=== PATIENT | male | born 1960 | race Caucasian/White ===

== ENCOUNTER → 2016-06-17 | Outpatient (CLI) | payer OTHER ==
[~2016-06-17] MED LIST: SIMV40TA2 PO
[2016-06-17 17:55] LABS: BLOOD UREA NITROGEN 17 mg/dl (7-18); BUN/CREATININE RATIO 17.2 (10-20); CALCIUM 8.9 mg/dl (8.5-10.1); CARBON DIOXIDE 26 mmol/L (21-32); CHLORIDE 105 mmol/L (98-107); CREATININE 0.97 mg/dl (0.60-1.40); GLUCOSE 105 mg/dl (70-99); POTASSIUM 3.6 mmol/L (3.5-5.1); SODIUM 140 mmol/L (136-145)
== END | disposition home or self-care (01) ==
LOC: C.LABBFT 12:56
PROVIDERS: ATTEND Internal Medicine
DX: E87.6 Hypokalemia (principal)

== ENCOUNTER → 2018-01-06 | Outpatient (CLI) | payer OTHER ==
[~2018-01-06] MED LIST changes: +BACL10TA PO; +DILT240C48 PO; +HYZ/10015 PO; +RANI150T85 PO; +ROSU20TA PO; -SIMV40TA2 PO
[2018-01-06 17:57] LABS: ALBUMIN 2.9 gm/dl (3.4-5.0); ALKALINE PHOSPHATASE 193 U/L (45-117); ALT/SGPT 65 U/L (12-78); AST/SGOT 37 U/L (15-37); BLOOD UREA NITROGEN 13 mg/dl (7-18); CALCIUM 8.2 mg/dl (8.5-10.1); CARBON DIOXIDE 20 mmol/L (21-32); CREATININE 0.85 mg/dl (0.60-1.40); GLUCOSE 92 mg/dl (70-99); POTASSIUM 4.2 mmol/L (3.5-5.1); SODIUM 139 mmol/L (136-145); TOTAL PROTEIN 8.4 gm/dl (6.4-8.2)
[2018-01-10 11:32] LABS: ANA SCREEN TC 249X NEGATIVE (NEGATIVE)
== END | disposition home or self-care (01) ==
LOC: C.LABBFT 11:52
PROVIDERS: ATTEND Internal Medicine
DX: R94.5 Abnormal results of liver function studies (principal)

== ENCOUNTER 2021-02-01 11:48 | Inpatient (IN) ==
[2021-02-01] MEDS ORDERED: ACETAMINOPHEN 500 MG TAB PO STA (11:58)
[2021-02-01] MEDS ORDERED: ONDANSETRON INJ 2 MG/ML 2 ML VIAL IV STA ×2 (11:58→20:05)
[2021-02-01] MEDS ORDERED: SODIUM CHLORIDE 0.9% 1000ML 1,000 ML IV SCH (12:00)
--- NOTE | 2021-02-01 12:03 | Emergency Department Note ---
Impression & Plan COVID-19, Hypokalemia, Hypomagnesuria, Weakness ED Provider Note Provider: Ash Marquis MD DATE OF SERVICE: 02/01/2021 CHIEF COMPLAINT: Cough, nausea vomiting, weakness HISTORY OF PRESENT ILLNESS: Patient is a 60-year-old gentleman past medical history including pneumonia, GERD, hypertension, and sleep apnea presenting here today via ambulance from home. Evidently for the past 3 days has had episodes of dry cough with some nausea and vomiting and weakness. Patient states he has not been able to eat or drink anything for the last day or so. Reports he was vaccinated for Covid. Reportedly did a home Covid test that was negative. Patient reports that he has a history of pneumonia again and is predominantly wheelchair-bound. Called his doctor and referred here for further evaluation. Patient is unsure if he has had a fever at home. No syncope or trauma reported. States he does feel thirsty. No sick contacts reported. Patient states his caregiver in particular noticed today that he was more weak and having some difficulty transferring getting around at home. Patient denies headache or chest pain or abdominal pain. Patient reports minimal diffuse myalgias. REVIEW OF SYSTEMS: A total of 10 review of systems was obtained and negative except as stated above in the HPI. PAST MEDICAL HISTORY: As noted above MEDICATIONS: Reviewed home medication list SOCIAL HISTORY: Non-smoker, lives at home PHYSICAL EXAM: GENERAL: alert and oriented in no acute distress on stretcher Head: normocephalic and atraumatic EYES: No injection, discharge or icterus. NECK: Trachea midline. Supple and freely moving without evidence of meningismus ENT: Mucous membranes pink and moist. TMs are secured by cerumen LUNGS: Airway patent. No retractions. Breath sounds clear anteriorly HEART: Regular tachycardic rate and rhythm. No chest wall tenderness ABDOMEN: Soft and non-tender, without guarding or rebound. SKIN: Acyanotic, warm, dry, without rashes EXTREMITIES: Without swelling or tenderness. Some chronic contractures in all 4 extremities are noted and unchanged per the patient. 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 No aphasia. No facial droop or slurred speech. EK bpm normal sinus rhythm. No PVC or PAC. No acute ST segment elevation or depression with a QTC of 459. Compared to previous December 10, 2017 no significant changes noted. CONTINUOUS CARDIAC MONITORING: was ordered and showed a heart rate of 80s-110 bpm in sinus tachycardia to normal sinus rhythm Patient's laboratory studies and imaging reviewed. Differential includes Infection, dehydration, metabolic abnormality, h ypo/hyperglycemia, electrolyte disturbance, anemia, hypoxia, cardiac sources, intracerebral event, toxicologic, neurologic, as well as other pathologies. IMPRESSION/MEDICAL DECISION MAKING: Patient presents with approximate 3 days of some cough nausea and vomiting limit intake now with some generalized weakness. Patient denies chest pain or abdominal pain he does not appear meningitic. Patient does have a temperature here and has not taken any antipyretics today. Given some Zofran for nausea as well as some Tylenol. Given some IV fluid. Lower suspicion for acute intra- abdominal pathology such as appendicitis, cholecystitis, perforation, or diverticulitis based on his lack of symptoms here. Patient without significant leg swelling. Chest x-ray completed to evaluate for pneumonia and Covid test was completed all the patient states he has been Covid vaccinated. Cultures and lactate sent given his febrile and tachycardic stay here initially. Patient's blood pressure is noted be somewhat elevated. Blood work without significant leukocytosis or anemia. Some hypokalemia of 2.9 is noted with some hypomagnesemia of 1.5 as well. Renal function appears stable. Slight AST elevation of 65. Procalcitonin not elevated. TSH within normal limits. No evidence of pancreatitis based on labs. Again with a benign abdomen doubly we need imaging of the abdomen pelvis. Chest x-ray per radiology without findings concerning for pneumonia or pulmonary edema/pulmonary effusions at this time. Given some potassium and magnesium supplementation. Patient updated with findings of a positive Covid test. Again the patient has been immunized. Patient is not hypoxic. Doubt a bacterial component to his complaints today given the work-up. Patient is appreciably upset with the news and very anxious. He update his son via phone. Patient does not feel comfortable going home. Patient states that he is worried he is going to and again quite tearful. He request observation here in the hospital. The hospitalist be contacted. He does report that his nausea is feeling some improved. DIAGNOSIS: COVID-19, hypokalemia, hypomagnesemia, weakness DISPOSITION: Hospitalist will evaluate Past Med/Surg History Medical History (Updated 02/01/21 @ 19:05 by Ash Marquis M.D.) Allergic rhinitis Arthrogryposis Dysphagia Erectile dysfunction Gastroesophageal reflux disease Hyperlipidemia Hypertension Hypokalemia Obstructive sleep apnea Sleep disturbances Tubular adenoma of colon Surgical History History of colonoscopy Family History Mother Lung disease Aneurysm of abdominal aorta Father Myocardial infarction Hx of CABG Denies family history of Ovarian cancer Prostate cancer Breast cancer Colorectal cancer Social History Smoking Status: Never smoker Second Hand Exposure: No; Do You Dip or Chew Tobacco: No; Tobacco Cessation Education Requested by Patient: No Hx Alcohol Use: Yes Alcohol type: beer Hx Substance Use: No Preferred Language: Welsh Communication Ability: Effective Visual Impairment: No Limitations Hearing Ability: Normal Meter Calibrator Required: No Beliefs That Will Affect Care: None marital status: Current Living Situation: Alone current occupational status: disabled Other Information That Helps Us Care for You: No Feels Safe at Home: Yes Childhood Exposure to Second-Hand Smoke: Yes Dental Care, Regularly: No Seatbelt Use: always Sunscreen Use: Yes Assistive Devices: Wheelchair Allergies Allergies Allergy/AdvReac Type Severity Reaction Status Date / Time No Known Drug Allergies Allergy Unknown NONE Verified 02/01/21 11:51 pollen extracts Allergy Unknown UNK Verified 02/01/21 11:51 Home Meds Previous Rx's Medication Instructions Recorded miscellaneous medical supply #1 ea 03/13/19 Wheelchair (Powered) (Power #1 ea 03/29/19 Wheelchair) baclofen 10 mg tablet 10 mg PO Q6H PRN #50 tab 04/28/20 losartan 100 1 tab PO DAILY #90 tab 06/10/20 mg-hydrochlorothiazide 25 mg tablet pantoprazole 40 mg tablet,delayed 40 mg PO DAILY #90 tab 07/21/20 release (Protonix) rosuvastatin 20 mg tablet (Crestor) 20 mg PO DAILY #90 tab 09/18/20 fluticasone propionate 50 2 spray INTNAS QAM #54.6 ml 11/07/20 mcg/actuation nasal spray,suspension (Flonase Allergy Relief) diltiazem HCl 360 mg 360 mg PO DAILY #90 tab 11/10/20 tablet,extended release 24 hr Powered Wheelchair See Rx Instructions .ROUTE .1 #1 ea 11/27/20 Results & Data (ED) Vital Signs Vital Signs - 24 hr 02/01/21 11:57 Temperature 38.2 C H Temperature Source Oral Pulse Rate 114 H Pulse Rhythm Regular Respiratory Rate 13 Respiratory Effort / Characteristics Non-Labored Respiratory Depth Normal Respiratory Pattern Regular Blood Pressure 175/140 H Blood Pressure Mean 151 Blood Pressure Position Sitting Pulse Oximetry 96 Oxygen Delivery Method Room Air Sepsis Recent Fever Within 48 Hours No Sepsis New/Unexplained Change in Mental Status N/A Sepsis Action Taken by Nursing No Action Required Laboratory Data Result diagrams: 02/01/21 12:08 02/01/21 12:08 Lab Results 02/01/21 02/01/21 02/01/21 Range/Units 12:08 12:08 12:08 WBC (4.8-10.8) K/uL RBC (4.7-6.1) M/uL Hgb (14.0-18.0) g/dL Hct (42-52) % MCV (80-100) fL MCH (25-34) pg MCHC (32-36) g/dL RDW Std Deviation (36.4-46.3) fL RDW Coeff of Taylor (11.5-14.5) % Plt Count (130-400) K/uL MPV (7.4-10.4) fL Immature Gran % (Auto) % Neut % (Auto) % Lymph % (Auto) % Trinity % (Auto) % Eos % (Auto) % Baso % (Auto) % Neut # (Auto) (1.4-6.5) K/uL Lymph # (Auto) (1.2-3.4) K/uL Trinity # (Auto) (0.11-0.59) K/uL Eos # (Auto) (0-0.5) K/uL Baso # (Auto) (0-0.2) K/uL Immature Gran # (Auto) (0.00-0.02) K/uL ESR (0-20) mm/hr Sodium 137 (136-145) mmol/L Potassium 2.9 L (3.5-5.1) mmol/L Chloride 102 (98-107) mmol/L Carbon Dioxide 25 (21-32) mmol/L Anion Gap 10.0 (3-11) BUN 20 H (7-18) mg/dl Creatinine 1.10 (0.6-1.4) mg/dl Est Cr Clr Drug Dosing 75.9 ml/min Est GFR ( Amer) 82.9 ml/min Est GFR (Non-Af Amer) 71.6 ml/min BUN/Creatinine Ratio 17.9 (10-20) Glucose 125 H (70-99) mg/dl Lactate 1.2 (0.4-2.0) mmol/L Calcium 8.2 L (8.5-10.1) mg/dl Magnesium 1.5 L (1.8-2.4) mg/dl Ferritin (8-388) ng/ml Total Bilirubin 0.6 (0.2-1) mg/dl AST 65 H (15-37) U/L ALT 75 (12-78) U/L Alkaline Phosphatase 124 H (45-117) U/L Troponin I < 0.015 (0-0.045) ng/ml C-Reactive Protein (0-0.29) mg/dl Total Protein 7.8 (6.4-8.2) gm/dl Albumin 3.7 (3.4-5.0) gm/dl Globulin 4.1 H (2.5-4.0) gm/dl Albumin/Globulin Ratio 0.9 (0.9-2) Lipase 164 (73-393) U/L Procalcitonin < 0.05 (0-0.5) ng/ml TSH 0.566 (0.300-4.500) uIu/ml COVID-19 Eval Order SARS-CoV-2 (PCR) (Negative) 02/01/21 02/01/21 02/01/21 Range/Units 12:08 12:08 12:08 WBC 7.90 (4.8-10.8) K/uL RBC 5.01 (4.7-6.1) M/uL Hgb 14.9 (14.0-18.0) g/dL Hct 42.7 (42-52) % MCV 85.2 (80-100) fL MCH 29.7 (25-34) pg MCHC 34.9 (32-36) g/dL RDW Std Deviation 43.2 (36.4-46.3) fL RDW Coeff of Taylor 13.9 (11.5-14.5) % Plt Count 174 (130-400) K/uL MPV 11.4 H (7.4-10.4) fL Immature Gran % (Auto) 0.1 % Neut % (Auto) 73.8 % Lymph % (Auto) 15.2 % Trinity % (Auto) 10.8 % Eos % (Auto) 0.0 % Baso % (Auto) 0.1 % Neut # (Auto) 5.83 (1.4-6.5) K/uL Lymph # (Auto) 1.20 (1.2-3.4) K/uL Trinity # (Auto) 0.85 H (0.11-0.59) K/uL Eos # (Auto) 0.00 (0-0.5) K/uL Baso # (Auto) 0.01 (0-0.2) K/uL Immature Gran # (Auto) 0.01 (0.00-0.02) K/uL ESR 52 H (0-20) mm/hr Sodium (136-145) mmol/L Potassium (3.5-5.1) mmol/L Chloride (98-107) mmol/L Carbon Dioxide (21-32) mmol/L Anion Gap (3-11) BUN (7-18) mg/dl Creatinine (0.6-1.4) mg/dl Est Cr Clr Drug Dosing ml/min Est GFR ( Amer) ml/min Est GFR (Non-Af Amer) ml/min BUN/Creatinine Ratio (10-20) Glucose (70-99) mg/dl Lactate (0.4-2.0) mmol/L Calcium (8.5-10.1) mg/dl Magnesium (1.8-2.4) mg/dl Ferritin 1592.0 H (8-388) ng/ml Total Bilirubin (0.2-1) mg/dl AST (15-37) U/L ALT (12-78) U/L Alkaline Phosphatase (45-117) U/L Troponin I (0-0.045) ng/ml C-Reactive Protein 4.53 H (0-0.29) mg/dl Total Protein (6.4-8.2) gm/dl Albumin (3.4-5.0) gm/dl Globulin (2.5-4.0) gm/dl Albumin/Globulin Ratio (0.9-2) Lipase (73-393) U/L Procalcitonin (0-0.5) ng/ml TSH (0.300-4.500) uIu/ml COVID-19 Eval Order SARS-CoV-2 (PCR) (Negative) 02/01/21 02/01/21 Range/Units 12:23 12:23 WBC (4.8-10.8) K/uL RBC (4.7-6.1) M/uL Hgb (14.0-18.0) g/dL Hct (42-52) % MCV (80-100) fL MCH (25-34) pg MCHC (32-36) g/dL RDW Std Deviation (36.4-46.3) fL RDW Coeff of Taylor (11.5-14.5) % Plt Count (130-400) K/uL MPV (7.4-10.4) fL Immature Gran % (Auto) % Neut % (Auto) % Lymph % (Auto) % Trinity % (Auto) % Eos % (Auto) % Baso % (Auto) % Neut # (Auto) (1.4-6.5) K/uL Lymph # (Auto) (1.2-3.4) K/uL Trinity # (Auto) (0.11-0.59) K/uL Eos # (Auto) (0-0.5) K/uL Baso # (Auto) (0-0.2) K/uL Immature Gran # (Auto) (0.00-0.02) K/uL ESR (0-20) mm/hr Sodium (136-145) mmol/L Potassium (3.5-5.1) mmol/L Chloride (98-107) mmol/L Carbon Dioxide (21-32) mmol/L Anion Gap (3-11) BUN (7-18) mg/dl Creatinine (0.6-1.4) mg/dl Est Cr Clr Drug Dosing ml/min Est GFR ( Amer) ml/min Est GFR (Non-Af Amer) ml/min BUN/Creatinine Ratio (10-20) Glucose (70-99) mg/dl Lactate (0.4-2.0) mmol/L Calcium (8.5-10.1) mg/dl Magnesium (1.8-2.4) mg/dl Ferritin (8-388) ng/ml Total Bilirubin (0.2-1) mg/dl AST (15-37) U/L ALT (12-78) U/L Alkaline Phosphatase (45-117) U/L Troponin I (0-0.045) ng/ml C-Reactive Protein (0-0.29) mg/dl Total Protein (6.4-8.2) gm/dl Albumin (3.4-5.0) gm/dl Globulin (2.5-4.0) gm/dl Albumin/Globulin Ratio (0.9-2) Lipase (73-393) U/L Procalcitonin (0-0.5) ng/ml TSH (0.300-4.500) uIu/ml COVID-19 Eval Order Covid19 at [facility] SARS-CoV-2 (PCR) POSITIVE A* (Negative) Administered Medications Magnesium Sulfate/Dextrose (Magnesium Sulfate / D5w) 1 gm in 100 mls @ 50 ml s/hr IV Q2H ANTONY Stop: 02/01/21 20:14 Last Admin: 02/01/21 18:51 Dose: 50 mls/hr Documented by: [id number] Infusion: 02/01/21 18:51 Dose: 50 mls/hr Documented by: [id number] Admin: 02/01/21 17:00 Dose: 50 mls/hr Documented by: [id number] Ondansetron HCl (Ondansetron Inj 2 Mg/Ml 2 Ml Vial) 4 mg IV Q6H PRN PRN Reason: nausea/vomitting Stop: 03/03/21 16:44 Last Admin: 02/01/21 17:01 Dose: 4 mg Documented by: [id number] Discontinued Medications Acetaminophen (Acetaminophen 500 Mg Tab) 1,000 mg PO NOW STA Stop: 02/01/21 11:59 Last Admin: 02/01/21 12:43 Dose: 1,000 mg Documented by: [id number] Sodium Chloride (Nss 1000ml) 1,000 mls @ 999 mls/hr IV .Q1H1M ANTONY Stop: 02/01/21 13:00 Last Infusion: 02/01/21 13:57 Dose: 0 mls/hr Documented by: [id number] Admin: 02/01/21 12:43 Dose: 999 mls/hr Documented by: [id number] Magnesium Sulfate/Dextrose (Magnesium Sulfate / D5w) 1 gm in 100 mls @ 200 mls/hr IV Q30M ANTONY Stop: 02/01/21 14:29 Last Infusion: 02/01/21 15:51 Dose: 0 mls/hr Documented by: [id number] Admin: 02/01/21 14:59 Dose: 100 mls/hr Documented by: [id number] Infusion: 02/01/21 14:59 Dose: 0 mls/hr Documented by: [id number] Admin: 02/01/21 14:32 Dose: 200 mls/hr Documented by: [id number] Potassium Chloride (K Chin / Wtr) 10 meq in 100 mls @ 100 mls/hr IV ONE ONE Stop: 02/01/21 15:07 Last Infusion: 02/01/21 15:37 Dose: 0 mls/hr Documented by: [id number] Admin: 02/01/21 14:32 Dose: 100 mls/hr Documented by: [id number] Ondansetron HCl (Ondansetron Inj 2 Mg/Ml 2 Ml Vial) 4 mg IV NOW STA Stop: 02/01/21 11:59 Last Admin: 02/01/21 12:43 Dose: 4 mg Documented by: [id number] Potassium Chloride (Potassium Chloride Crtab 20 Meq Tabcr) 40 meq PO NOW STA Stop: 02/01/21 14:09 Last Admin: 02/01/21 14:32 Dose: 40 meq Documented by: [id number] Potassium Chloride (Potassium Chloride Crtab 20 Meq Tabcr) 20 meq PO ONE STA Stop: 02/01/21 16:15 Last Admin: 02/01/21 17:00 Dose: 20 meq Documented by: [id number] Imaging Data Radiologist's Impression: Chest X-Ray 02/01/21 11:59 XR chest 1V portable HISTORY: weakness COMPARISON: Chest 08/03/2018. FINDINGS: No pneumothorax. No pleural effusions. The patient's overlapping right arm partially obscures the right lung base. However, no definite focal lung consolidations to suggest pneumonia. No evidence for pulmonary edema. The heart is normal in size. Postoperative changes within the right shoulder. IMPRESSION: No acute process. ACT 112: Negative or not required by law. Electronically signed by: Favian Gudino M.D. 02/01/2021 12:36 PM Discharge Plan Visit Data Chief Complaint: Illness ED Provider: Ash Marquis Discharge Problem: COVID-19, Hypokalemia, Hypomagnesuria, Weakness Patient Disposition: Admitted As Inpatient Discharge Instructions Interventions: ED Discharge Assessment Last Done: 02/01/21 15:50
[2021-02-01 12:32] LABS: Basophils # (auto) 0.01 K/uL (0-0.2); Basophils % (auto) 0.1 %; Hematocrit (blood only) 42.7 % (42-52); Hemoglobin 14.9 g/dL (14.0-18.0); Immature Granulocytes # (auto) 0.01 K/uL (0.00-0.02); Immature Granulocytes % (auto) 0.1 %; Lymphocytes % (auto) 15.2 %; Mean Corpuscular Hemoglobin 29.7 pg (25-34); Mean Corpuscular Hgb Conc 34.9 g/dL (32-36); Mean Corpuscular Volume 85.2 fL (80-100); Mean Platelet Volume 11.4 fL (7.4-10.4); Monocytes # (auto) 0.85 K/uL (0.11-0.59); Monocytes % (auto) 10.8 %; Neutrophils # (auto) 5.83 K/uL (1.4-6.5); Neutrophils % (auto) 73.8 %; Platelet Count 174 K/uL (130-400); RDW Coefficient of Variation 13.9 % (11.5-14.5); RDW Standard Deviation 43.2 fL (36.4-46.3); Red Blood Count 5.01 M/uL (4.7-6.1)
--- NOTE | 2021-02-01 12:38 | XRay Report ---
XR chest 1V portable HISTORY: weakness COMPARISON: Chest 08/03/2018. FINDINGS: No pneumothorax. No pleural effusions. The patient's overlapping right arm partially obscur es the right lung base. However, no definite focal lung consolidations to suggest pneumonia. No evide nce for pulmonary edema. The heart is normal in size. Postoperative changes within the right shoulder . IMPRESSION: No acute process. ACT 112: Negative or not required by law. Electronically signed by: Favian Gudino M.D. 02/01/2021 12:36 PM
[2021-02-01 12:42] LABS: Alanine Aminotransferase 75 U/L (12-78); Albumin Level 3.7 gm/dl (3.4-5.0); Aspartate Aminotransferase 65 U/L (15-37); BUN Creatinine Ratio 17.9 (10-20); Blood Urea Nitrogen 20 mg/dl (7-18); Calcium 8.2 mg/dl (8.5-10.1); Carbon Dioxide 25 mmol/L (21-32); Chloride 102 mmol/L (98-107); Creatinine Clr Calc Pharmacy 75.9 ml/min; Est GFR (African American) 82.9 ml/min; Est GFR (Non-African American) 71.6 ml/min; Glucose 125 mg/dl (70-99); Lipase 164 U/L (73-393); Magnesium 1.5 mg/dl (1.8-2.4); Potassium 2.9 mmol/L (3.5-5.1); Sodium 137 mmol/L (136-145)
[2021-02-01 12:54] LABS: Albumin Globulin Ratio 0.9 (0.9-2); Alkaline Phosphatase 124 U/L (45-117); Bilirubin,Total 0.6 mg/dl (0.2-1); Globulin 4.1 gm/dl (2.5-4.0); Thyroid Stimulating Hormone 0.566 uIu/ml (0.300-4.500); Total Protein 7.8 gm/dl (6.4-8.2); Troponin I < 0.015 ng/ml (0-0.045)
[2021-02-01] MEDS ORDERED: POTASSIUM CHLORIDE / WTR 10 MEQ/100 ML PLCT IV ONE (14:08)
[2021-02-01] MEDS ORDERED: POTASSIUM CHLORIDE CRTAB 20 MEQ TABCR PO STA ×2 (14:08→16:14)
[2021-02-01] MEDS: MAGNESIUM SULFATE / D5W 1 GM/100 ML BAG IV SCH ×4 (14:32→18:51)
[2021-02-01] MEDS ORDERED: MAGNESIUM SULFATE / D5W 1 GM/100 ML BAG IV STA (15:13)
--- NOTE | 2021-02-01 15:19 | History & Physical Report ---
Date of Service February 01, 2021 Assessment & Plan (1) COVID-19: Plan: COVID + with vaccine - not hypoxic - not a candidate at this time for remdisivir or decadron or toczilizumab - follow daily - supportive care - Zofran 4mg IV q6 hours prn (2) Obstructive sleep apnea: Plan: not on therapy at home (3) Hypokalemia: Plan: Repleted in the EMD with oral and IV - 20 MEQ tonight - follow BMP in morning (4) Hypertension: Plan: Continue ARB (5) Hyperlipidemia: Plan: Continue statin (6) Gastroesophageal reflux disease: Plan: Cotninue pantoprazole 40 mg daily (7) Hypomagnesemia: Plan: Replete magnesium for total 4 gm with continued N/v/diarrhea - follow bmp inthe morning History of Present Illness Primary Care Provider: Robin Mandujano MD 60 YOM with past medical history of: Arthrogyposis, tubular adenoma of the colon, HTN, HLD, GERD. Patient comes into the ED today via EMS secondary to 3 day history of Fevers, loss of appetite, n/v, diarrhea. Subsequently found to have COVID 19 pneumonia, although he is vaccinated. Patient is not hypoxic at this time, but is having difficulty eating, drinking as well as "keeping anything he does take in down". Patient does have skilled help that takes care of him on daily basis until the evening. He states that none of them are feeling ill. He states that he has not gone out or gone anywhere and he lives at home by himself. Patient will be observed overnight for electrolyte replacement. 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 Patient is a DNR/DNI COVID status as above Allergies Allergy/AdvReac Type Severity Reaction Status Date / Time No Known Drug Allergies Allergy Unknown NONE Verified 02/01/21 11:51 pollen extracts Allergy Unknown UNK Verified 02/01/21 11:51 Home Medications Medication Instructions Recorded Confirmed Type miscellaneous medical supply #1 ea 03/13/19 09/22/20 Rx Wheelchair (Powered) (Power #1 ea 03/29/19 09/22/20 Rx Wheelchair) baclofen 10 mg tablet 10 mg PO Q6H PRN #50 tab 04/28/20 02/01/21 Rx losartan 100 1 tab PO DAILY #90 tab 06/10/20 02/01/21 Rx mg-hydrochlorothiazide 25 mg tablet pantoprazole 40 mg tablet,delayed 40 mg PO DAILY #90 tab 07/21/20 02/01/21 Rx release (Protonix) rosuvastatin 20 mg tablet (Crestor) 20 mg PO DAILY #90 tab 09/18/20 02/01/21 Rx fluticasone propionate 50 2 spray INTNAS QAM #54.6 ml 11/07/20 02/01/21 Rx mcg/actuation nasal spray,suspension (Flonase Allergy Relief) diltiazem HCl 360 mg 360 mg PO DAILY #90 tab 11/10/20 02/01/21 Rx tablet,extended release 24 hr Powered Wheelchair See Rx Instructions .ROUTE .1 #1 ea 11/27/20 02/01/21 Rx Past Med/Surg History Medical History Allergic rhinitis Arthrogryposis Dysphagia Erectile dysfunction Gastroesophageal reflux disease Hyperlipidemia Hypertension Hypokalemia Obstructive sleep apnea Sleep disturbances Tubular adenoma of colon Surgical History History of colonoscopy Family History Mother Lung disease Aneurysm of abdominal aorta Father Myocardial infarction Hx of CABG Denies family history of Ovarian cancer Prostate cancer Breast cancer Colorectal cancer Social History Smoking Status: Never smoker Second Hand Exposure: No; Do You Dip or Chew Tobacco: No; Tobacco Cessation Education Requested by Patient: No Hx Alcohol Use: Yes Alcohol type: beer Hx Substance Use: No Preferred Language: Khmer Communication Ability: Effective Visual Impairment: No Limitations Hearing Ability: Normal 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: No Beliefs That Will Affect Care: None marital status: Current Living Situation: Alone current occupational status: disabled Other Information That Helps Us Care for You: No Feels Safe at Home: Yes Childhood Exposure to Second-Hand Smoke: Yes Dental Care, Regularly: No Seatbelt Use: always Sunscreen Use: Yes Assistive Devices: Wheelchair Review of Systems Review of Systems: REVIEW OF SYSTEMS: Constitutional: anxious and tearful Eyes: No diplopia, no worsening or blurred vision ENT: normal hearing, no trouble swallowing Respiratory: (+) dyspnea, No cough, sputum, dyspnea, on exertion Cardiovascular: No chest pain, tightness or palpitations Abdomen: (+) nausea, vomiting, diarrhea, No pain, or constipation Musculoskeletal: (+) deformities wheel chair dependant Neurologic: as above Psychiatric: No anxiety or depression Skin: No rash or itch Physical Exam Physical Exam: PHYSICAL EXAM: General: awake, anxious Head: Normocephalic, atraumatic ENT: PERRL, EOMI, no pharyngeal exudate, mucous membranes moist Neuro: AAO x 3, speech clear and appropriate, strength intact bilaterally 5/5, sensation intact and equal all extremities and dermatomes, no pronator drift Chest: equal rise and fall of the chest, no accessory muscle use, no heaves or thrills, Clear to auscultation, on room air, Cardiac: Regular rate and rhythm, telemetry reviewed, skin warm dry, cap refill <3 seconds, peripheral pulses +2 no JVD, no murmur, no JVD, no edema GI: NABS x 4 quadrants, soft, nontender to palpation, no rebound, guarding or tenderness : Spontaneously voiding, no pain, no CVA tenderness, Extremities: congenital deformities Psych: Normal mood and affect Skin: no rash or erythema Results & Data Results & Data ([facility]) Vital Signs (Past 12 Hours) Vital Signs Temp Pulse Resp BP Pulse Ox 02/01/21 11:57 38.2 C H 114 H 13 175/140 H 96 Laboratory Results Abnormal lab results 02/01/21 02/01/21 02/01/21 Range/Units 12:08 12:08 12:23 MPV 11.4 H (7.4-10.4) fL [place] # (Auto) 0.85 H (0.11-0.59) K/uL Potassium 2.9 L (3.5-5.1) mmol/L BUN 20 H (7-18) mg/dl Glucose 125 H (70-99) mg/dl Calcium 8.2 L (8.5-10.1) mg/dl Magnesium 1.5 L (1.8-2.4) mg/dl AST 65 H (15-37) U/L Alkaline Phosphatase 124 H (45-117) U/L Globulin 4.1 H (2.5-4.0) gm/dl SARS-CoV-2 (PCR) POSITIVE A* (Negative) Diagnostic Findings Chest X-Ray 02/01/21 11:59 XR chest 1V portable HISTORY: weakness COMPARISON: Chest 08/03/2018. FINDINGS: No pneumothorax. No pleural effusions. The patient's overlapping right arm partially obscures the right lung base. However, no definite focal lung consolidations to suggest pneumonia. No evidence for pulmonary edema. The heart is normal in size. Postoperative changes within the right shoulder. IMPRESSION: No acute process. ACT 112: Negative or not required by law. Electronically signed by: Favian Gudino M.D. 02/01/2021 12:36 PM Medications Administered Discontinued Medications Acetaminophen (Acetaminophen 500 Mg Tab) 1,000 mg PO NOW STA Stop: 02/01/21 11:59 Last Admin: 02/01/21 12:43 Dose: 1,000 mg Documented by: [id number] Sodium Chloride (Nss 1000ml) 1,000 mls @ 999 mls/hr IV .Q1H1M ANTONY Stop: 02/01/21 13:00 Last Infusion: 02/01/21 13:57 Dose: 0 mls/hr Documented by: [id number] Admin: 02/01/21 12:43 Dose: 999 mls/hr Documented by: [id number] Magnesium Sulfate/Dextrose (Magnesium Sulfate / D5w) 1 gm in 100 mls @ 200 mls/hr IV Q30M ANTONY Stop: 02/01/21 14:29 Last Admin: 02/01/21 14:59 Dose: 100 mls/hr Documented by: [id number] Infusion: 02/01/21 14:59 Dose: 0 mls/hr Documented by: [id number] Admin: 02/01/21 14:32 Dose: 200 mls/hr Documented by: [id number] Potassium Chloride (K Chin / Wtr) 10 meq in 100 mls @ 100 mls/hr IV ONE ONE Stop: 02/01/21 15:07 Last Admin: 02/01/21 14:32 Dose: 100 mls/hr Documented by: [id number] Ondansetron HCl (Ondansetron Inj 2 Mg/Ml 2 Ml Vial) 4 mg IV NOW STA Stop: 02/01/21 11:59 Last Admin: 02/01/21 12:43 Dose: 4 mg Documented by: [id number] Potassium Chloride (Potassium Chloride Crtab 20 Meq Tabcr) 40 meq PO NOW STA Stop: 02/01/21 14:09 Last Admin: 02/01/21 14:32 Dose: 40 meq Documented by: [id number] Home Medications miscellaneous medical supply #1 ea 03/13/19 [Rx Confirmed 09/22/20] Wheelchair (Powered) (Power Wheelchair) #1 ea 03/29/19 [Rx Confirmed 09/22/20] baclofen 10 mg tablet 10 mg PO Q6H PRN #50 tab 04/28/20 [Rx Confirmed 02/01/21] losartan 100 mg-hydrochlorothiazide 25 mg tablet 1 tab PO DAILY #90 tab 06/10/20 [Rx Confirmed 02/01/21] pantoprazole 40 mg tablet,delayed release (Protonix) 40 mg PO DAILY #90 tab 07/21/20 [Rx Confirmed 02/01/21] rosuvastatin 20 mg tablet (Crestor) 20 mg PO DAILY #90 tab 09/18/20 [Rx Confirmed 02/01/21] fluticasone propionate 50 mcg/actuation nasal spray,suspension (Flonase Allergy Relief) 2 spray INTNAS QAM #54.6 ml 11/07/20 [Rx Confirmed 02/01/21] diltiazem HCl 360 mg tablet,extended release 24 hr 360 mg PO DAILY #90 tab 11/10/20 [Rx Confirmed 02/01/21] Powered Wheelchair See Rx Instructions .ROUTE .1 #1 ea 11/27/20 [Rx Confirmed 02/01/21] Active Medications Magnesium Sulfate/Dextrose (Magnesium Sulfate / D5w) 1 gm in 100 mls @ 50 mls/hr IV Q2H STA Stop: 02/01/21 17:12 ECG Additional Comments: Normal sinus rhythm Normal ECG When compared with ECG of 24-DEC-2017 14:50, No significant change was found Code Status & VTE Plan Code Status CODE: DNR/DNI VTE: SCDs, Lovenox 40 sub q daily VTE Prophylaxis Plan VTE Prophylaxis will be ordered: Yes Supervising Physician Co-Signing Physician Notes I have seen and agree with the above PG Care Time/CCT Total # of Minutes Spent Total Time Spent with Patient: Total time spent is greater than 50% in coordination of care (as documented) at patient's floor/unit and/or counseling patient: Coding Level of Care Code INT OBSERVATION CARE 50M LVL 2 Diagnoses COVID-19 U07.1 Obstructive sleep apnea G47.33 Hypokalemia E87.6 Hypertension I10 Hypertension type: essential hypertension Hyperlipidemia E78.5 Gastroesophageal reflux disease K21.9 Hypomagnesemia E83.42 (1) Hypertension Hypertension type: essential hypertension Qualified Code(s): I10 - Essential (primary) hypertension
[2021-02-01] MEDS ORDERED: BACLOFEN 10 MG TAB PO PRN (16:10)
[2021-02-01] MEDS ORDERED: ONDANSETRON INJ 2 MG/ML 2 ML VIAL IV PRN ×3 (16:44→16:48)
[2021-02-01 17:05] LABS: C Reactive Protein 4.53 mg/dl (0-0.29)
[2021-02-01 18:31] LABS: Fibrinogen 500 mg/dl (184-400)
[2021-02-01] MEDS ORDERED: PROMETHAZINE HCL 12.5 MG in SODIUM CHLORIDE 0.9% 50 ML IV PRN (20:06)
[2021-02-01 20:07] LABS: Appearance Urine Cloudy (Clear); Bacteria Urine Automated Negative (Negative); Bilirubin Urine Negative (Negative); Blood Urine Negative (Negative); Color Urine Dark Yellow; Epithelial Cell Urine Auto 20-30 /lpf (0-5); Glucose Urine UA Negative (Negative); Ketones Urine 1+ (Negative); Leukocyte Esterase Urine Negative (Negative); Nitrite Urine Negative (Negative); Protein Urine 1+ (Negative); RBC Urine Automated 0-4 /hpf (0-4); Specific Gravity Urine 1.028 (1.000-1.030); Urobilinogen Urine Negative (Negative); pH Urine 5.5 (4.5-7.5)
[2021-02-01] MEDS: ENOXAPARIN INJ 40 MG/0.4 ML SYR SQ SCH (20:22)
--- NOTE | 2021-02-02 06:18 | Electrocardiogram Report ---
Test Reason : Blood Pressure : / mmHG Vent. Rate : 099 BPM Atrial Rate : 099 BPM P-R Int : 124 ms QRS Dur : 094 ms QT Int : 358 ms P-R-T Axes : 046 001 033 degrees QTc Int : 459 ms Normal sinus rhythm Normal ECG When compared with ECG of 24-DEC-2017 14:50, No significant change was found Confirmed by Mamadou Daley ([id number]) on 02/02/2021 6:17:43 AM Referred By: Confirmed By:Mamadou Daley
[2021-02-02 07:57] LABS: Hematocrit (blood only) 40.9 % (42-52); Hemoglobin 14.2 g/dL (14.0-18.0); Mean Corpuscular Hemoglobin 29.7 pg (25-34); Mean Corpuscular Hgb Conc 34.7 g/dL (32-36); Mean Corpuscular Volume 85.6 fL (80-100); Mean Platelet Volume 11.4 fL (7.4-10.4); Platelet Count 164 K/uL (130-400); RDW Coefficient of Variation 13.8 % (11.5-14.5); RDW Standard Deviation 43.8 fL (36.4-46.3); Red Blood Count 4.78 M/uL (4.7-6.1); White Blood Count 10.05 K/uL (4.8-10.8)
[2021-02-02] MEDS: FLUTICASONE PROPIONATE NA SPR 16 GM BTL NAE SCH (08:05)
[2021-02-02] MEDS: dilTIAZem HCL 180 MG CAPCR PO SCH (08:07)
[2021-02-02] MEDS: PANTOprazole 40 MG TAB PO SCH (08:07)
[2021-02-02] MEDS: ROSUVASTATIN CALCIUM 20 MG TAB PO SCH (08:07)
[2021-02-02] MEDS: LOSARTAN/HCTZ 50/12.5MG TAB PO SCH (08:07)
[2021-02-02 08:12] LABS: Basophils # (auto) 0.01 K/uL (0-0.2); Basophils % (auto) 0.1 %; Immature Granulocytes # (auto) 0.02 K/uL (0.00-0.02); Immature Granulocytes % (auto) 0.2 %; Lymphocytes # (auto) 2.35 K/uL (1.2-3.4); Lymphocytes % (auto) 23.4 %; Monocytes # (auto) 0.71 K/uL (0.11-0.59); Monocytes % (auto) 7.1 %; Neutrophils # (auto) 6.96 K/uL (1.4-6.5); Neutrophils % (auto) 69.2 %
[2021-02-02 08:24] LABS: BUN Creatinine Ratio 18.3 (10-20); Calcium 7.9 mg/dl (8.5-10.1); Creatinine Clr Calc Pharmacy 90.5 ml/min; Est GFR (African American) 102.9 ml/min; Est GFR (Non-African American) 88.8 ml/min; Magnesium 2.4 mg/dl (1.8-2.4); Potassium 3.2 mmol/L (3.5-5.1)
--- NOTE | 2021-02-02 12:06 | Hospitalist Progress Note ---
Date of Service February 02, 2021 Assessment & Plan (1) COVID-19: Plan: COVID + with vaccine - not hypoxic, no respiratory distress, has a cough, will give Codeine q6 PRN - not a candidate at this time for remdisivir or decadron or toczilizumab dehydrated, will give one more liter of NSS + 40mEq of KCl (2) Obstructive sleep apnea: Plan: not on therapy at home (3) Hypokalemia: Plan: up to 3.2 from 2.9 on admission give 40mEq in IV fluids (4) Hypertension: Plan: Continue ARB (5) Hyperlipidemia: Plan: Continue statin (6) Gastroesophageal reflux disease: Plan: Cotninue pantoprazole 40 mg daily (7) Hypomagnesemia: Plan: Replete magnesium for total 4 gm with continued N/v/diarrhea - follow bmp inthe morning Admission and Anticipated Discharge Date Admission Date: February 01, 2021 Subjective reviewed chart and labs, admitted yesterday patient says she still feels really terrible, he has malaise, cough, low grade fever, poor appetite no nausea/vomiting or diarrhea breathing is stable on room air discussed that I would be keeping him here, change to full admission K a little low still, give one more liter of NSS with 40mEq of KCl Review of Systems Review of Systems: All systems reviewed & are unremarkable except as noted in Subjective Constitutional: + fever, + chills, + sweats, + body aches, + fatigue, + malaise and + weakness Respiratory: + cough; no dyspnea Cardiovascular: no chest pain and no edema Gastrointestinal: + early satiety; no abdominal pain, no nausea, no vomiting and no diarrhea/loose stools Physical Exam Constitutional: well developed, well nourished and + ill appearing; no acute distress and + uncomfortable Neck: trachea midline, no thyromegaly Respiratory: normal respiratory effort, lungs clear to auscultation Cardiovascular: RRR, no murmur, no edema Gastrointestinal (Abdomen): normal bowel sounds, soft, nontender, no hepatosplenomegaly Musculoskeletal: Head/Neck/Chest: normocephalic, head atraumatic and neck supple Extremities: + abnormal strength; + extremities abnormal to inspection (upper extremities short, rotated, muscle atrophy), no cyanosis, no clubbing and no petechiae Skin: no rashes, warm and dry Neurologic: normal touch/pain/proprioception, CN's II-XI intact bilaterally, moves all extremities and awake; no focal motor deficits Psychiatric: A+Ox3, euthymic affect Results & Data Results & Data ([facility]) Vital Signs (Past 12 Hours) Vital Signs Temp Pulse Resp BP Pulse Ox 02/02/21 07:41 37.6 C H 101 H 22 151/85 H 92 Laboratory Results Laboratory Results - last 24 hr 02/01/21 02/01/21 02/01/21 12:08 12:08 12:08 WBC RBC Hgb Hct MCV MCH MCHC RDW Std Deviation RDW Coeff of Taylor Plt Count MPV Immature Gran % (Auto) Neut % (Auto) Lymph % (Auto) [place] % (Auto) Eos % (Auto) Baso % (Auto) Neut # (Auto) Lymph # (Auto) [place] # (Auto) Eos # (Auto) Baso # (Auto) Immature Gran # (Auto) ESR Fibrinogen Sodium 137 Potassium 2.9 L Chloride 102 Carbon Dioxide 25 Anion Gap 10.0 BUN 20 H Creatinine 1.10 Est Cr Clr Drug Dosing 75.9 Est GFR ( Amer) 82.9 Est GFR (Non-Af Amer) 71.6 BUN/Creatinine Ratio 17.9 Glucose 125 H Lactate 1.2 Calcium 8.2 L Magnesium 1.5 L Ferritin Total Bilirubin 0.6 AST 65 H ALT 75 Alkaline Phosphatase 124 H Lactate Dehydrogenase Troponin I < 0.015 C-Reactive Protein Total Protein 7.8 Albumin 3.7 Globulin 4.1 H Albumin/Globulin Ratio 0.9 Lipase 164 Procalcitonin < 0.05 TSH 0.566 Urine Color Urine Appearance Urine pH Ur Specific [place] Urine Protein Urine Glucose (UA) Urine Ketones Urine Blood Urine Nitrite Urine Bilirubin Urine Urobilinogen Ur Leukocyte Esterase Urine WBC (Auto) Urine RBC (Auto) U Hyaline Cast (Auto) U Epithel Cells (Auto) Urine Bacteria (Auto) COVID-19 Eval Order SARS-CoV-2 (PCR) Hepatitis C Ab Screen 02/01/21 02/01/21 02/01/21 12:08 12:08 12:08 WBC 7.90 RBC 5.01 Hgb 14.9 Hct 42.7 MCV 85.2 MCH 29.7 MCHC 34.9 RDW Std Deviation 43.2 RDW Coeff of Taylor 13.9 Plt Count 174 MPV 11.4 H Immature Gran % (Auto) 0.1 Neut % (Auto) 73.8 Lymph % (Auto) 15.2 [place] % (Auto) 10.8 Eos % (Auto) 0.0 Baso % (Auto) 0.1 Neut # (Auto) 5.83 Lymph # (Auto) 1.20 [place] # (Auto) 0.85 H Eos # (Auto) 0.00 Baso # (Auto) 0.01 Immature Gran # (Auto) 0.01 ESR 52 H Fibrinogen Sodium Potassium Chloride Carbon Dioxide Anion Gap BUN Creatinine Est Cr Clr Drug Dosing Est GFR ( Amer) Est GFR (Non-Af Amer) BUN/Creatinine Ratio Glucose Lactate Calcium Magnesium Ferritin 1592.0 H Total Bilirubin AST ALT Alkaline Phosphatase Lactate Dehydrogenase Troponin I C-Reactive Protein 4.53 H Total Protein Albumin Globulin Albumin/Globulin Ratio Lipase Procalcitonin TSH Urine Color Urine Appearance Urine pH Ur Specific [place] Urine Protein Urine Glucose (UA) Urine Ketones Urine Blood Urine Nitrite Urine Bilirubin Urine Urobilinogen Ur Leukocyte Esterase Urine WBC (Auto) Urine RBC (Auto) U Hyaline Cast (Auto) U Epithel Cells (Auto) Urine Bacteria (Auto) COVID-19 Eval Order SARS-CoV-2 (PCR) Hepatitis C Ab Screen 02/01/21 02/01/21 02/01/21 12:23 12:23 18:03 WBC RBC Hgb Hct MCV MCH MCHC RDW Std Deviation RDW Coeff of Taylor Plt Count MPV Immature Gran % (Auto) Neut % (Auto) Lymph % (Auto) [place] % (Auto) Eos % (Auto) Baso % (Auto) Neut # (Auto) Lymph # (Auto) [place] # (Auto) Eos # (Auto) Baso # (Auto) Immature Gran # (Auto) ESR Fibrinogen 500 H Sodium Potassium Chloride Carbon Dioxide Anion Gap BUN Creatinine Est Cr Clr Drug Dosing Est GFR ( Amer) Est GFR (Non-Af Amer) BUN/Creatinine Ratio Glucose Lactate Calcium Magnesium Ferritin Total Bilirubin AST ALT Alkaline Phosphatase Lactate Dehydrogenase Troponin I C-Reactive Protein Total Protein Albumin Globulin Albumin/Globulin Ratio Lipase Procalcitonin TSH Urine Color Urine Appearance Urine pH Ur Specific [place] Urine Protein Urine Glucose (UA) Urine Ketones Urine Blood Urine Nitrite Urine Bilirubin Urine Urobilinogen Ur Leukocyte Esterase Urine WBC (Auto) Urine RBC (Auto) U Hyaline Cast (Auto) U Epithel Cells (Auto) Urine Bacteria (Auto) COVID-19 Eval Order Covid19 at [facility] SARS-CoV-2 (PCR) POSITIVE A* Hepatitis C Ab Screen 02/01/21 02/01/21 02/02/21 18:03 19:55 07:26 WBC 10.05 RBC 4.78 Hgb 14.2 Hct 40.9 L MCV 85.6 MCH 29.7 MCHC 34.7 RDW Std Deviation 43.8 RDW Coeff of Taylor 13.8 Plt Count 164 MPV 11.4 H Immature Gran % (Auto) 0.2 Neut % (Auto) 69.2 Lymph % (Auto) 23.4 [place] % (Auto) 7.1 Eos % (Auto) 0.0 Baso % (Auto) 0.1 Neut # (Auto) 6.96 H Lymph # (Auto) 2.35 [place] # (Auto) 0.71 H Eos # (Auto) 0.00 Baso # (Auto) 0.01 Immature Gran # (Auto) 0.02 ESR Fibrinogen Sodium Potassium Chloride Carbon Dioxide Anion Gap BUN Creatinine Est Cr Clr Drug Dosing Est GFR ( Amer) Est GFR (Non-Af Amer) BUN/Creatinine Ratio Glucose Lactate Calcium Magnesium Ferritin Total Bilirubin AST ALT Alkaline Phosphatase Lactate Dehydrogenase 380 H Troponin I C-Reactive Protein Total Protein Albumin Globulin Albumin/Globulin Ratio Lipase Procalcitonin TSH Urine Color Dark Yellow Urine Appearance Cloudy A Urine pH 5.5 Ur Specific [place] 1.028 Urine Protein 1+ H Urine Glucose (UA) Negative Urine Ketones 1+ H Urine Blood Negative Urine Nitrite Negative Urine Bilirubin Negative Urine Urobilinogen Negative Ur Leukocyte Esterase Negative Urine WBC (Auto) 1-5 Urine RBC (Auto) 0-4 U Hyaline Cast (Auto) 5-10 H U Epithel Cells (Auto) 20-30 H Urine Bacteria (Auto) Negative COVID-19 Eval Order SARS-CoV-2 (PCR) Hepatitis C Ab Screen 02/02/21 02/02/21 07:26 07:26 WBC RBC Hgb Hct MCV MCH MCHC RDW Std Deviation RDW Coeff of Taylor Plt Count MPV Immature Gran % (Auto) Neut % (Auto) Lymph % (Auto) [place] % (Auto) Eos % (Auto) Baso % (Auto) Neut # (Auto) Lymph # (Auto) [place] # (Auto) Eos # (Auto) Baso # (Auto) Immature Gran # (Auto) ESR Fibrinogen Sodium 135 L Potassium 3.2 L Chloride 103 Carbon Dioxide 24 Anion Gap 8.0 BUN 17 Creatinine 0.92 Est Cr Clr Drug Dosing 90.5 Est GFR ( Amer) 102.9 Est GFR (Non-Af Amer) 88.8 BUN/Creatinine Ratio 18.3 Glucose 108 H Lactate Calcium 7.9 L Magnesium 2.4 Ferritin Total Bilirubin AST ALT Alkaline Phosphatase Lactate Dehydrogenase Troponin I C-Reactive Protein Total Protein Albumin Globulin Albumin/Globulin Ratio Lipase Procalcitonin TSH Urine Color Urine Appearance Urine pH Ur Specific [place] Urine Protein Urine Glucose (UA) Urine Ketones Urine Blood Urine Nitrite Urine Bilirubin Urine Urobilinogen Ur Leukocyte Esterase Urine WBC (Auto) Urine RBC (Auto) U Hyaline Cast (Auto) U Epithel Cells (Auto) Urine Bacteria (Auto) COVID-19 Eval Order SARS-CoV-2 (PCR) Hepatitis C Ab Screen Neg Medications Administered Current Inpatient Medications Acetaminophen (Acetaminophen 500 Mg Tab) 1,000 mg PO Q8H PRN PRN Reason: Fever Stop: 03/03/21 23:10 Baclofen (Baclofen 10 Mg Tab) 10 mg PO Q6H PRN PRN Reason: Muscle Spasm Stop: 03/03/21 16:09 Diltiazem HCl (Diltiazem Hcl 180 Mg Capcr) 360 mg PO DAILY [facility] Stop: 03/04/21 08:59 Last Admin: 02/02/21 08:07 Dose: 360 mg Documented by: Enoxaparin Sodium (Enoxaparin Inj 40 Mg/0.4 Ml Syr) 40 mg SQ Q24H [facility] Stop: 03/03/21 20:59 Last Admin: 02/01/21 20:22 Dose: 40 mg Documented by: Fluticasone Propionate (Fluticasone Propionate Na Spr 16 Gm Btl) 2 sprays MILES QAM [facility] Stop: 03/04/21 08:59 Last Admin: 02/02/21 08:05 Dose: 2 sprays Documented by: HCTZ/Losartan Potassium (Losartan/Hctz 50/12.5mg Tab) 1 tab PO DAILY [facility] Stop: 03/04/21 08:59 Last Admin: 02/02/21 08:07 Dose: 1 tab Documented by: Promethazine HCl 12.5 mg/ (Sodium Chloride) 50.5 mls @ 202 mls/hr IV ONE PRN PRN Reason: Nausea - use zofran first Stop: 03/03/21 20:05 Ondansetron HCl (Ondansetron Inj 2 Mg/Ml 2 Ml Vial) 4 mg IV Q6H PRN PRN Reason: nausea/vomitting Stop: 03/03/21 16:44 Last Admin: 02/01/21 17:01 Dose: 4 mg Documented by: Pantoprazole Sodium (Pantoprazole 40 Mg Tab) 40 mg PO DAILY ANTONY Stop: 03/04/21 08:59 Last Admin: 02/02/21 08:07 Dose: 40 mg Documented by: Rosuvastatin Calcium (Rosuvastatin Calcium 20 Mg Tab) 20 mg PO DAILY [facility] Stop: 03/04/21 08:59 Last Admin: 02/02/21 08:07 Dose: 20 mg Documented by: PG Care Time/CCT Total # of Minutes Spent Total Time Spent with Patient: Total time spent is greater than 50% in coordination of care (as documented) at patient's floor/unit and/or counseling patient: Coding Level of Care Code 22003 Subseq Hosp Care Lvl 2 Diagnoses COVID-19 U07.1 Obstructive sleep apnea G47.33 Hypokalemia E87.6 Hypertension I10 Hypertension type: essential hypertension Hyperlipidemia E78.5 Gastroesophageal reflux disease K21.9 Hypomagnesemia E83.42 (1) Hypertension Hypertension type: essential hypertension Qualified Code(s): I10 - Essential (primary) hypertension
[2021-02-02] MEDS ORDERED: POTASSIUM CHLORIDE 40 MEQ in SODIUM CHLORIDE 0.9% 1000ML 1,000 ML IV SCH (12:15)
[2021-02-02] MEDS: ACETAMINOPHEN 500 MG TAB PO PRN ×2 (16:09→22:50)
[2021-02-02] MEDS: ENOXAPARIN INJ 40 MG/0.4 ML SYR SQ SCH (20:39)
[2021-02-03 07:08] LABS: Hematocrit (blood only) 39.4 % (42-52); Hemoglobin 13.6 g/dL (14.0-18.0); Mean Corpuscular Hemoglobin 29.6 pg (25-34); Mean Corpuscular Hgb Conc 34.5 g/dL (32-36); Mean Corpuscular Volume 85.8 fL (80-100); Mean Platelet Volume 11.4 fL (7.4-10.4); Platelet Count 147 K/uL (130-400); RDW Coefficient of Variation 14.2 % (11.5-14.5); RDW Standard Deviation 44.7 fL (36.4-46.3); Red Blood Count 4.59 M/uL (4.7-6.1); White Blood Count 16.35 K/uL (4.8-10.8)
[2021-02-03 07:32] LABS: Basophils # (auto) 0.01 K/uL (0-0.2); Basophils % (auto) 0.1 %; Eosinophils # (auto) 0.01 K/uL (0-0.5); Eosinophils % (auto) 0.1 %; Immature Granulocytes # (auto) 0.03 K/uL (0.00-0.02); Immature Granulocytes % (auto) 0.2 %; Lymphocytes # (auto) 2.51 K/uL (1.2-3.4); Lymphocytes % (auto) 15.4 %; Monocytes # (auto) 0.74 K/uL (0.11-0.59); Monocytes % (auto) 4.5 %; Neutrophils # (auto) 13.05 K/uL (1.4-6.5); Neutrophils % (auto) 79.7 %
[2021-02-03 07:46] LABS: BUN Creatinine Ratio 24.2 (10-20); Calcium 7.4 mg/dl (8.5-10.1); Est GFR (African American) 79.4 ml/min; Est GFR (Non-African American) 68.5 ml/min; Magnesium 2.2 mg/dl (1.8-2.4); Potassium 3.7 mmol/L (3.5-5.1)
[2021-02-03] MEDS: dexAMETHasone 1 MG TAB PO SCH (08:43)
[2021-02-03] MEDS: FLUTICASONE PROPIONATE NA SPR 16 GM BTL NAE SCH (08:44)
[2021-02-03] MEDS: LOSARTAN/HCTZ 50/12.5MG TAB PO SCH (08:44)
[2021-02-03] MEDS: dilTIAZem HCL 180 MG CAPCR PO SCH (08:44)
[2021-02-03] MEDS: PANTOprazole 40 MG TAB PO SCH (08:44)
[2021-02-03] MEDS: ROSUVASTATIN CALCIUM 20 MG TAB PO SCH (08:45)
--- NOTE | 2021-02-03 10:48 | Hospitalist Progress Note ---
Date of Service February 03, 2021 Assessment & Plan (1) COVID-19: Plan: COVID + with vaccine - not hypoxic, no respiratory distress, has a cough, will give Codeine q6 PRN - saturations 90% today, since he is < 94% will give dexamethasone 6mg PO daily was dehydrated, gave one liter of NSS + 40mEq of KCl yesterday, he is drinking better now (2) Obstructive sleep apnea: Plan: not on therapy at home (3) Hypokalemia: Plan: up to 3.7 from 2.9 on admission no further KCl given (4) Hypertension: Plan: Continue ARB BP stable (5) Hyperlipidemia: Plan: Continue statin (6) Gastroesophageal reflux disease: Plan: Cotninue pantoprazole 40 mg daily (7) Hypomagnesemia: Plan: Replete magnesium for total 4 gm with continued N/v/diarrhea - K is 2.2 Admission and Anticipated Discharge Date Admission Date: February 02, 2021 Subjective patient says he is feeling better today, eating better, drinking better, no fever today cough is better with Codeine saturations < 94% this morning at 90%, will give dexamethasone, he agrees labs reviewed, K 3.7, Cr 1.14, BUN 28, Mag 2.2, WBC 16k, Hb 13.6 discussed that if he remains stable today, no oxygen needs then we can get him home tomorrow, he agrees with plan Review of Systems Review of Systems: All systems reviewed & are unremarkable except as noted in Subjective Constitutional: no fever Respiratory: + cough and + dyspnea on exertion; no dyspnea Cardiovascular: no chest pain and no edema Gastrointestinal: no abdominal pain, no nausea, no vomiting, no constipation and no diarrhea/loose stools Physical Exam Constitutional: well developed, well nourished and + ill appearing; no acute distress and + uncomfortable Neck: trachea midline, no thyromegaly Respiratory: normal respiratory effort, lungs clear to auscultation Cardiovascular: RRR, no murmur, no edema Gastrointestinal (Abdomen): normal bowel sounds, soft, nontender, no hepatosplenomegaly Musculoskeletal: Head/Neck/Chest: normocephalic, head atraumatic and neck supple Extremities: + abnormal strength; + extremities abnormal to inspection (upper extremities short, rotated, muscle atrophy), no cyanosis, no clubbing and no petechiae Skin: no rashes, warm and dry Neurologic: normal touch/pain/proprioception, CN's II-XI intact bilaterally, moves all extremities and awake; no focal motor deficits Psychiatric: A+Ox3, euthymic affect Results & Data Results & Data ([facility]) Vital Signs (Past 12 Hours) Vital Signs Temp Pulse Resp BP Pulse Ox 02/03/21 07:13 37.5 C 96 H 22 109/80 90 02/02/21 22:55 135/85 Laboratory Results Laboratory Results - last 24 hr 02/03/21 02/03/21 06:38 06:38 WBC 16.35 H RBC 4.59 L Hgb 13.6 L Hct 39.4 L MCV 85.8 MCH 29.6 MCHC 34.5 RDW Std Deviation 44.7 RDW Coeff of Taylor 14.2 Plt Count 147 MPV 11.4 H Immature Gran % (Auto) 0.2 Neut % (Auto) 79.7 Lymph % (Auto) 15.4 Edgar % (Auto) 4.5 Eos % (Auto) 0.1 Baso % (Auto) 0.1 Neut # (Auto) 13.05 H Lymph # (Auto) 2.51 Edgar # (Auto) 0.74 H Eos # (Auto) 0.01 Baso # (Auto) 0.01 Immature Gran # (Auto) 0.03 H Sodium 134 L Potassium 3.7 D Chloride 103 Carbon Dioxide 23 Anion Gap 8.0 BUN 28 H D Creatinine 1.14 Est Cr Clr Drug Dosing 73.0 Est GFR ( Amer) 79.4 Est GFR (Non-Af Amer) 68.5 BUN/Creatinine Ratio 24.2 H Glucose 96 Calcium 7.4 L Magnesium 2.2 Medications Administered Current Inpatient Medications Acetaminophen (Acetaminophen 500 Mg Tab) 1,000 mg PO Q8H PRN PRN Reason: Fever Stop: 03/03/21 23:10 Last Admin: 02/02/21 22:50 Dose: 1,000 mg Documented by: Baclofen (Baclofen 10 Mg Tab) 10 mg PO Q6H PRN PRN Reason: Muscle Spasm Stop: 03/03/21 16:09 Dexamethasone (Dexamethasone 1 Mg Tab) 6 mg PO DAILY ANTONY Stop: 03/05/21 08:59 Last Admin: 02/03/21 08:43 Dose: 6 mg Documented by: Diltiazem HCl (Diltiazem Hcl 180 Mg Capcr) 360 mg PO DAILY [facility] Stop: 03/04/21 08:59 Last Admin: 02/03/21 08:44 Dose: 360 mg Documented by: Enoxaparin Sodium (Enoxaparin Inj 40 Mg/0.4 Ml Syr) 40 mg SQ Q24H [facility] Stop: 03/03/21 20:59 Last Admin: 02/02/21 20:39 Dose: 40 mg Documented by: Fluticasone Propionate (Fluticasone Propionate Na Spr 16 Gm Btl) 2 sprays MILES QAM [facility] Stop: 03/04/21 08:59 Last Admin: 02/03/21 08:44 Dose: 2 sprays Documented by: Guaifenesin/Codeine Phosphate (Guaifenesin/Codeine 200mg/20mg 10ml Udc) 10 ml PO Q6H PRN PRN Reason: Cough Stop: 03/04/21 14:41 Last Admin: 02/03/21 08:43 Dose: 10 ml Documented by: HCTZ/Losartan Potassium (Losartan/Hctz 50/12.5mg Tab) 1 tab PO DAILY [facility] Stop: 03/04/21 08:59 Last Admin: 02/03/21 08:44 Dose: 1 tab Documented by: Promethazine HCl 12.5 mg/ (Sodium Chloride) 50.5 mls @ 202 mls/hr IV ONE PRN PRN Reason: Nausea - use zofran first Stop: 03/03/21 20:05 Ondansetron HCl (Ondansetron Inj 2 Mg/Ml 2 Ml Vial) 4 mg IV Q6H PRN PRN Reason: nausea/vomitting Stop: 03/03/21 16:44 Last Admin: 02/01/21 17:01 Dose: 4 mg Documented by: Pantoprazole Sodium (Pantoprazole 40 Mg Tab) 40 mg PO DAILY [facility] Stop: 03/04/21 08:59 Last Admin: 02/03/21 08:44 Dose: 40 mg Documented by: Rosuvastatin Calcium (Rosuvastatin Calcium 20 Mg Tab) 20 mg PO DAILY [facility] Stop: 03/04/21 08:59 Last Admin: 02/03/21 08:45 Dose: 20 mg Documented by: PG Care Time/CCT Total # of Minutes Spent Total Time Spent with Patient: Total time spent is greater than 50% in coordinat ion of care (as documented) at patient's floor/unit and/or counseling patient: Coding Level of Care Code 21302 Subseq Hosp Care Lvl 2 Diagnoses COVID-19 U07.1 Obstructive sleep apnea G47.33 Hypokalemia E87.6 Hypertension I10 Hypertension type: essential hypertension Hyperlipidemia E78.5 Gastroesophageal reflux disease K21.9 Hypomagnesemia E83.42 (1) Hypertension Hypertension type: essential hypertension Qualified Code(s): I10 - Essential (primary) hypertension
[2021-02-03] MEDS: ENOXAPARIN INJ 40 MG/0.4 ML SYR SQ SCH (20:05)
[2021-02-04 08:32] LABS: Hematocrit (blood only) 40.9 % (42-52); Hemoglobin 14.3 g/dL (14.0-18.0); Immature Granulocytes # (auto) 0.03 K/uL (0.00-0.02); Immature Granulocytes % (auto) 0.2 %; Lymphocytes % (auto) 16.6 %; Mean Corpuscular Hemoglobin 29.3 pg (25-34); Mean Corpuscular Volume 83.8 fL (80-100); Mean Platelet Volume 12.2 fL (7.4-10.4); Monocytes # (auto) 0.53 K/uL (0.11-0.59); Monocytes % (auto) 4.4 %; Neutrophils % (auto) 78.8 %; Platelet Count 187 K/uL (130-400); RDW Coefficient of Variation 13.7 % (11.5-14.5); Red Blood Count 4.88 M/uL (4.7-6.1); White Blood Count 12.06 K/uL (4.8-10.8)
[2021-02-04] MEDS: FLUTICASONE PROPIONATE NA SPR 16 GM BTL NAE SCH (08:36)
[2021-02-04] MEDS: PANTOprazole 40 MG TAB PO SCH (08:36)
[2021-02-04] MEDS: ROSUVASTATIN CALCIUM 20 MG TAB PO SCH (08:36)
[2021-02-04] MEDS: dexAMETHasone 1 MG TAB PO SCH (08:36)
[2021-02-04] MEDS: dilTIAZem HCL 180 MG CAPCR PO SCH (08:36)
[2021-02-04] MEDS: LOSARTAN/HCTZ 50/12.5MG TAB PO SCH (08:36)
[2021-02-04 08:55] LABS: BUN Creatinine Ratio 33.1 (10-20); Calcium 8.1 mg/dl (8.5-10.1); Est GFR (Non-African American) 95.7 ml/min; Magnesium 2.3 mg/dl (1.8-2.4); Potassium 3.6 mmol/L (3.5-5.1)
--- NOTE | 2021-02-04 12:15 | Discharge Summary ---
Date of Service February 04, 2021 Admission HPI Per Admitting Provider 60 YOM with past medical history of: Arthrogyposis, tubular adenoma of the colon, HTN, HLD, GERD. Patient comes into the ED today via EMS secondary to 3 day history of Fevers, loss of appetite, n/v, diarrhea. Subsequently found to have COVID 19 pneumonia, although he is vaccinated. Patient is not hypoxic at this time, but is having difficulty eating, drinking as well as "keeping anything he does take in down". Patient does have skilled help that takes care of him on daily basis until the evening. He states that none of them are feeling ill. He states that he has not gone out or gone anywhere and he lives at home by himself. Patient will be observed overnight for electrolyte replacement. physician relations manager consult for evaluation of continuing his home care needs in light of COVID 19 infection. Patient is a DNR/DNI COVID status as above Principal Diagnosis COVID 19 infection Dehydration, hypokalemia Discharge Exam Constitutional well developed and well nourished; no acute distress and + uncomfortable Neck trachea midline, no thyromegaly Respiratory normal respiratory effort, lungs clear to auscultation Cardiovascular RRR, no murmur, no edema Gastrointestinal (Abdomen) normal bowel sounds, soft, nontender, no hepatosplenomegaly Musculoskeletal Head/Neck/Chest: normocephalic, head atraumatic and neck supple Extremities: + abnormal strength; + extremities abnormal to inspection (upper extremities short, rotated, muscle atrophy), no cyanosis, no clubbing and no petechiae Skin no rashes, warm and dry Neurologic normal touch/pain/proprioception, CN's II-XI intact bilaterally, moves all extremities and awake; no focal motor deficits Psychiatric A+Ox3, euthymic affect Discharge Data Allergies Allergy/AdvReac Type Severity Reaction Status Date / Time No Known Drug Allergies Allergy Unknown NONE Verified 02/01/21 11:51 pollen extracts Allergy Unknown UNK Verified 02/01/21 11:51 Consultations 02/01/21 15:12 ED Decision to Admit Stat Hospital Course (1) COVID-19: COVID + with vaccine - not hypoxic, no respiratory distress, has a cough, will give Codeine q6 PRN -- working well, will provide script to use at home - saturations 90% on 02/03, since he is < 94% will give dexamethasone 6mg PO daily saturations 91% today, no distress, feeling much better, he feels like the vaccine prevented him from having severe reaction, I agree with him discharge on dexamethasone 6mg PO daily x 8 more days was dehydrated on admission, gave one liter of NSS + 40mEq of KCl 02/02, he is drinking better now the past two days, well hydrated, feeling well (2) Obstructive sleep apnea: not on therapy at home (3) Hypokalemia: resolved with IV replacement (4) Hypertension: Continue ARB BP stable (5) Hyperlipidemia: Continue statin (6) Gastroesophageal reflux disease: Cotninue pantoprazole 40 mg daily (7) Hypomagnesemia: resolved with IV replacement Total Time Total Time Spent Total Time Spent (In Minutes): 31 Total Time Includes: Examination of the Patient, Discharge Planning and Medication Reconciliation Discharge Plan Discharge Items Patient Disposition: Home - Home Health Services Reason For Visit: ILLNESS Discharge Diagnosis: COVID 19 infection Dehydration Hypokalemia Condition on Discharge: Good Activity: Resume your previous activity Non-emergency contact: Primary Care Provider Call non-emergency contact if: you have any medication questions and your symptoms worsen Follow-up/Referrals: Lizandro Mandujano MD [Primary Care Provider] - (Dr. Mandujano is unavailable.) Alesia Sepulveda CRNP [Nurse Practitioner] - 02/11/21 10:30 am (Dr. Mandujano is unavailable. Please follow up with KENIA Loza on Tuesday02/11/21 at 10:30 am. Please arrive to the office at 10:15 am for your appointment. If you are unable to keep this appointment, please call the office to reschedule at [phone].) Diet: Regular Addtl Attending Provider Instructions: Medications: - DEXAMETHASONE: 6mg daily for 8 more days - CODEINE: 10mL every 6 hours as needed for cough COVID 19 infection, weakness, dehydration, low potassium treated initially with IV fluids, stopped once appetite improved renal function is stable, potassium now normal started on dexamethasone since oxygen saturation was below 94%, but you are not truly hypoxic complete 8 more days of dexamethasone use the Codeine as needed for cough you can take Tylenol 650mg every 6 hours as needed for aches/pains or fever/chills continue to stay well hydrated, well nourished, get rest Pending Studies at Discharge: No Stand-Alone Forms: My [facility], Smoking Cessation Medications and DC Order Prescriptions: New dexamethasone 4 mg tablet 6 mg PO DAILY 8 Days Qty: 12 RF: 0 codeine-guaifenesin 10-100 mg/5 mL Liquid 10 ml PO Q6H PRN (Reason: cough) Qty: 237 RF: 0 Continued (DME) miscellaneous medical supply misc See Dose Instructions .ROUTE .MEDSUPPLY Qty: 1 RF: 0 (DME) Power Wheelchair Device See Dose Instructions .ROUTE .MEDSUPPLY Qty: 1 RF: 0 baclofen 10 mg tablet 10 mg PO Q6H PRN (Reason: Muscle Spasm) Qty: 50 RF: 0 losartan-hydrochlorothiazide 100-25 mg tablet 1 tab PO DAILY Qty: 90 RF: 3 pantoprazole [Protonix] 40 mg tablet,delayed release (DR/EC) 40 mg PO DAILY Qty: 90 RF: 3 rosuvastatin [Crestor] 20 mg tablet 20 mg PO DAILY Qty: 90 RF: 3 fluticasone propionate [Flonase Allergy Relief] 50 mcg/actuation spray,suspension 2 spray INTNAS QAM Qty: 54.6 RF: 3 diltiazem HCl 360 mg tablet extended release 24 hr 360 mg PO DAILY Qty: 90 RF: 3 Powered Wheelchair Misc See Rx Instructions .ROUTE .1 Qty: 1 RF: 0 Discharge Orders: Discharge Order (Routine); Ordered 02/04/21 Ordered By: Jered Hdez Admission Data Admit Date/Time: 02/02/21 12:15 Attending Provider: Jered Hdez Admit Provider: Mehnaz Rajan Primary Care Provider: Lizandro Mandujano Other Providers: Sohail Arreguin Other Interventions: Discharge Summary Assessment (RN) Last Done: 02/04/21 12:19 Coding Level of Care Code D/C DAY MANAGEMENT >30 MINS Diagnoses COVID-19 U07.1 Obstructive sleep apnea G47.33 Hypokalemia E87.6 Hypertension I10 Hypertension type: essential hypertension Hyperlipidemia E78.5 Gastroesophageal reflux disease K21.9 Hypomagnesemia E83.42
--- NOTE | 2021-02-15 14:15 | Coding Query ---
CODING QUERY To promote full compliance with coding requirements relating to patient care, provider participation is requested in all cases of business process associate uncertainty. Please assist us with the question(s) below: Coding Question(s): Hypokalemia, Dehydration and Hypomagnesemia are documented in the record as well as Covid-19. Please specify below, in your clinical opinion. (x ) Hypokalemia, Dehydration and Hypomagnesemia are manifestations of Covid-19 ( ) Hypokalemia, Dehydration and Hypomagnesemia are Not manifestations of Covid-19 ( ) Other: Please Specify Physician's Response(s): Thank you Martha Mclean Principal Diagnosis: "that condition established after study, to be chiefly responsible for occasioning the admission of the patient to the hospital for care." Co-Existing Principal Diagnosis: "when two or more diagnoses equally meet the criteria for principal diagnosis as determined by the circumstances of admission, diagnostic work up, and/or therapy provided, and the Alphabetic Index, Tabular List, or another coding guideline does not provide sequencing direction, any one of the diagnoses may be sequenced first." "When the physician has documented what appears to be a current diagnosis in the body of the record, but has not included the diagnosis in the final diagnostic statement, the physician should be asked whether the diagnosis should be added." (Source [facility]oding [facility] 2 QTR90. p3-4) SOLO
--- NOTE | 2021-02-15 14:21 | Coding Query ---
CODING QUERY To promote full compliance with coding requirements relating to patient care, provider participation is requested in all cases of chemical engineering teacher uncertainty. Please assist us with the question(s) below: Coding Question(s): There is documentation of Diarrhea and documentation of Covid-19. Please specify below, in your clinical opinion. (x ) Diarrhea is due to Covid-19 ( ) Diarrhea is Not due to Covid-19 ( ) Other: Please Specify Physician's Response(s): Thank you Martha Mclean Principal Diagnosis: "that condition established after study, to be chiefly responsible for occasioning the admission of the patient to the hospital for care." Co-Existing Principal Diagnosis: "when two or more diagnoses equally meet the criteria for principal diagnosis as determined by the circumstances of admission, diagnostic work up, and/or therapy provided, and the Alphabetic Index, Tabular List, or another coding guideline does not provide sequencing direction, any one of the diagnoses may be sequenced first." "When the physician has documented what appears to be a current diagnosis in the body of the record, but has not included the diagnosis in the final diagnostic statement, the physician should be asked whether the diagnosis should be added." (Source Coding Clinic 2 QTR90. p3-4) SOLO
== END 2021-02-04 16:30 | disposition home health service (06) | DRG 178 ==
LOC: 2S 11:48 → ED 11:48 → SUATTDRO 15:15 → 2S 15:50

== ENCOUNTER 2023-11-08 15:07 | Inpatient (IN) ==
[2023-11-08 16:11] LABS: Basophils # (auto) 0.04 K/uL (0.00-0.20); Basophils % (auto) 0.3 %; Eosinophils # (auto) 0.06 K/uL (0.00-0.50); Eosinophils % (auto) 0.4 %; Hematocrit (blood only) 50.3 % (42.0-52.0); Hemoglobin 17.2 g/dl (14.0-18.0); Immature Granulocytes # (auto) 0.22 K/uL (0.01-0.20); Immature Granulocytes % (auto) 1.5 %; Lymphocytes # (auto) 3.39 K/uL (1.20-3.40); Lymphocytes % (auto) 22.8 %; Mean Corpuscular Hemoglobin 29.7 pg (25.0-34.0); Mean Corpuscular Hgb Conc 34.2 g/dL (32.0-36.0); Mean Corpuscular Volume 86.7 fL (80.0-100.0); Mean Platelet Volume 11.8 fL (9.4-12.4); Monocytes # (auto) 1.14 K/uL (0.11-0.59); Monocytes % (auto) 7.7 %; Neutrophils # (auto) 9.99 K/uL (1.40-6.50); Neutrophils % (auto) 67.3 %; Platelet Count 281 K/uL (130-400); RDW Coefficient of Variation 13.1 % (11.5-14.5); RDW Standard Deviation 41.1 fL (36.4-46.3); White Blood Count 14.84 K/ul (4.8-10.8)
--- NOTE | 2023-11-08 16:12 | XRay Report ---
SINGLE VIEW CHEST CLINICAL HISTORY: Atypical chest pain. FINDINGS: 2 AP, portable, upright chest radiographs are compared to study dated 02/01/2021. The patien t's right arm partially obscures the lower chest. The heart is enlarged. The pulmonary vasculature is noncontrast. Chronic interstitial thickening similar to previous. The lungs and pleural spaces are c lear. No pneumothorax is seen. The skeletal structures are osteopenic. Chronic deformity and postsurg ical changes noted in the right shoulder. Arthritic change is also seen in the left shoulder. Degener ative change is noted in the spine. IMPRESSION: Cardiomegaly with no active disease in the chest. ACT 112: Negative or not required by law. Electronically signed by: Naeem North M.D. 11/08/2023 4:10 PM
--- NOTE | 2023-11-08 16:19 | Emergency Department Note ---
Impression & Plan Elevated troponin ADMIT ED Provider Note HPI: History obtained from patient. The patient is a 62-year-old gentleman with history of congenital arthrogryposis, presents the emergency department with a chief complaint of a fall this morning. Patient states that he slipped from his wheelchair this morning and sustained an abrasion to the anterior aspect of his left lower extremity. Patient states that he called EMS at the time and otherwise felt well therefore did not get transported to the ED. Patient was assessed by the physician through his living facility later in the day and was noted to be tachycardic in the 120s and therefore was referred to the ED for further assessment. Patient denies any chest pain or shortness of breath, states he did have some nausea earlier today. Patient denies any history of significant cardiac issues but does have history of hyperlipidemia and hypertension as well as NIK. On arrival here to the ED the patient is mildly tachycardic but otherwise hemodynamically stable, he otherwise appears to be in no acute distress. ROS: - Per HPI Differential Diagnosis: Lower extremity cellulitis/wound infection, sepsis, tachyarrhythmia to include SVT, atrial fibrillation with RVR, WPW, ventricular tachycardia, ACS, amongst other potential pathologies. *Outpatient medications and allergy history reviewed. 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 with blanchable erythema at the dorsal aspect of the foot, there is 2+ edema of the left lower extremity surrounding multiple abrasions to the anterior left mckinnon Skin: There is a wound to the anterior aspect of the left mckinnon with several abrasions with surrounding erythema and some edema, there is no crepitus to palpation Neuro: Alert, baseline chronic contractures of all 4 extremities Psychiatric: Cooperative INDEPENDENT INTERPRETATIONS: monitoring analyst: (As interpreted by myself): - An order was placed for continuous cardiac monitoring - Patient was noted to be in sinus rhythm with a rate of 111 EKG: (As interpreted by myself): Rate: 113 Rhythm: Sinus tachycardia Intervals: Within normal limits ST changes: No ST elevation Time: 1515 Chest x-ray: (As interpreted by myself): No acute disease Interventions provided in ED: -IV fluid bolus, IV cefepime Medical Decision Making: IV was established and lab work obtained, patient was placed on environmental monitoring specialist. Lab work shows a leukocytosis of 14.84, hemoglobin is normal, platelet count is normal, CMP does not show any critical findings, no evidence of acute kidney injury. High-sensitivity troponin level is elevated at 112.5, EKG per my interpretation shows sinus rhythm without any acute ischemic changes. Patient denies any chest pain or shortness of breath but states he did have some nausea earlier today. In addition, physical exam findings are concerning for wound cellulitis of the left lower extremity. This was dressed in bacitracin. Blood cultures were ordered. Patient was ordered a dose of IV cefepime over concern for left lower extremity cellulitis. On my reassessment the patient remains tachycardic but he is resting comfortably in bed. I discussed inpatient versus outpatient options with the patient and at this time he would prefer inpatient which I think is reasonable given his elevated troponin and concern for tachycardia earlier today. I discussed the patient's presentation with the on-call hospitalist, Dr. Rothman, the patient was accepted for inpatient care. Consultants/Discussions held with other healthcare providers: -Hospitalist, Dr. Rothman Disposition discussion held by myself with: -Patient and core laying machine operator at bedside Diagnosis: 1. Elevated troponin, acute 2. Tachycardia, acute, sinus 3. Left lower extremity cellulitis, acute 4. Leukocytosis, acute Disposition: Admission Reno Mcnamara DO Emergency Medicine Past Med/Surg History Problem List (Updated 11/08/23 @ 19:59 by Reno Mcnamara DO) Elevated troponin (Acute) Tachycardia (Acute) Arthrogryposis (Acute) Elevated PSA Peripheral edema Dependent edema Cerumen impaction Allergic rhinitis (Acute) Dysphagia (Acute) Erectile dysfunction (Acute) Gastroesophageal reflux disease (Acute) Hyperlipidemia (Acute) Hypertension (Acute) Obstructive sleep apnea (Acute) no device Tubular adenoma of colon (Acute) Medical History Allergic rhinitis Chronic back pain 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 Dysphagia Erectile dysfunction Gastroesophageal reflux disease History of COVID-19 hx of 02/01/21--severe, had to be hospitalized on oxygen--resolved Hyperlipidemia Hypertension Obstructive sleep apnea no device Sleep disturbances Tubular adenoma of colon Weakness Wheelchair bound pt states he can transfer himself from wheelchair to bed Surgical History History of anesthesia reaction during elbow surgery as a child roughly around age 5 or 6, pt had too much anesthesia and was in coma for a couple days--has had surgery since without any issues History of colonoscopy History of elbow surgery right d/t congenital arthrogryposis History of foot surgery multiple on bilateral feet d/t congenital arthrogryposis History of open reduction and internal fixation (ORIF) procedure left patella fx--no hardware History of shoulder surgery right d/t congenital arthrogryposis History of surgery on right wrist d/t congenital arthrogryposis History of tooth extraction Family History Mother Aneurysm of abdominal aorta Lung disease Father Myocardial infarction Hx of CABG Brother Hypertension Sister Hypertension Other No family history of adverse response to anesthesia Denies family history of Ovarian cancer Prostate cancer Breast cancer Colorectal cancer Social History Smoking Status: Never smoker Second Hand Exposure: No; Do You Dip or Chew Tobacco: No; Hx Alcohol Use: Yes Alcohol type: wine Alcohol Intake Frequency: Monthly or Less Preferred Language: Slovenian Communication Ability: Effective Visual Impairment: No Limitations Hearing Ability: Normal Senior Technical Support Analyst Required: No Beliefs That Will Affect Care: None marital status: Current Living Situation: Alone Current Living Situation Comment: has caregivers come in and help him *Tuesday- Tuesday for 8 hours current occupational status: disabled How many Children do You have: 2 Feels Safe at Home: Yes Safety Concerns Comment: Patient has in home caregivers to assist him Childhood Exposure to Second-Hand Smoke: Yes Diet: regular caffeine: No Dental Care, Regularly: No Physical Activity Frequency: Does not Exercise Seatbelt Use: always Sunscreen Use: Yes Assistive Devices: Wheelchair Allergies Allergies Allergy/AdvReac Type Severity Reaction Status Date / Time pollen extracts Allergy Mild sneezing, Verified 11/08/23 16:25 watery eye Home Meds Home Medications Medication Instructions Recorded Confirmed calcium carbonate (Tums) 300 mg PO TID 11/08/23 11/08/23 olopatadine 0.1 % eye drops 1 drp OPB QAM 11/08/23 11/08/23 Previous Rx's Medication Instructions Recorded miscellaneous medical supply #1 ea 03/13/19 Wheelchair (Powered) (Power #1 ea 03/29/19 Wheelchair) Hospital Bed Homecare (Hospital #1 ea 04/21/21 Bed) hospital bed mattress #1 ea 08/20/22 fluticasone propionate 50 2 spray intranasal QAM #54.6 mL 05/18/23 mcg/actuation nasal spray,suspension (Flonase Allergy Relief) losartan 100 mg tablet 100 mg PO QAM #90 tabs 06/13/23 furosemide 20 mg tablet 20 mg PO QAM #30 tabs 07/18/23 diltiazem HCl 360 mg 360 mg PO QAM #90 tabs 07/25/23 tablet,extended release 24 hr potassium chloride 20 mEq 20 meq PO QAM #90 tabs 09/12/23 tablet,extended release loratadine 10 mg tablet 10 mg PO DAILY #90 tabs 10/12/23 Powered Wheelchair See Rx Instructions .Route ONCE #1 10/21/23 ea Results & Data (ED) Vital Signs Vital Signs - 24 hr 11/08/23 15:07 11/08/23 15:25 11/08/23 15:25 Temperature 36.7 C Temperature Source Temporal Artery Scan Pulse Rate 102 H Pulse Rate [Apical] 108 H Pulse Rhythm Respiratory Rate 18 18 Respiratory Effort / Characteristics Non-Labored Spontaneous Non-Labored Spontaneous Respiratory Depth Normal Normal Blood Pressure 178/123 H Blood Pressure [Left Arm] 165/109 H Blood Pressure Mean 141 Blood Pressure Mean [Left Arm] 127 Blood Pressure Position Sitting Pulse Oximetry 96 94 96 Oxygen Delivery Method Room Air Room Air Room Air Sepsis Recent Fever Within 48 Hours No Sepsis New/Unexplained Change in Mental Status No Sepsis Action Taken by Nursing No Action Required 11/08/23 15:25 11/08/23 15:35 11/08/23 15:51 Temperature Temperature Source Pulse Rate 104 H 103 H Pulse Rate [Apical] 100 H Pulse Rhythm Regular Respiratory Rate 18 17 Respiratory Effort / Characteristics Respiratory Depth Blood Pressure Blood Pressure [Left Arm] 165/109 H Blood Pressure Mean Blood Pressure Mean [Left Arm] 127 Blood Pressure Position Pulse Oximetry 94 96 Oxygen Delivery Method Room Air Room Air Sepsis Recent Fever Within 48 Hours Sepsis New/Unexplained Change in Mental Status Sepsis Action Taken by Nursing 11/08/23 17:02 11/08/23 19:40 Temperature Temperature Source Pulse Rate 91 H Pulse Rate [Apical] 101 H Pulse Rhythm Respiratory Rate 24 Respiratory Effort / Characteristics Respiratory Depth Blood Pressure Blood Pressure [Left Arm] 135/89 Blood Pressure Mean Blood Pressure Mean [Left Arm] 104 Blood Pressure Position Pulse Oximetry Oxygen Delivery Method Sepsis Recent Fever Within 48 Hours Sepsis New/Unexplained Change in Mental Status Sepsis Action Taken by Nursing Laboratory Data 11/08/23 14:16 11/08/23 14:16 Lab Results 11/08/23 11/08/23 11/08/23 Range/Units 14:16 16:56 16:57 WBC 14.84 H (4.8-10.8) K/ul RBC 5.80 (4.70-6.10) M/uL Hgb 17.2 (14.0-18.0) g/dl Hct 50.3 (42.0-52.0) % MCV 86.7 (80.0-100.0) fL MCH 29.7 (25.0-34.0) pg MCHC 34.2 (32.0-36.0) g/dL RDW Std Deviation 41.1 (36.4-46.3) fL RDW Coeff of Taylor 13.1 (11.5-14.5) % Plt Count 281 (130-400) K/uL MPV 11.8 (9.4-12.4) fL Immature Gran % (Auto) 1.5 % Neut % (Auto) 67.3 % Lymph % (Auto) 22.8 % [place] % (Auto) 7.7 % Eos % (Auto) 0.4 % Baso % (Auto) 0.3 % Neut # (Auto) 9.99 H (1.40-6.50) K/uL Lymph # (Auto) 3.39 (1.20-3.40) K/uL [place] # (Auto) 1.14 H (0.11-0.59) K/uL Eos # (Auto) 0.06 (0.00-0.50) K/uL Baso # (Auto) 0.04 (0.00-0.20) K/uL Immature Gran # (Auto) 0.22 H (0.01-0.20) K/uL PT Cancelled 10.9 INR Cancelled 1.0 APTT Cancelled 24 PTT Ratio Cancelled 0.9 Sodium 139 (136-145) mmol/L Potassium 3.8 (3.5-5.1) mmol/L Chloride 103 (98-107) mmol/L Carbon Dioxide 23 (21-32) mmol/L Anion Gap 13 H (3-11) BUN 14 (6-23) mg/dl Creatinine 0.91 (0.6-1.4) mg/dl Est Cr Clr Drug Dosing 90.4 ml/min Est GFR ( Amer) 102.9 ml/min Est GFR (Non-Af Amer) 88.8 ml/min BUN/Creatinine Ratio 15.4 (10-20) Glucose 132 H (70-99(Fasting)) mg/dl Calcium 9.3 (8.6-10.3) mg/dl Magnesium 2.0 (1.7-2.4) mg/dl Total Bilirubin 0.5 (0.2-1.0) mg/dl AST 26 (13-39) U/L ALT 35 (7-52) U/L Alkaline Phosphatase 93 (34-104) U/L Total Creatine Kinase 284 H (30-223) U/L Troponin I High Sens 112.5 H* 139.2 H* D (0-20) pg/ml C-Reactive Protein < 0.50 (0-0.5) mg/dl Total Protein 8.4 H (6.0-8.3) gm/dl Albumin 4.9 (3.4-5.0) gm/dl Globulin 3.5 (2.5-4.0) gm/dl Albumin/Globulin Ratio 1.4 (0.9-2) Procalcitonin 0.06 (0-0.5) ng/ml Administered Medications Discontinued Medications Aspirin (Aspirin Chew 324 Mg) 324 mg PO NOW STA Stop: 11/08/23 17:31 Last Admin: 11/08/23 17:33 Dose: 324 mg Documented By: IRENE Bacitracin/Polymyxin B Sulfate (Bacitracin/Polymyxin B Sulfate 90 Appln/28.4 Gm Tube) 1 appln EXT NOW ONE Stop: 11/08/23 16:19 Last Admin: 11/08/23 17:20 Dose: 1 appln Documented By: IRENE Sodium Chloride (Nss) 500 mls @ 999 mls/hr IV .Q31M ONE Stop: 11/08/23 16:48 Last Infusion: 11/08/23 18:05 Dose: Infused Documented By: Admin: 11/08/23 17:01 Dose: 999 mls/hr Documented By: IRENE Cefepime HCl 1,000 mg/ Syringe 10 mls @ 5 mls/min IV NOW STA; Protocol Stop: 11/08/23 17:32 Last Admin: 11/08/23 19:16 Dose: 5 mls/min Documented By: IRENE Nitroglycerin (Nitroglycerin Sl 0.4 Mg/Tab Tab) 0.4 mg SL NOW STA Stop: 11/08/23 18:41 Last Admin: 11/08/23 18:49 Dose: 0.4 mg Documented By: IRENE Imaging Data Radiologist's Impression: Chest X-Ray 11/08/23 15:11 SINGLE VIEW CHEST CLINICAL HISTORY: Atypical chest pain. FINDINGS: 2 AP, portable, upright chest radiographs are compared to study dated 02/01/2021. The patient's right arm partially obscures the lower chest. The heart is enlarged. The pulmonary vasculature is noncontrast. Chronic interstitial thickening similar to previous. The lungs and pleural spaces are clear. No pneumothorax is seen. The skeletal structures are osteopenic. Chronic deformity and postsurgical changes noted in the right shoulder. Arthritic change is also seen in the left shoulder. Degenerative change is noted in the spine. IMPRESSION: Cardiomegaly with no active disease in the chest. ACT 112: Negative or not required by law. Electronically signed by: Naeem North M.D. 11/08/2023 4:10 PM Tibia/Fibula X-Ray 11/08/23 16:18 XR tibia fibula LT 2V CLINICAL HISTORY: injury to L mckinnon COMPARISON STUDY: None. FINDINGS: Diffuse soft tissue swelling/edema within the left lower leg. No acute fracture or dislocation within the left tibia or fibula. No radiopaque foreign bodies. The bones demonstrate a gracile appearance which is likely chronic. There is chronic deformity at the tibiotalar joint. IMPRESSION: 1. No acute fracture or dislocation within the left lower leg. 2. Diffuse soft tissue swelling/edema. ACT 112: Negative or not required by law. Electronically signed by: Favian Gudino M.D. 11/08/2023 5:13 PM Discharge Plan Visit Data Chief Complaint: Tachycardia Stated Complaint: ELEVATED HEART RATE ED Provider: Reno Mcnamara Discharge Problem: Elevated troponin Forms Stand Alone Forms: [facility] [employer] Prescriptions Prescriptions: No Action (DME) miscellaneous medical supply misc See Dose Instructions .ROUTE .MEDSUPPLY Qty: 1 0RF Dose Instruction: As directed Rx Instructions: new seat and arm rests for quantum power chair (DME) Power Wheelchair Device See Dose Instructions .ROUTE .MEDSUPPLY Qty: 1 0RF Dose Instruction: As directed Rx Instructions: THERAPIST EVALUATION FOR POWER MOBILITY (DME) Hospital Bed Misc See Rx Instructions .Route Qty: 1 0RF Rx Instructions: As directed (DME) hospital bed mattress See Rx Instructions .Route .MEDSUPPLY Qty: 1 0RF Rx Instructions: As directed fluticasone propionate [Flonase Allergy Relief] 50 mcg/actuation spray,suspension 2 spray INTNAS QAM Qty: 54.6 3RF losartan 100 mg tablet 100 mg PO QAM Qty: 90 3RF furosemide 20 mg tablet 20 mg PO QAM Qty: 30 5RF diltiazem HCl 360 mg tablet extended release 24 hr 360 mg PO QAM Qty: 90 3RF potassium chloride 20 mEq tablet extended release 20 meq PO QAM Qty: 90 3RF loratadine 10 mg tablet 10 mg PO DAILY Qty: 90 3RF Powered Wheelchair Misc See Rx Instructions .ROUTE ONCE Qty: 1 0RF Rx Instructions: Power chair evaluation & repair repair. Battery not holding charge. Tums 300 mg (750 mg) Tablet,Chewable 300 mg PO TID olopatadine 0.1 % drops 1 drp OPB QAM Rx Instructions: 1 drp into the eye(s) daily; 1 drop to both eyes once daily Referrals Referrals: Robin Mandujano MD [Primary Care Provider] -
[2023-11-08 16:26] LABS: Alanine Aminotransferase 35 U/L (7-52); Albumin Globulin Ratio 1.4 (0.9-2); Albumin Level 4.9 gm/dl (3.4-5.0); Alkaline Phosphatase 93 U/L (34-104); Anion Gap 13 (3-11); Aspartate Aminotransferase 26 U/L (13-39); BUN Creatinine Ratio 15.4 (10-20); Bilirubin,Total 0.5 mg/dl (0.2-1.0); Blood Urea Nitrogen 14 mg/dl (6-23); Calcium 9.3 mg/dl (8.6-10.3); Carbon Dioxide 23 mmol/L (21-32); Chloride 103 mmol/L (98-107); Creatinine Clr Calc Pharmacy 90.4 ml/min; Est GFR (African American) 102.9 ml/min; Est GFR (Non-African American) 88.8 ml/min; Globulin 3.5 gm/dl (2.5-4.0); Glucose 132 mg/dl (70-99(Fasting)); Potassium 3.8 mmol/L (3.5-5.1); Sodium 139 mmol/L (136-145); Total Protein 8.4 gm/dl (6.0-8.3)
[2023-11-08 16:39] LABS: Troponin I High Sensitivity 112.5 pg/ml (0-20)
[2023-11-08] MEDS: SODIUM CHLORIDE 0.9% 500 ML IV ONE (17:01)
--- NOTE | 2023-11-08 17:14 | XRay Report ---
XR tibia fibula LT 2V CLINICAL HISTORY: injury to L mckinnon COMPARISON STUDY: None. FINDINGS: Diffuse soft tissue swelling/edema within the left lower leg. No acute fracture or dislocat ion within the left tibia or fibula. No radiopaque foreign bodies. The bones demonstrate a gracile ap pearance which is likely chronic. There is chronic deformity at the tibiotalar joint. IMPRESSION: 1. No acute fracture or dislocation within the left lower leg. 2. Diffuse soft tissue swelling/edema. ACT 112: Negative or not required by law. Electronically signed by: Favian Gudino M.D. 11/08/2023 5:13 PM
[2023-11-08] MEDS: BACITRACIN/POLYMYXIN B SULFATE 90 APPLN/28.4 GM TUBE EXT ONE (17:20)
[2023-11-08] MEDS: ASPIRIN CHEW 324 MG PO STA (17:33)
[2023-11-08 17:49] LABS: Partial Thromboplastin Ratio 0.9; Partial Thromboplastin Time 24 Seconds (21-31); Prothrombin Time 10.9 Seconds (9.0-12.0)
--- NOTE | 2023-11-08 18:20 | History & Physical Report ---
Date of Service November 08, 2023 Assessment & Plan (1) Cellulitis: Plan: See picture in H&P Suspect this is mostly skin changes from being under power wheelchair but recommend short course of antibiotics given unexplained tachycardia and WBC pending blood cultures and clinical course Switch to Ceftriaxone 2g IV daily (2) Sepsis: Plan: Technically he meets criteria for this with tachycardia and elevated WBC although source of cellulitis remains debatable Switch antibiotics to ceftriaxone Follow up blood cultures (3) Elevated troponin: Plan: No chest pain or shortness of breath to suggest ACS although he did have some nausea that resolved with nitroglycerin in the ER ASA 324mg PO given in the ER Given lack of symptoms and EKG changes and questionable benefit will avoid IV heparin at this time Trend troponin overnight TTE Consult cardiology (4) Tachycardia: Plan: Does not appear dehydrated on exam. No hypotension. Pt reports taking his usual medications including diltiazem this morning ?secondary to infection, monitor following diltiazem dose tomorrow to see if resolves (5) Obstructive sleep apnea: Plan: No CPAP at home (6) Hypertension: Plan: Continue losartan, furosemide, diltiazem Plan VTE Prophylaxis - Lovenox 40mg SQ daily Diet - regular Disposition - observation to med/tele Admission and Anticipated Discharge Date Admission Date: November 08, 2023 History of Present Illness Chief Complaint: Tachycardia Primary Care Provider: Robin Mandujano MD Ash Boo is a 62 year old male with congenital arthrogryposis who presents to the ER with tachycardia. He reports falling earler today and having his left leg stuck under a power wheelchair. He was evaluated by EMS at that time and was mildly tachycardic and recommended if this is getting worse then he should come to the ER. He was evaluated by his physician at his living facility and found to be increasingly tachycardic with HR in 120s therefore was advised to come to the ER for evaluation. He reports his leg has become increasingly erythematous over the last few hours in addition. He reports no chest pain or shortness of breath but has had nausea which started around 10am and still ongoing but a little better and subsequently relieved with nitroglycerin in the ER. Allergies Allergy/AdvReac Type Severity Reaction Status Date / Time pollen extracts Allergy Mild sneezing, Verified 11/08/23 16:25 watery eye Home Medications Medication Instructions Recorded Confirmed Type miscellaneous medical supply #1 ea 03/13/19 06/29/23 Rx Wheelchair (Powered) (Power #1 ea 03/29/19 06/29/23 Rx Wheelchair) Hospital Bed Homecare (Hospital #1 ea 04/21/21 06/29/23 Rx Bed) hospital bed mattress #1 ea 08/20/22 06/29/23 Rx fluticasone propionate 50 2 spray intranasal QAM #54.6 mL 05/18/23 11/08/23 Rx mcg/actuation nasal spray,suspension (Flonase Allergy Relief) losartan 100 mg tablet 100 mg PO QAM #90 tabs 06/13/23 11/08/23 Rx furosemide 20 mg tablet 20 mg PO QAM #30 tabs 07/18/23 11/08/23 Rx diltiazem HCl 360 mg 360 mg PO QAM #90 tabs 07/25/23 11/08/23 Rx tablet,extended release 24 hr potassium chloride 20 mEq 20 meq PO QAM #90 tabs 09/12/23 11/08/23 Rx tablet,extended release loratadine 10 mg tablet 10 mg PO DAILY #90 tabs 10/12/23 11/08/23 Rx Powered Wheelchair See Rx Instructions .Route ONCE #1 10/21/23 Rx ea calcium carbonate (Tums) 300 mg PO TID 11/08/23 11/08/23 History olopatadine 0.1 % eye drops 1 drp OPB QAM 11/08/23 11/08/23 History Past Med/Surg History Problem List (Updated 11/09/23 @ 06:19 by Samir Rothman MD) Sepsis Cellulitis Elevated troponin (Acute) Tachycardia (Acute) Arthrogryposis (Acute) Elevated PSA Peripheral edema Dependent edema Cerumen impaction Allergic rhinitis (Acute) Dysphagia (Acute) Erectile dysfunction (Acute) Gastroesophageal reflux disease (Acute) Hyperlipidemia (Acute) Hypertension (Acute) Obstructive sleep apnea (Acute) no device Tubular adenoma of colon (Acute) Medical History Allergic rhinitis Chronic back pain 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 Dysphagia Erectile dysfunction Gastroesophageal reflux disease History of COVID-19 hx of 02/01/21--severe, had to be hospitalized on oxygen--resolved Hyperlipidemia Hypertension Obstructive sleep apnea no device Sleep disturbances Tubular adenoma of colon Weakness Wheelchair bound pt states he can transfer himself from wheelchair to bed Surgical History History of anesthesia reaction during elbow surgery as a child roughly around age 5 or 6, pt had too much anesthesia and was in coma for a couple days--has had surgery since without any issues History of colonoscopy History of elbow surgery right d/t congenital arthrogryposis History of foot surgery multiple on bilateral feet d/t congenital arthrogryposis History of open reduction and internal fixation (ORIF) procedure left patella fx--no hardware History of shoulder surgery right d/t congenital arthrogryposis History of surgery on right wrist d/t congenital arthrogryposis History of tooth extraction Family History Mother Aneurysm of abdominal aorta Lung disease Father Myocardial infarction Hx of CABG Brother Hypertension Sister Hypertension Other No family history of adverse response to anesthesia Denies family history of Ovarian cancer Prostate cancer Breast cancer Colorectal cancer Social History Smoking Status: Never smoker Second Hand Exposure: No; Do You Dip or Chew Tobacco: No; Hx Alcohol Use: No Hx Substance Use: No Preferred Language: Setswana Communication Ability: Effective Visual Impairment: No Limitations Hearing Ability: Normal Artificial Flower Maker Required: No Beliefs That Will Affect Care: None marital status: Current Living Situation: Alone Current Living Situation Comment: caregiver Francisco, Tuesday-Tuesday for 8 hrs current occupational status: disabled How many Children do You have: 2 Feels Safe at Home: Yes Safety Concerns: Feels Safe At This Time Safety Concerns Comment: Patient has in home caregivers to assist him Childhood Exposure to Second-Hand Smoke: Yes Diet: regular caffeine: No Dental Care, Regularly: No Physical Activity Frequency: Does not Exercise Seatbelt Use: always Sunscreen Use: Yes Assistive Devices: Wheelchair Review of Systems 2 Review of Systems: All systems reviewed & are unremarkable except as noted in HPI & below Physical Exam 2 Constitutional: WD/WN, vitals as above Eyes: PERRL, conjunctivae normal, anicteric sclerae ENMT: external ear and nose normal, oropharynx normal Respiratory: normal respiratory effort, lungs clear to auscultation Cardiovascular: Rate/Rhythm: regular rhythm and + tachycardic Heart Sounds: no murmur Extremities: normal capillary refill; no calf tenderness and no pedal edema Gastrointestinal (Abdomen): normal bowel sounds, soft, nontender, no hepatosplenomegaly Musculoskeletal: cyanosis of left ankle but with normal cap refill chronic contractures of all 4 extremities due to congenital arthrogryposis Skin: erythema and swelling of distal foot and mid-mckinnon to knee as above picture - possibly consistent with cellulitis Neurologic: moves all extremities and awake; not confused Psychiatric: A+Ox3, euthymic affect Results & Data Results & Data Vital Signs (Past 12 Hours) Vital Signs Temp Pulse Pulse Resp BP BP Pulse Ox 11/08/23 17:02 101 H 24 135/89 11/08/23 15:51 103 H 11/08/23 15:35 100 H 17 165/109 H 96 11/08/23 15:25 104 H 18 94 11/08/23 15:25 108 H 18 165/109 H 96 11/08/23 15:25 94 11/08/23 15:07 36.7 C 102 H 18 178/123 H 96 O2 Del Method 11/08/23 17:02 11/08/23 15:51 11/08/23 15:35 Room Air 11/08/23 15:25 Room Air 11/08/23 15:25 Room Air 11/08/23 15:25 Room Air 11/08/23 15:07 Room Air Laboratory Results Abnormal lab results 11/08/23 Range/Units 14:16 WBC 14.84 H (4.8-10.8) K/ul Neut # (Auto) 9.99 H (1.40-6.50) K/uL [place] # (Auto) 1.14 H (0.11-0.59) K/uL Immature Gran # (Auto) 0.22 H (0.01-0.20) K/uL Anion Gap 13 H (3-11) Glucose 132 H (70-99(Fasting)) mg/dl Troponin I High Sens 112.5 H* (0-20) pg/ml Total Protein 8.4 H (6.0-8.3) gm/dl Diagnostic Findings SINGLE VIEW CHEST CLINICAL HISTORY: Atypical chest pain. FINDINGS: 2 AP, portable, upright chest radiographs are compared to study dated 02/01/2021. The patient's right arm partially obscures the lower chest. The heart is enlarged. The pulmonary vasculature is noncontrast. Chronic interstitial thickening similar to previous. The lungs and pleural spaces are clear. No pneumothorax is seen. The skeletal structures are osteopenic. Chronic deformity and postsurgical changes noted in the right shoulder. Arthritic change is also seen in the left shoulder. Degenerative change is noted in the spine. IMPRESSION: Cardiomegaly with no active disease in the chest. XR tibia fibula LT 2V CLINICAL HISTORY: injury to L mckinnon COMPARISON STUDY: None. FINDINGS: Diffuse soft tissue swelling/edema within the left lower leg. No acute fracture or dislocation within the left tibia or fibula. No radiopaque foreign bodies. The bones demonstrate a gracile appearance which is likely chronic. There is chronic deformity at the tibiotalar joint. IMPRESSION: 1. No acute fracture or dislocation within the left lower leg. 2. Diffuse soft tissue swelling/edema. Medications Administered ER Medications Given: Polysporin Normal saline 500ml bolus Aspirin 324mg PO Cefepime 1000mg IV ECG Rate (beats per minute): 111 Rhythm: sinus tachycardia Findings: no acute ischemic change Comparison ECG Date: from (February 01, 2021) Change: no significant change Code Status & VTE Plan Code Status DNR/DNI per patient wishes VTE Prophylaxis Plan VTE Prophylaxis will be ordered: Yes PG Care Time/CCT Total # of Minutes Spent Total Time Spent with Patient: Total time spent is greater than 50% in coordination of care (as documented) at patient's floor/unit and/or counseling patient: Coding Level of Care Code 05139 INT INP/OBS CARE 3/75MIN Diagnoses Cellulitis L03.90 Sepsis A41.9 Elevated troponin R79.89 Tachycardia R00.0 Obstructive sleep apnea G47.33 Essential hypertension I10 Hypertension type: essential hypertension (6) Hypertension Hypertension type: essential hypertension Qualified Code(s): I10 - Essential (primary) hypertension
[2023-11-08 18:27] LABS: Troponin I High Sensitivity 139.2 pg/ml (0-20)
[2023-11-08 18:29] LABS: C Reactive Protein < 0.50 mg/dl (0-0.5)
[2023-11-08] MEDS: NITROGLYCERIN SL 0.4 MG/TAB TAB SL STA (18:49)
[2023-11-08] MEDS: CEFEPIME 1,000 MG in SYRINGE 0 ML IV STA (19:16)
[2023-11-08] MEDS ORDERED: ACETAMINOPHEN 325 MG TAB PO PRN (22:32)
[2023-11-09] MEDS: cefTRIAXone SODIUM 2,000 MG/50 ML BAG IV SCH (03:33)
[2023-11-09 06:42] LABS: Basophils # (auto) 0.02 K/uL (0.00-0.20); Basophils % (auto) 0.2 %; Eosinophils # (auto) 0.14 K/uL (0.00-0.50); Eosinophils % (auto) 1.5 %; Hematocrit (blood only) 45.4 % (42.0-52.0); Hemoglobin 15.8 g/dl (14.0-18.0); Immature Granulocytes # (auto) 0.04 K/uL (0.01-0.20); Immature Granulocytes % (auto) 0.4 %; Lymphocytes # (auto) 2.75 K/uL (1.20-3.40); Lymphocytes % (auto) 28.9 %; Mean Corpuscular Hemoglobin 30.2 pg (25.0-34.0); Mean Corpuscular Hgb Conc 34.8 g/dL (32.0-36.0); Mean Corpuscular Volume 86.6 fL (80.0-100.0); Monocytes # (auto) 0.71 K/uL (0.11-0.59); Monocytes % (auto) 7.5 %; Neutrophils # (auto) 5.87 K/uL (1.40-6.50); Neutrophils % (auto) 61.5 %; Platelet Count 177 K/uL (130-400); RDW Coefficient of Variation 13.2 % (11.5-14.5); RDW Standard Deviation 41.8 fL (36.4-46.3); Red Blood Count 5.24 M/uL (4.70-6.10); White Blood Count 9.53 K/ul (4.8-10.8)
[2023-11-09 07:13] LABS: BUN Creatinine Ratio 15.6 (10-20); Calcium 8.2 mg/dl (8.6-10.3); Creatinine Clr Calc Pharmacy 106.9 ml/min; Est GFR (African American) 111.2 ml/min; Est GFR (Non-African American) 95.9 ml/min; Potassium 3.8 mmol/L (3.5-5.1)
[2023-11-09 07:25] LABS: Troponin I High Sensitivity 174.1 pg/ml (0-20)
[2023-11-09] MEDS: dilTIAZem HCL 180 MG CAPCR PO SCH (09:18)
[2023-11-09] MEDS: ASPIRIN 81 MG ECTAB PO SCH (09:18)
[2023-11-09] MEDS: LOSARTAN POTASSIUM 50 MG TAB PO SCH (09:19)
[2023-11-09] MEDS: FUROSEMIDE 20 MG TAB PO SCH (09:19)
[2023-11-09] MEDS: LORATADINE 10 MG TAB PO SCH (09:19)
[2023-11-09] MEDS: POTASSIUM CHLORIDE CRTAB 20 MEQ TABCR PO SCH (09:20)
[2023-11-09] MEDS: FLUTICASONE PROPIONATE NA SPR 16 GM BTL NAE SCH (09:20)
[2023-11-09] MEDS: CALCIUM CARBONATE 500 MG CHEWABLE TAB PO SCH (09:20)
[2023-11-09] MEDS: ENOXAPARIN INJ 40 MG/0.4 ML SYR SQ SCH (09:21)
--- NOTE | 2023-11-09 12:11 | Cardiology Consultation ---
Date of Consultation November 09, 2023 Assessment & Plan (1) Elevated troponin: (2) Hypertension: (3) Tachycardia: (4) Cellulitis: Plan ASSESSMENT/PLAN: 1. Elevated troponin: No symptoms to suggest acute coronary syndrome. Had a mechanical fall. Likely demand ischemia in the setting of fall, hypertension, cellulitis. No further cardiac workup necessary at this time. Echo with normal LV systolic function and wall motion. Discussed with patient. 2. Hypertension: Blood pressure mostly hypertensive. Blood pressure typically better controlled/normotensive at outpatient appointments that are viewable currently. Blood pressure may be elevated due to other current issues. If remains elevated, would recommend further adjustment to his antihypertensive regimen. Low-sodium diet. 3. Tachycardia: Was tachycardic. Likely related to his other acute issues and concern for cellulitis. Sinus. 4. Cellulitis: As per primary hospitalist service. 5. Disposition: Cardiology will sign off at this time. Please call with further questions or concerns. Can follow-up with his PCP. Patient care discussed with Dr. Rajan of the primary hospitalist service. Today's visit was 55 minutes in duration which includes [id number] time, counseling patient, coordinating care, reviewing records, and completing documentation. Thank you for allowing me to participate in the care of your patient. Please call for any other questions or concerns. Sincerely, Cb Daley M.D. History of Present Illness Reason for Consultation: "Possible NSTEMI" Requesting Physician: Dr. Rothman Attending Physician: Mehnaz Rajan MD History of Present Illness Mr. Salmeron is a very pleasant 62-year-old gentleman with a history significant for congenital arthrogryposis, hypertension, dyslipidemia, and sleep apnea (did not tolerate CPAP). He was hospitalized on 11/08/2023 after mechanical fall and concern for cellulitis/sepsis. In the morning on 11/08/2023, he was transferring from his power chair and his foot got caught beneath the chair resulting in a fall. He summon help and estimates being on the floor for only 30 minutes total. He recalls his blood pressure being elevated initially with systolic pressure in the 170s and diastolic greater than 100. He developed nausea once in the ER. He denies any chest pain, shortness of breath, syncope, near syncope, palpitations, edema, or bleeding such as melena, hematochezia, or hematuria. He was placed on antibiotic therapy by the hospitalist service for concern of cellulitis. He also received IV fluid. He is able to transfer but otherwise is very sedentary. He does not walk. Review of systems: As above. Review of systems otherwise negative/unremarkable. Family history: No known premature CAD in first-degree relatives. Maternal grandparents both had RI. His mother had "heart problems" but he does not know the details. Social history: He denies smoking or drug abuse. Occasional alcohol. . 2 adult sons (live in [place] and [place]). 3 friends/caregivers presented to the bedside near the end of our visit. Allergies Allergy/AdvReac Type Severity Reaction Status Date / Time pollen extracts Allergy Mild sneezing, Verified 11/08/23 16:25 watery eye Home Medications Medication Instructions Recorded Confirmed Type miscellaneous medical supply #1 ea 03/13/19 06/29/23 Rx Wheelchair (Powered) (Power #1 ea 03/29/19 06/29/23 Rx Wheelchair) Hospital Bed Homecare (Hospital #1 ea 04/21/21 06/29/23 Rx Bed) hospital bed mattress #1 ea 08/20/22 06/29/23 Rx fluticasone propionate 50 2 spray intranasal QAM #54.6 mL 05/18/23 11/08/23 Rx mcg/actuation nasal spray,suspension (Flonase Allergy Relief) losartan 100 mg tablet 100 mg PO QAM #90 tabs 06/13/23 11/08/23 Rx furosemide 20 mg tablet 20 mg PO QAM #30 tabs 07/18/23 11/08/23 Rx diltiazem HCl 360 mg 360 mg PO QAM #90 tabs 07/25/23 11/08/23 Rx tablet,extended release 24 hr potassium chloride 20 mEq 20 meq PO QAM #90 tabs 09/12/23 11/08/23 Rx tablet,extended release loratadine 10 mg tablet 10 mg PO DAILY #90 tabs 10/12/23 11/08/23 Rx Powered Wheelchair See Rx Instructions .Route ONCE #1 10/21/23 Rx ea calcium carbonate (Tums) 300 mg PO TID 11/08/23 11/08/23 History olopatadine 0.1 % eye drops 1 drp OPB QAM 11/08/23 11/08/23 History Patient History Medical History Wheelchair bound pt states he can transfer himself from wheelchair to bed 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 Chronic back pain History of COVID-19 hx of 02/01/21--severe, had to be hospitalized on oxygen--resolved Weakness Sleep disturbances Surgical History History of anesthesia reaction during elbow surgery as a child roughly around age 5 or 6, pt had too much anesthesia and was in coma for a couple days--has had surgery since without any issues History of colonoscopy History of elbow surgery right d/t congenital arthrogryposis History of foot surgery multiple on bilateral feet d/t congenital arthrogryposis History of open reduction and internal fixation (ORIF) procedure left patella fx--no hardware History of shoulder surgery right d/t congenital arthrogryposis History of surgery on right wrist d/t congenital arthrogryposis History of tooth extraction Family History Mother Aneurysm of abdominal aorta Lung disease Father Myocardial infarction Hx of CABG Brother Hypertension Sister Hypertension Other No family history of adverse response to anesthesia Denies family history of Ovarian cancer Prostate cancer Breast cancer Colorectal cancer Social History Smoking Status: Never smoker Second Hand Exposure: No; Do You Dip or Chew Tobacco: No; Hx Alcohol Use: No Hx Substance Use: No Preferred Language: Welsh Communication Ability: Effective Visual Impairment: No Limitations Hearing Ability: Normal Bird Raiser Required: No Beliefs That Will Affect Care: None marital status: Current Living Situation: Alone Current Living Situation Comment: caregiver Francisco, Tuesday-Tuesday for 8 hrs current occupational status: disabled How many Children do You have: 2 Feels Safe at Home: Yes Safety Concerns: Feels Safe At This Time Safety Concerns Comment: Patient has in home caregivers to assist him Childhood Exposure to Second-Hand Smoke: Yes Diet: regular caffeine: No Dental Care, Regularly: No Physical Activity Frequency: Does not Exercise Seatbelt Use: always Sunscreen Use: Yes Assistive Devices: Hospital Bed, Lift Chair and Scooter/Electric Scooter Physical Exam Physical Exam: Gen.: No acute distress. Alert and oriented. HEENT: Anicteric sclera. Neck: Thick neck. No bruits. Normal carotid upstrokes bilaterally. Cardiac: No ventricular heave. Regular. Normal S1-S2. No murmurs, rubs, or gallops. Pulmonary: Clear to auscultation bilaterally without wheezes, rales, or rhonchi. Abdomen: Soft, nontender, nondistended, with normoactive bowel sounds. No bruits noted. Extremities: 2+ radial pulses bilaterally. 1+ posterior tibialis pulses bilaterally. Trace bilateral lower extremity edema. No cyanosis. Joint deformities noted. Psychiatric: Affect appears appropriate. Results & Data Vital Signs (Past 12 Hours) Vital Signs Temp Pulse Pulse Resp BP Pulse Ox O2 Del Method 11/09/23 10:28 37.2 C 110 H 19 153/92 H 93 Room Air 11/09/23 07:45 Room Air 11/09/23 07:44 37.2 C 102 H 19 151/96 H 95 Room Air 11/09/23 07:10 95 H 11/09/23 03:32 36.7 C 98 H 20 134/93 96 Room Air Laboratory Results Laboratory Results - last 24 hr 11/08/23 11/08/23 11/08/23 14:16 16:56 16:57 WBC 14.84 H RBC 5.80 Hgb 17.2 Hct 50.3 MCV 86.7 MCH 29.7 MCHC 34.2 RDW Std Deviation 41.1 RDW Coeff of [place] 13.1 Plt Count 281 MPV 11.8 Immature Gran % (Auto) 1.5 Neut % (Auto) 67.3 Lymph % (Auto) 22.8 [place] % (Auto) 7.7 Eos % (Auto) 0.4 Baso % (Auto) 0.3 Neut # (Auto) 9.99 H Lymph # (Auto) 3.39 [place] # (Auto) 1.14 H Eos # (Auto) 0.06 Baso # (Auto) 0.04 Immature Gran # (Auto) 0.22 H PT Cancelled 10.9 INR Cancelled 1.0 APTT Cancelled 24 PTT Ratio Cancelled 0.9 Sodium 139 Potassium 3.8 Chloride 103 Carbon Dioxide 23 Anion Gap 13 H BUN 14 Creatinine 0.91 Est Cr Clr Drug Dosing 90.4 Est GFR ( Amer) 102.9 Est GFR (Non-Af Amer) 88.8 BUN/Creatinine Ratio 15.4 Glucose 132 H Calcium 9.3 Magnesium 2.0 Total Bilirubin 0.5 AST 26 ALT 35 Alkaline Phosphatase 93 Total Creatine Kinase 284 H Troponin I High Sens 112.5 H* 139.2 H* D C-Reactive Protein < 0.50 Total Protein 8.4 H Albumin 4.9 Globulin 3.5 Albumin/Globulin Ratio 1.4 Procalcitonin 0.06 11/09/23 11/09/23 00:42 05:59 WBC 9.53 RBC 5.24 Hgb 15.8 Hct 45.4 MCV 86.6 MCH 30.2 MCHC 34.8 RDW Std Deviation 41.8 RDW Coeff of [place] 13.2 Plt Count 177 MPV 12.0 Immature Gran % (Auto) 0.4 Neut % (Auto) 61.5 Lymph % (Auto) 28.9 [place] % (Auto) 7.5 Eos % (Auto) 1.5 Baso % (Auto) 0.2 Neut # (Auto) 5.87 Lymph # (Auto) 2.75 [place] # (Auto) 0.71 H Eos # (Auto) 0.14 Baso # (Auto) 0.02 Immature Gran # (Auto) 0.04 PT INR APTT PTT Ratio Sodium 140 Potassium 3.8 Chloride 107 Carbon Dioxide 22 Anion Gap 11 BUN 12 Creatinine 0.77 Est Cr Clr Drug Dosing 106.9 Est GFR ( Amer) 111.2 Est GFR (Non-Af Amer) 95.9 BUN/Creatinine Ratio 15.6 Glucose 114 H Calcium 8.2 L Magnesium Total Bilirubin AST ALT Alkaline Phosphatase Total Creatine Kinase Troponin I High Sens 237.1 H* D 174.1 H* D C-Reactive Protein Total Protein Albumin Globulin Albumin/Globulin Ratio Procalcitonin Diagnostic Findings ECHO 11/09/23: 1. Normal left ventricular size and systolic function. EF 65-70%. No regional wall motion abnormalities. No left ventricular hypertrophy. 2. No significant valvular abnormalities visualized. 3. Normal estimated right ventricular systolic pressure. Labs reviewed and notable for elevated high-sensitivity troponin (peak 237). No rmal renal function, normal transaminase levels, normal blood counts. ECG personally reviewed: ECG 11/08/2023 at 1515: Sinus tachycardia 111 bpm. ECG 11/09/2023 at 6:35 AM: Sinus rhythm 91 bpm. Prolonged QT. History and physical report reviewed. Chest x-ray 11/08/2023: No active disease in the chest per radiology. Chronic interstitial thickening similar to previous study. Medications Administered Current Inpatient Medications Acetaminophen (Acetaminophen 325 Mg Tab) 650 mg PO Q4H PRN PRN Reason: Pain or Fever Stop: 12/08/23 22:31 Aspirin (Aspirin 81 Mg Ectab) [facility] Stop: 12/09/23 08:59 Last Admin: 11/09/23 09:18 Dose: 81 mg Calcium Carbonate (Calcium Carbonate 500 Mg Chewable Tab) 500 mg PO TID [facility] Stop: 12/09/23 08:59 Last Admin: 11/09/23 09:20 Dose: 500 mg Diltiazem HCl (Diltiazem Hcl 180 Mg Capcr) 360 mg PO Q[facility] Stop: 12/09/23 08:59 Last Admin: 11/09/23 09:18 Dose: 360 mg Enoxaparin Sodium (Enoxaparin Inj 40 Mg/0.4 Ml Syr) 40 mg SQ [facility] Stop: 12/09/23 08:59 Last Admin: 11/09/23 09:21 Dose: 40 mg Fluticasone Propionate (Fluticasone Propionate Na Spr 16 Gm Btl) 2 sprays MILES [facility] Stop: 12/09/23 08:59 Last Admin: 11/09/23 09:20 Dose: 2 sprays Furosemide (Furosemide 20 Mg Tab) 20 mg PO QAAM[facility] Stop: 12/09/23 08:59 Last Admin: 11/09/23 09:19 Dose: 20 mg Ceftriaxone Sodium (Rocephin) 2,000 mg in 50 mls @ 100 mls/hr IV Q24H [facility] Stop: 11/16/23 02:59 Last Infusion: 11/09/23 04:11 Dose: Infused Loratadine (Loratadine 10 Mg Tab) 10 mg PO DAILY [facility] Stop: 12/09/23 08:59 Last Admin: 11/09/23 09:19 Dose: 10 mg Losartan Potassium (Losartan Potassium 50 Mg Tab) 100 mg PO QAAMG [facility] Stop: 12/09/23 08:59 Last Admin: 11/09/23 09:19 Dose: 100 mg Miscellaneous (Olopatadine 0.1%: Order Awaiting Action) 1 each N/A QS [facility] Stop: 12/09/23 07:59 Last Admin: 11/09/23 07:56 Dose: Not Given Potassium Chloride (Potassium Chloride Crtab 20 Meq Tabcr) 20 meq PO QAM [facility] Stop: 12/09/23 08:59 Last Admin: 11/09/23 09:20 Dose: 20 meq PG Care Time/CCT Total # of Minutes Spent Total Time Spent: 55 Total Time Spent with Patient: Total time spent is greater than 50% in coordination of care (as documented) at patient's floor/unit and/or counseling patient: Coding Level of Care Code 98042 INT INP/OBS CARE 2/55MIN Diagnoses Elevated troponin R79.89 Essential hypertension I10 Hypertension type: essential hypertension Tachycardia R00.0 Cellulitis L03.90 Time Spent (min) 55 (2) Hypertension Hypertension type: essential hypertension Qualified Code(s): I10 - Essential (primary) hypertension
--- NOTE | 2023-11-09 12:15 | XCELERA ---
[id number]
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
[2023-11-09] MEDS: DOXYCYCLINE HYCLATE 100 MG CAP PO SCH (17:37)
[2023-11-10 07:03] LABS: Basophils # (auto) 0.03 K/uL (0.00-0.20); Basophils % (auto) 0.3 %; Eosinophils # (auto) 0.46 K/uL (0.00-0.50); Eosinophils % (auto) 5.1 %; Hematocrit (blood only) 44.7 % (42.0-52.0); Hemoglobin 15.2 g/dl (14.0-18.0); Immature Granulocytes # (auto) 0.02 K/uL (0.01-0.20); Immature Granulocytes % (auto) 0.2 %; Lymphocytes # (auto) 2.69 K/uL (1.20-3.40); Lymphocytes % (auto) 29.6 %; Mean Corpuscular Hemoglobin 29.7 pg (25.0-34.0); Mean Corpuscular Volume 87.3 fL (80.0-100.0); Mean Platelet Volume 11.1 fL (9.4-12.4); Monocytes # (auto) 0.85 K/uL (0.11-0.59); Monocytes % (auto) 9.4 %; Neutrophils # (auto) 5.04 K/uL (1.40-6.50); Neutrophils % (auto) 55.4 %; Platelet Count 217 K/uL (130-400); RDW Coefficient of Variation 13.2 % (11.5-14.5); RDW Standard Deviation 42.7 fL (36.4-46.3); Red Blood Count 5.12 M/uL (4.70-6.10); White Blood Count 9.09 K/ul (4.8-10.8)
[2023-11-10 07:27] LABS: Calcium 8.2 mg/dl (8.6-10.3); Potassium 3.9 mmol/L (3.5-5.1)
[2023-11-10 07:33] LABS: BUN Creatinine Ratio 19.7 (10-20); C Reactive Protein 0.79 mg/dl (0-0.5); Creatinine Clr Calc Pharmacy 107.1 ml/min; Est GFR (African American) 111.7 ml/min; Est GFR (Non-African American) 96.4 ml/min
[2023-11-10] MEDS: cephALEXin 500 MG CAP PO SCH (12:33)
--- NOTE | 2023-11-10 12:57 | Hospitalist Progress Note ---
Date of Service November 10, 2023 Assessment & Plan (1) Cellulitis: Plan: Improving slowly per patient Switch to p.o. antibiotics: Keflex and doxycycline Monitor clinically Sepsis resolved Likely discharge tomorrow if continues to improve clinically (2) Sepsis: Plan: Technically he met criteria for this with tachycardia and elevated WBC although source of cellulitis remains debatable Resolved Blood cultures negative over 24 hours. Watch for another 24 hours. (3) Elevated troponin: Plan: No chest pain or shortness of breath to suggest ACS although he did have some nausea that resolved with nitroglycerin in the ER ASA 324mg PO given in the ER Troponin peaked at 237, ECG no ischemic changes, ECHO here without WMAs Seen by Cardiology-thinks from myocardial demand ischemia in setting of hypertension and strain from fall-no further workup needed (4) Tachycardia: Plan: Does not appear dehydrated on exam. No hypotension. Pt reports taking his usual medications including diltiazem Could be from stress response or infection now resolved on tele-continue tele monitoring (5) Obstructive sleep apnea: Plan: No CPAP at home (6) Hypertension: Plan: Continue losartan, furosemide, diltiazem, KCl (7) Physical deconditioning: Plan: Patient fell, his leg got stuck under his power wheelchair with led to this hospitalization. Consult PT/OT to see if he has any discharge needs to prevent further falls. Plan VTE Prophylaxis - Lovenox 40mg SQ daily Likely discharge tomorrow Admission and Anticipated Discharge Date Admission Date: November 10, 2023 Subjective Patient feels better overall. Left leg is improving in redness and warmth. Patient is accompanied by his caregiver at bedside. Review of Systems Review of Systems: All systems reviewed & are unremarkable except as noted in Subjective Physical Exam Physical Exam: General: Awake, conversant Heart: S1, S2/regular rate and rhythm, no murmur rubs or gallops Lungs: Clear to auscultation bilaterally. Normal effort Abdomen: Soft/nontender/nondistended. No hepatosplenomegaly Extremities: No clubbing/cyanosis. Contractures noted in all extremities. Left leg cellulitis improving. Behavior: Appropriate, cooperative Results & Data Results & Data Vital Signs (Past 12 Hours) Vital Signs Temp Pulse Resp BP Pulse Ox O2 Del Method 11/10/23 11:18 36.8 C 82 20 121/83 95 Room Air 11/10/23 08:19 36.7 C 78 20 135/79 94 Room Air 11/10/23 02:50 36.7 C 77 18 128/90 93 Room Air Laboratory Results Abnormal lab results 11/10/23 Range/Units 06:37 [place] # (Auto) 0.85 H (0.11-0.59) K/uL Glucose 109 H (70-99(Fasting)) mg/dl Calcium 8.2 L (8.6-10.3) mg/dl C-Reactive Protein 0.79 H (0-0.5) mg/dl PG Care Time/CCT Total # of Minutes Spent Total Time Spent with Patient: Total time spent is greater than 50% in coordination of care (as documented) at patient's floor/unit and/or counseling patient: Coding Level of Care Code 85661 SUB INP/OBS CARE 2/35MIN Diagnoses Cellulitis L03.90 Sepsis A41.9 Elevated troponin R79.89 Tachycardia R00.0 Obstructive sleep apnea G47.33 Essential hypertension I10 Hypertension type: essential hypertension Physical deconditioning R53.81 (6) Hypertension Hypertension type: essential hypertension Qualified Code(s): I10 - Essential (primary) hypertension
[2023-11-11 07:57] VITALS: RESP 16; TEMP 98.1; O2SAT 96
--- NOTE | 2023-11-11 09:37 | Discharge Summary ---
Date of Service November 11, 2023 Admission HPI Per Admitting Provider Ash Boo is a 62 year old male with congenital arthrogryposis who presents to the ER with tachycardia. He reports falling earler today and having his left leg stuck under a power wheelchair. He was evaluated by EMS at that time and was mildly tachycardic and recommended if this is getting worse then he should come to the ER. He was evaluated by his physician at his living facility and found to be increasingly tachycardic with HR in 120s therefore was advised to come to the ER for evaluation. He reports his leg has become increasingly erythematous over the last few hours in addition. He reports no chest pain or shortness of breath but has had nausea which started around 10am and still ongoing but a little better and subsequently relieved with nitroglycerin in the ER. Admission Exam Per Admitting Provider Constitutional: WD/WN, vitals as above Eyes: PERRL, conjunctivae normal, anicteric sclerae ENMT: external ear and nose normal, oropharynx normal Respiratory: normal respiratory effort, lungs clear to auscultation Cardiovascular: Rate/Rhythm: regular rhythm and + tachycardic Heart Sounds: no murmur Extremities: normal capillary refill; no calf tenderness and no pedal edema Gastrointestinal (Abdomen): normal bowel sounds, soft, nontender, no hepatosplenomegaly Musculoskeletal: cyanosis of left ankle but with normal cap refill chronic contractures of all 4 extremities due to congenital arthrogryposis Principal Diagnosis Left leg cellulitis Sepsis Fall Discharge Exam General: Awake, conversant Heart: S1, S2/regular rate and rhythm, no murmur rubs or gallops Lungs: Clear to auscultation bilaterally. Normal effort Abdomen: Soft/nontender/nondistended. No hepatosplenomegaly Extremities: No clubbing/cyanosis. Contractures noted in all extremities. Left leg cellulitis improving. Behavior: Appropriate, cooperative Discharge Data Allergies Allergy/AdvReac Type Severity Reaction Status Date / Time pollen extracts Allergy Mild sneezing, Verified 11/08/23 16:25 watery eye Consultations 11/08/23 17:45 ED Decision to Admit Stat 11/08/23 22:36 Consult Cardiology Routine Hospital Course (1) Cellulitis: Improving Switch from IV antibiotics to p.o. antibiotics: Keflex and doxycycline Sepsis resolved Patient continued to improve on p.o. antibiotics and thus was discharged today Wound care instructions given to the patient and caregiver (2) Sepsis: Technically he met criteria for this with tachycardia and elevated WBC although source of cellulitis remains debatable Resolved Blood cultures negative over 48 hours (3) Elevated troponin: No chest pain or shortness of breath to suggest ACS although he did have some nausea that resolved with nitroglycerin in the ER ASA 324mg PO given in the ER Troponin peaked at 237, ECG no ischemic changes, ECHO here without WMAs Seen by Cardiology-thinks from myocardial demand ischemia in setting of hypertension and strain from fall-no further workup needed (4) Tachycardia: Does not appear dehydrated on exam. No hypotension. Pt reports taking his usual medications including diltiazem Could be from stress response or infection now resolved on tele-continue tele monitoring (5) Obstructive sleep apnea: No CPAP at home (6) Hypertension: Continue losartan, furosemide, diltiazem, KCl (7) Physical deconditioning: Patient fell, his leg got stuck under his power wheelchair with led to this hospitalization. He can follow-up with his PCP to see if he needs outpatient PT/OT to be arranged for. The patient is not homebound and does not need home PT/OT Plan Discharge to home today Total Time Total Time Spent Total Time Spent (In Minutes): 35 Discharge Plan Discharge Items Patient Disposition: Home - Self-Care Reason For Visit: SEPSIS, ELEVATED TROPONIN Discharge Diagnosis: Left leg cellulitis Sepsis Fall Activity: Resume your previous activity Non-emergency contact: Primary Care Provider Call non-emergency contact if: you have any medication questions and your symptoms worsen Follow-up/Referrals: Robin Mandujano MD [Primary Care Provider] - 11/18/23 11:00 am Diet: Heart Healthy Addtl Attending Provider Instructions: Advised to follow-up with PCP in 1 week - Clean wound with saline and pat dry. Apply aquacel ag to wound bed and secure with optifoam. Change every other day or as needed Pending Studies at Discharge: No Stand-Alone Forms: [facility] Medications and DC Order Prescriptions: New cephalexin 500 mg Capsule 500 mg PO BID 5 Days Qty: 10 0RF doxycycline hyclate 100 mg Capsule 100 mg PO BID 5 Days Qty: 10 0RF Continued (DME) miscellaneous medical supply misc See Dose Instructions .ROUTE .MEDSUPPLY Qty: 1 0RF Dose Instruction: As directed Rx Instructions: new seat and arm rests for quantum power chair (DME) Power Wheelchair Device See Dose Instructions .ROUTE .MEDSUPPLY Qty: 1 0RF Dose Instruction: As directed Rx Instructions: THERAPIST EVALUATION FOR POWER MOBILITY (DME) Hospital Bed Misc See Rx Instructions .Route Qty: 1 0RF Rx Instructions: As directed (DME) hospital bed mattress See Rx Instructions .Route .MEDSUPPLY Qty: 1 0RF Rx Instructions: As directed fluticasone propionate [Flonase Allergy Relief] 50 mcg/actuation spray,suspension 2 spray INTNAS QAM Qty: 54.6 3RF losartan 100 mg tablet 100 mg PO QAM Qty: 90 3RF furosemide 20 mg tablet 20 mg PO QAM Qty: 30 5RF diltiazem HCl 360 mg tablet extended release 24 hr 360 mg PO QAM Qty: 90 3RF potassium chloride 20 mEq tablet extended release 20 meq PO QAM Qty: 90 3RF loratadine 10 mg tablet 10 mg PO DAILY Qty: 90 3RF Powered Wheelchair Misc See Rx Instructions .ROUTE ONCE Qty: 1 0RF Rx Instructions: Power chair evaluation & repair repair. Battery not holding charge. Tums 300 mg (750 mg) Tablet,Chewable 300 mg PO TID olopatadine 0.1 % drops 1 drp OPB QAM Rx Instructions: 1 drp into the eye(s) daily; 1 drop to both eyes once daily Discharge Orders: Discharge Order (Routine); Ordered 11/11/23 Ordered By: Marilu Bernard Admission Data Admit Date/Time: 11/10/23 10:10 Attending Provider: Marilu Bernard Admit Provider: Samir Rothman Primary Care Provider: Robin Mandujano Other Providers: Samir Rothman; Vineet Pollard Other Interventions: Discharge Summary Assessment (RN) Last Done: 11/11/23 10:21 Coding Level of Care Code 14709 INP/OBS DISCH >30 MIN Diagnoses Cellulitis L03.90 Sepsis A41.9 Elevated troponin R79.89 Tachycardia R00.0 Obstructive sleep apnea G47.33 Essential hypertension I10 Hypertension type: essential hypertension Physical deconditioning R53.81
[2023-11-11 10:24] VITALS: BP 125/79; PULSE 80
--- NOTE | 2023-11-12 05:51 | Electrocardiogram Report ---
Test Reason : Blood Pressure : / mmHG Vent. Rate : 111 BPM Atrial Rate : 111 BPM P-R Int : 130 ms QRS Dur : 082 ms QT Int : 322 ms P-R-T Axes : 030 -11 022 degrees QTc Int : 437 ms Sinus tachycardia Minimal voltage criteria for LVH, may be normal variant ( R in aVL ) Borderline ECG When compared with ECG of 01-FEB-2021 13:13, No significant change was found Confirmed by Mamadou Daley ([id number]) on 11/12/2023 5:51:39 AM Referred By: Confirmed By:Mamadou Daley
--- NOTE | 2023-11-12 05:52 | Electrocardiogram Report ---
Test Reason : Blood Pressure : / mmHG Vent. Rate : 091 BPM Atrial Rate : 091 BPM P-R Int : 138 ms QRS Dur : 094 ms QT Int : 368 ms P-R-T Axes : 053 -09 017 degrees QTc Int : 453 ms Normal sinus rhythm When compared with ECG of 08-NOV-2023 15:15, No significant change was found Confirmed by Mamadou Daley ([id number]) on 11/12/2023 5:52:20 AM Referred By: REFERRED SELF Confirmed By:Mamadou Daley
== END 2023-11-11 11:12 | disposition home or self-care (01) | DRG 872 ==
LOC: ED 15:07 → 2N 15:07 → SUATTDRO 19:26 → 2N 23:29
DX: W05.0XXA Fall from non-moving wheelchair, initial encounter; I24.89 Other forms of acute ischemic heart disease; I10 Essential (primary) hypertension; L03.116 Cellulitis of left lower limb; E78.5 Hyperlipidemia, unspecified; R00.0 Tachycardia, unspecified; S80.812A Abrasion, left lower leg, initial encounter; A41.9 Sepsis, unspecified organism; Q74.3 Arthrogryposis multiplex congenita; Y92.009 Unspecified place in unspecified non-institutional (private) residence as the place of occurrence of the external cause; G47.33 Obstructive sleep apnea (adult) (pediatric); Z99.3 Dependence on wheelchair

== ENCOUNTER 2024-12-09 12:18 | Observation (INO) ==
--- NOTE | 2024-12-09 13:05 | Emergency Department Note ---
Impression & Plan Melanotic stools, Acute upper gastrointestinal bleeding, Nausea, Generalized weakness ED Provider Note HISTORY OF PRESENT ILLNESS: Patient is a 64-year-old male presenting with melanotic stool. Patient reports that he woke up feeling generally unwell today. He states that he had a colonoscopy a few weeks ago and has been feeling generally unwell since, but states that today he feels the worst he has felt. He states he has been nauseous. He reportedly started having dark-colored stool about 2 weeks ago, and his lead loader called his doctor who said to just monitor. P patient denies any lightheadedness or dizziness, he is currently complaining of nausea. Denies any abdominal pain, chest pain or shortness of breath. atient reports that post colonoscopy he was having bright red blood in his stool. However, that has since improved. However, he has had notable dark and tarry stool over the last few days. Patient is not on any anticoagulation or antiplatelet therapy. ROS: as above PHYSICAL EXAM: Constitutional: Patient appears in no acute distress. HENT: Head: Normocephalic and atraumatic. Eyes: EOMI, PERRL Mouth/Throat: Mucous membranes moist. Neck: Trachea midline. Neck supple. Cardiovascular: Tachycardic with regular rhythm. No murmurs, rubs or gallops. Intact distal pulses. Pulmonary/Chest: No respiratory distress. Breath sounds clear and equal bilaterally. No wheezes or rales. No chest wall tenderness to palpation. Abdominal: Abdomen soft, no tenderness, rebound or guarding. Rectal: Chaperoned by nursing staff. Melanotic stool. Hemoccult positive. No palpable hemorrhoids or masses. Musculoskeletal: No edema, tenderness or deformity noted. Contractures of bilateral upper extremities. Skin: Warm and dry. No rash, erythema, pallor or cyanosis Psychiatric: Appropriate mood and affect for situation. Neurological: Alert and keenly responsive. CN II-XII grossly intact, moving all extremities equally and fully. MDM: - Vitals signs showed tachycardia. - History obtained via patient. History as above. - Chronic conditions affecting care: HTN; HLD; GERD; congenital multiple arthrogryposis; adenoma of colon - Differential diagnoses include, but are not limited to: Peptic ulcer disease; coagulopathy; diverticular bleed; Hemorrhoidal bleed- Order placed for continuous cardiac monitoring. At this time, monitor showed rate of 79 bpm with normal sinus rhythm, per my interpretation. - External medical records reviewed. Gastrointestinal consultation note dated 11/16/2024 was reviewed. Patient was seen as a consult for hemorrhoids. He had an anoscopy performed with evidence of brown stool and hemorrhoids and an adhered clot. He was treated with silver nitrate. - EKG image interpreted by myself showed normal sinus rhythm. Rate 77 bpm. QT 390. No acute ischemic changes. - Laboratory workup interpreted by myself showed normal WBC; stable hemoglobin; normal PT/INR; stable electrolytes; normal troponin; normal AST/ALT; normal lipase - UA negative for infection - Type and screen ordered - Patient given 1L NS, 4 mg IV zofran and 80 mg IV protonix in ER. - Discussion was had with protective services case worker about patient's case and need for admission - Hospitalist consulted for [facility] ASSESSMENT AND PLAN: Diagnosis: melanotic stool; upper GI bleed; nausea; generalized weakness Plan: Admit Past Med/Surg History Problem List (Updated 12/09/24 @ 15:18 by Mirtha Seals MD) Generalized weakness (Acute) Nausea (Acute) Acute upper gastrointestinal bleeding (Acute) Melanotic stools (Acute) Hemorrhoids History of adenomatous polyp of colon Prediabetes Deformity, foot acquired, cavovarus Benign prostatic hyperplasia (BPH) with straining on urination Physical deconditioning Wheelchair bound pt states he can transfer himself from wheelchair to bed 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 Dependent edema Peripheral edema Elevated PSA Obstructive sleep apnea (Acute) no device Hypertension (Acute) Hyperlipidemia (Acute) Gastroesophageal reflux disease (Acute) Erectile dysfunction (Acute) Arthrogryposis (Acute) Allergic rhinitis (Acute) Medical History (Updated 12/09/24 @ 15:18 by Mirtha Seals MD) Rectal Hemorrhage Dependent edema hx 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 Hx of allergic rhinitis Tubular adenoma of colon hx Chronic back pain History of COVID-19 hx of 02/01/21--severe, had to be hospitalized on oxygen--resolved Weakness Sleep disturbances Surgical History History of open reduction and internal fixation (ORIF) procedure left patella fx--no hardware History of anesthesia reaction during elbow surgery as a child roughly around age 5 or 6, pt had too much anesthesia and was in coma for a couple days--has had surgery since without any issues History of surgery on right wrist d/t congenital arthrogryposis History of elbow surgery right d/t congenital arthrogryposis History of shoulder surgery right d/t congenital arthrogryposis History of foot surgery multiple on bilateral feet d/t congenital arthrogryposis History of tooth extraction History of colonoscopy (2022) Family History Mother Aneurysm of abdominal aorta Lung disease Father Myocardial infarction Hx of CABG Brother Hypertension Sister Hypertension Other No family history of adverse response to anesthesia Denies family history of Ovarian cancer Prostate cancer Breast cancer Colorectal cancer Social History Smoking Status: Never smoker Second Hand Exposure: Yes (hx as child); Do You Dip or Chew Tobacco: No; Hx Alcohol Use: Yes Alcohol type: wine Alcohol Intake Frequency: Monthly or Less Hx Substance Use: Yes Last Used Substance Other:: years ago Preferred Language: Kittitian Communication Ability: Effective Visual Impairment: No Limitations Hearing Ability: Normal 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 Required: No Beliefs That Will Affect Care: None marital status: Current Living Situation: Alone Current Living Situation Comment: caregiver Francisco, Tuesday-Tuesday for 8 hrs current occupational status: disabled How many Children do You have: 2 Feels Safe at Home: Yes Safety Concerns Comment: Patient has in home caregivers to assist him Childhood Exposure to Second-Hand Smoke: Yes Diet: regular caffeine: No Dental Care, Regularly: No Physical Activity Frequency: Does not Exercise Seatbelt Use: always Sunscreen Use: Yes Assistive Devices: None and Wheelchair Allergies Allergies Allergy/AdvReac Type Severity Reaction Status Date / Time pollen extracts Allergy Mild sneezing, Verified 11/16/24 10:25 watery eye Home Meds Home Medications Medication Instructions Recorded Confirmed olopatadine 0.1 % eye drops 1 drp OPB QAM 11/08/23 11/16/24 calcium carbonate (Tums) 300 mg PO DAILY 10/11/24 11/16/24 calcium 1 cap PO QAM 11/02/24 11/16/24 diltiazem HCl 360 mg 360 mg PO QAM 11/02/24 12/09/24 capsule,extended release 24 hr furosemide 20 mg tablet 20 mg PO QAM 11/02/24 12/09/24 garlic 1 cap PO QAM 11/02/24 11/16/24 loratadine 10 mg tablet 10 mg PO QAM 11/02/24 11/16/24 omeprazole 40 mg capsule,delayed 40 mg PO QAM 11/02/24 12/09/24 release polyethylene glycol 3350 17 17 g PO DAILY PRN Constipation 11/02/24 11/16/24 gram/dose oral powder (Miralax) pravastatin 10 mg tablet 10 mg PO DAILY 12/09/24 12/09/24 Previous Rx's Medication Instructions Recorded miscellaneous medical supply #1 ea 03/13/19 Wheelchair (Powered) (Power #1 ea 03/29/19 Wheelchair) Hospital Bed Homecare (Hospital #1 ea 04/21/21 Bed) hospital bed mattress #1 ea 08/20/22 fluticasone propionate 50 2 spray intranasal QAM #54.6 mL 05/18/23 mcg/actuation nasal spray,suspension (Flonase Allergy Relief) Lift Chair #1 ea 06/08/24 losartan 100 mg tablet 100 mg PO QAM #90 tabs 06/12/24 ammonium lactate 12 % lotion 1 applic topical DAILY #225 grams 08/28/24 (AmLactin) hydrocortisone 2.5 % topical cream 1 applic topical BID PRN rash #30 11/12/24 grams hydrocortisone 25 mg-pramoxine 18 1 supp AK BID #12 ea 11/16/24 mg rectal suppository Results & Data (ED) Vital Signs Vital Signs - 24 hr 12/09/24 12:35 12/09/24 12:36 12/09/24 13:00 Temperature 36.7 C Temperature Source Oral Pulse Rate 96 H 102 H 93 H Pulse Rate from SpO2 Sensor 94 H Pulse Rhythm Regular Pulse Strength Normal Respiratory Rate 20 16 Respiratory Effort / Characteristics Non-Labored Respiratory Depth Normal Respiratory Pattern Regular Blood Pressure 117/67 Blood Pressure Mean 83 Blood Pressure Position Lying Pulse Oximetry 100 97 Oxygen Delivery Method Room Air Sepsis Recent Fever Within 48 Hours No Sepsis New/Unexplained Change in Mental Status No Sepsis Action Taken by Nursing No Action Required 12/09/24 13:00 12/09/24 13:12 12/09/24 13:24 Temperature Temperature Source Pulse Rate 83 90 Pulse Rate from SpO2 Sensor 84 Pulse Rhythm Pulse Strength Respiratory Rate 16 16 Respiratory Effort / Characteristics Respiratory Depth Respiratory Pattern Blood Pressure 104/90 Blood Pressure Mean 95 Blood Pressure Position Pulse Oximetry 99 Oxygen Delivery Method Sepsis Recent Fever Within 48 Hours Sepsis New/Unexplained Change in Mental Status Sepsis Action Taken by Nursing 12/09/24 13:30 12/09/24 13:30 12/09/24 13:40 Temperature Temperature Source Pulse Rate 81 Pulse Rate from SpO2 Sensor Pulse Rhythm Regular Pulse Strength Respiratory Rate 14 Respiratory Effort / Characteristics Respiratory Depth Respiratory Pattern Blood Pressure 111/71 Blood Pressure Mean 82 Blood Pressure Position Pulse Oximetry 97 Oxygen Delivery Method Room Air Sepsis Recent Fever Within 48 Hours Sepsis New/Unexplained Change in Mental Status Sepsis Action Taken by Nursing 12/09/24 13:45 12/09/24 13:51 12/09/24 14:00 Temperature Temperature Source Pulse Rate 80 79 Pulse Rate from SpO2 Sensor 80 79 Pulse Rhythm Pulse Strength Respiratory Rate 17 19 15 Respiratory Effort / Characteristics Respiratory Depth Respiratory Pattern Blood Pressure Blood Pressure Mean Blood Pressure Position Pulse Oximetry 95 95 Oxygen Delivery Method Sepsis Recent Fever Within 48 Hours Sepsis New/Unexplained Change in Mental Status Sepsis Action Taken by Nursing Laboratory Data 12/09/24 12:51 12/09/24 12:51 Lab Results 12/09/24 12/09/24 12/09/24 Range/Units 12:51 13:20 13:50 WBC 10.38 (4.8-10.8) K/ul RBC 5.94 (4.70-6.10) M/uL Hgb 17.4 (14.0-18.0) g/dl Hct 51.6 (42.0-52.0) % MCV 86.9 (80.0-100.0) fL MCH 29.3 (25.0-34.0) pg MCHC 33.7 (32.0-36.0) g/dL RDW Std Deviation 44.4 (36.4-46.3) fL RDW Coeff of Taylor 14.1 (11.5-14.5) % Plt Count 247 (130-400) K/uL MPV 11.5 (9.4-12.4) fL Immature Gran % (Auto) 0.2 % Neut % (Auto) 69.0 % Lymph % (Auto) 23.2 % Tompkins % (Auto) 6.6 % Eos % (Auto) 0.8 % Baso % (Auto) 0.2 % Neut # (Auto) 7.16 H (1.40-6.50) K/uL Lymph # (Auto) 2.41 (1.20-3.40) K/uL Tompkins # (Auto) 0.69 H (0.11-0.59) K/uL Eos # (Auto) 0.08 (0.00-0.50) K/uL Baso # (Auto) 0.02 (0.00-0.20) K/uL Immature Gran # (Auto) 0.02 (0.01-0.20) K/uL PT Cancelled 11.3 INR Cancelled 1.0 Sodium 141 (136-145) mmol/L Potassium 3.5 (3.5-5.1) mmol/L Chloride 108 H (98-107) mmol/L Carbon Dioxide 22 (21-32) mmol/L Anion Gap 11 (3-11) BUN 14 (6-23) mg/dl Creatinine 0.78 (0.6-1.4) mg/dl Est Cr Clr Drug Dosing 105.8 ml/min eGFR 98.35 BUN/Creatinine Ratio 17.9 (10-20) Glucose 125 H (70-99(Fasting)) mg/dl Lactate 2.0 (0.4-2.0) mmol/L Calcium 9.5 (8.6-10.3) mg/dl Total Bilirubin 0.6 (0.2-1.0) mg/dl AST 14 (13-39) U/L ALT 18 (7-52) U/L Alkaline Phosphatase 87 (34-104) U/L Troponin I High Sens 3.7 (0-20) pg/ml Total Protein 7.9 (6.0-8.3) gm/dl Albumin 4.9 (3.4-5.0) gm/dl Globulin 3.0 (2.5-4.0) gm/dl Albumin/Globulin Ratio 1.6 (0.9-2) Lipase 33 (11-82) U/L Urine Color Yellow Urine Appearance Clear (Clear) Urine pH 6.5 (4.5-7.5) Ur Specific Qulin 1.015 (1.000-1.030) Urine Protein Negative (Negative) Urine Glucose (UA) Negative (Negative) Urine Ketones Trace H (Negative) Urine Blood Negative (Negative) Urine Nitrite Negative (Negative) Urine Bilirubin Negative (Negative) Urine Urobilinogen Negative (Negative) Ur Leukocyte Esterase Trace H (Negative) Urine WBC (Auto) 0-5 (0-5) /hpf Urine RBC (Auto) 0-2 (0-2) /hpf U Hyaline Cast (Auto) 0-2 (0-2) /lpf U Epithel Cells (Auto) 0-2 (0-2) /hpf Urine Bacteria (Auto) None Seen (None Seen) Urine Comment Blood Type A Positive Antibody Screen NEGATIVE Administered Medications Discontinued Medications Sodium Chloride (Nss) 1,000 mls @ 999 mls/hr IV .Q1H1M ONE Stop: 12/09/24 14:05 Last Admin: 12/09/24 13:28 Dose: 999 mls/hr Documented By: CONOR Pantoprazole Sodium 80 mg/ (Dextrose) 120 mls @ 480 mls/hr IV ONE STA Stop: 12/09/24 13:19 Last Admin: 12/09/24 13:29 Dose: 480 mls/hr Documented By: CONOR Ondansetron HCl (Ondansetron Inj 2 Mg/Ml 2 Ml Vial) 4 mg IV NOW STA Stop: 12/09/24 13:06 Last Admin: 12/09/24 13:27 Dose: 4 mg Documented By: CONOR Discharge Plan Visit Data Chief Complaint: Rectal Bleed Stated Complaint: GI ISSUES, ILLNESS ED Provider: Mirtha Seals Discharge Problem: Melanotic stools, Acute upper gastrointestinal bleeding, Nausea, Generalized weakness Condition: Fair Forms Stand Alone Forms: [facility] [employer] Prescriptions Prescriptions: No Action (DME) miscellaneous medical supply misc See Dose Instructions .ROUTE .MEDSUPPLY Qty: 1 0RF Dose Instruction: As directed Rx Instructions: new seat and arm rests for quantum power chair (DME) Power Wheelchair Device See Dose Instructions .ROUTE .MEDSUPPLY Qty: 1 0RF Dose Instruction: As directed Rx Instructions: THERAPIST EVALUATION FOR POWER MOBILITY (DME) Hospital Bed Misc See Rx Instructions .Route Qty: 1 0RF Rx Instructions: As directed (DME) hospital bed mattress See Rx Instructions .Route .MEDSUPPLY Qty: 1 0RF Rx Instructions: As directed fluticasone propionate [Flonase Allergy Relief] 50 mcg/actuation spray,suspension 2 spray INTNAS QAM Qty: 54.6 3RF (DME) Lift Chair Misc See Rx Instructions .Route Qty: 1 0RF Rx Instructions: As directed losartan 100 mg tablet 100 mg PO QAM Qty: 90 3RF ammonium lactate [AmLactin] 12 % lotion 1 applic topical DAILY Qty: 225 0RF Rx Instructions: Apply to dry skin on the feet once daily. Tums 300 mg (750 mg) tablet,chewable 300 mg PO DAILY olopatadine 0.1 % drops 1 drp OPB QAM Rx Instructions: 1 drp into the eye(s) daily; 1 drop to both eyes once daily garlic Capsule 1 cap PO QAM furosemide 20 mg tablet 20 mg PO QAM calcium 1 cap PO QAM diltiazem HCl 360 mg capsule,extended release 24hr 360 mg PO QAM omeprazole 40 mg capsule,delayed release(DR/EC) 40 mg PO QAM polyethylene glycol 3350 [Miralax] 17 gram/dose powder 17 g PO DAILY PRN (Reason: Constipation) loratadine 10 mg tablet 10 mg PO QAM hydrocortisone 2.5 % cream 1 applic topical BID PRN (Reason: rash) Qty: 30 6RF hydrocortisone-pramoxine 25-18 mg suppository 1 supp AK BID Qty: 12 0RF Rx Instructions: As needed for rectal irritation/bleeding. pravastatin 10 mg tablet 10 mg PO DAILY Patient Comments: 12/09- otc unable to verify Referrals Referrals: Robin Mandujano MD [Primary Care Provider] -
[2024-12-09 13:15] LABS: Hematocrit (blood only) 51.6 % (42.0-52.0); Hemoglobin 17.4 g/dl (14.0-18.0); Immature Granulocytes # (auto) 0.02 K/uL (0.01-0.20); Immature Granulocytes % (auto) 0.2 %; Mean Corpuscular Hemoglobin 29.3 pg (25.0-34.0); Mean Corpuscular Volume 86.9 fL (80.0-100.0); Platelet Count 247 K/uL (130-400); RDW Standard Deviation 44.4 fL (36.4-46.3); Red Blood Count 5.94 M/uL (4.70-6.10); White Blood Count 10.38 K/ul (4.8-10.8)
[2024-12-09] MEDS: ONDANSETRON INJ 2 MG/ML 2 ML VIAL IV STA (13:27)
[2024-12-09] MEDS: SODIUM CHLORIDE 0.9% 1,000 ML IV ONE (13:28)
[2024-12-09 13:34] LABS: Alanine Aminotransferase 18.0 U/L (7-52); Albumin Globulin Ratio 1.6 (0.9-2); Alkaline Phosphatase 87.0 U/L (34-104); Anion Gap 11.0 (3-11); Bilirubin,Total 0.6 mg/dl (0.2-1.0); Blood Urea Nitrogen 14.0 mg/dl (6-23); Calcium 9.5 mg/dl (8.6-10.3); Carbon Dioxide 22.0 mmol/L (21-32); Chloride 108.0 mmol/L (98-107); Creatinine Clr Calc Pharmacy 105.8 ml/min; Globulin 3.0 gm/dl (2.5-4.0); Glucose 125.0 mg/dl (70-99(Fasting)); Lipase 33.0 U/L (11-82); Potassium 3.5 mmol/L (3.5-5.1); Sodium 141.0 mmol/L (136-145); Total Protein 7.9 gm/dl (6.0-8.3)
[2024-12-09 14:09] LABS: Appearance Urine Clear (Clear); Bacteria Urine Automated None Seen (None Seen); Cast Urine Automated 0-2 /lpf (0-2); Epithelial Cell Urine Auto 0-2 /hpf (0-2); Glucose Urine UA Negative (Negative); RBC Urine Automated 0-2 /hpf (0-2); WBC Urine Automated 0-5 /hpf (0-5)
[2024-12-09 14:44] LABS: INR 1.0 (0.9-1.1); Prothrombin Time 11.3 Seconds (9.0-12.0)
[2024-12-09] MEDS ORDERED: ACETAMINOPHEN 325 MG TAB PO PRN (15:01)
[2024-12-09 18:43] LABS: Hematocrit (blood only) 46.3 % (42.0-52.0); Hemoglobin 15.7 g/dl (14.0-18.0)
--- NOTE | 2024-12-09 19:15 | Electrocardiogram Report ---
Test Reason : Blood Pressure : */* mmHG Vent. Rate : 77 BPM Atrial Rate : 77 BPM P-R Int : 152 ms QRS Dur : 94 ms QT Int : 390 ms P-R-T Axes : -21 -12 -13 degrees QTcB Int : 441 ms Normal sinus rhythm Minimal voltage criteria for LVH, may be normal variant ( R in aVL ) Inferior infarct , age undetermined Abnormal ECG When compared with ECG of 16-Nov-2024 12:26, No significant change Confirmed by Quintin Neal ([id number]) on 12/09/2024 7:15:01 PM Referred By: REFERRED SELF Confirmed By: Quintin Neal
--- NOTE | 2024-12-09 19:50 | History & Physical Report ---
Date of Service December 09, 2024 Assessment & Plan (1) Acute GI bleeding: Plan: As above in the History of Present Illness. (2) Polyp of ascending colon: Plan: As above in the History of Present Illness. Admission and Anticipated Discharge Date Admission Date: December 09, 2024 History of Present Illness Chief Complaint: "I had a colonoscopy here at [facility] (11/12/2024, 9:15am, GI Dr. Nathen Hirsch). They said I had internal hemorrhoids and 1 polyp in my (ascending) colon. I went home that same day, and I started having painless bright red blood come out of my rectum. Subsequently, I started having black tarry stools twice a day, every day, since then. My belly doesn't hurt at all. I woke up today (12/09/2024) feeling a little nauseated, but no vomiting or diarrhea or belly pain. I did not pass out or fall down. 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 Nathen Hirsch; cf., pathology result: "Colon, ascending polyp, polypectomy; Fragments of fecal material only" (as per [facility] Pathologist Dr. Mary Nova)). They said I had internal hemorrhoids and 1 polyp in my (ascending) colon. I went home that same day, and I started having painless bright red blood come out of my rectum. Subsequently, I started having black tarry stools twice a day, every day, since then. My belly doesn't hurt at all. I woke up today (12/09/2024) feeling a little nauseated, but no vomiting or diarrhea or belly pain. I did not pass out or fall down. I came to [facility] ER to get checked out." Patient denies antecedent/coincident fevers, chills, diaphoresis, cough, wheeze, sore throat, hemoptysis, shortness of breath, dyspnea on exertion, chest pains, palpitations, pleurisy, vomiting, diarrhea, abdominal pain, pelvic pain, hematemesis, hematochezia, melena, hematuria, dysuria, frequency, urgency, headaches, dizziness, lightheadedness, visual changes, hearing changes, weakness, falls, syncope, trauma, travel history, sick contacts, or food/drug ingestions novel or new. All other review of systems are reported as negative by the patient on observation date 12/09/2024. In [facility] ER bed #B7, patient was afebrile @ 36.7 degrees Celsius, HR 102, RR 20, O2 sat 100% on room air, and BP 117/67 (12/09/2024, 12:36pm). Exam was noted for GUAIAC+ stool, no external hemorrhoids, and no [id number]. Labs in [facility] ER bed #B7 included: WBC 10.38, N69 L23 M7 E1, Hb 15.7, MCV 86.9, MCHC 33.7, platelet 247 (12/09/2024, 12:51pm). INR 1.0 (12/09/2024, 1:50pm). Na 141, K 3.5, BUN 14, creatinine 0.78, glucose 125, Ca 9.5, AST 14, ALT 18, ALK PHOS 87 (12/09/2024, 12:51pm). Lactic acid #1 2.0 mmol/L (, 12:51pm). Troponin #1 3.7 mmol/L (12/09/2024, 12:51pm). Lipase 33 U/L (12/09/2024, 12:51pm). U/A: clear yellow, nitrite-, LE trace, WBC 0-5, RBC 0-2, epithelial cells 0-2, bacteria 0 (12/09/2024, 1:20pm). Additional testing in [facility] ER bed #B7 included: EKG (12/09/2024, 2:02pm): NSR @ 77, NJ 152, QTC 441, q in aVF, TWI in III, aVF, no acute ST depressions/elevations (by my review). Cf., historical EKG (11/08/2024, 6:35am): NSR @ 91, NJ 138, QTC 453, q in AVF, TWI in III, no acute ST depressions/elevations (by my review). Patient was subsequently placed in OBSERVATION on the hospitalist service @ [facility] on 12/09/2024 with the following diagnoses: 1. Acute GI bleed, of unclear etiology, after having undergone colonoscopy (11/12/2024, 9:15am, [facility] GI Dr. Nathen Hirsch). 2. Ascending colon polyp, of unclear etiology, after having undergone colonoscopy (11/12/2024, 9:15am, [facility] GI Dr. Nathen Hirsch), given subsequent pathology result: "Colon, ascending polyp, polypectomy; Fragments of fecal material only" (as per [facility] Pathologist Dr. Mary Nova)). To address #1, patient was made NPO and started on protonix infusion @ 8 mg/hr (12/09/2024, 1:29pm) in [facility] ER bed #B07. Patient was subsequently transitioned to protonix 40mg IV bid (12/09/2024, 7:43pm) in [facility] ER bed #B07. Patient awaits repeat Hb/Hct testing q6h (12/09/2024, 6:00pm; 12/10/2024, 12:00am, 6:00am, 12:00pm, 6:00pm) and formal GI Service evaluation with Dr. Hernandez Moralse in the 12/10/2024 am. To address #2, patient awaits formal GI Service evaluation with Dr. Hernandez Morales in the 12/10/2024 am. Allergies Allergy/AdvReac Type Severity Reaction Status Date / Time pollen extracts Allergy Mild sneezing, Verified 11/16/24 10:25 watery eye Home Medications Medication Instructions Recorded Confirmed Type miscellaneous medical supply #1 ea 03/13/19 11/16/24 Rx Wheelchair (Powered) (Power #1 ea 03/29/19 11/16/24 Rx Wheelchair) Hospital Bed Homecare (Hospital #1 ea 04/21/21 11/16/24 Rx Bed) hospital bed mattress #1 ea 08/20/22 11/16/24 Rx fluticasone propionate 50 2 spray intranasal QAM #54.6 mL 05/18/23 12/09/24 Rx mcg/actuation nasal spray,suspension (Flonase Allergy Relief) olopatadine 0.1 % eye drops 0 drp OPB QAM 11/08/23 12/09/24 History Lift Chair #1 ea 06/08/24 11/16/24 Rx losartan 100 mg tablet 100 mg PO QAM #90 tabs 06/12/24 12/09/24 Rx ammonium lactate 12 % lotion 1 applic topical DAILY #225 grams 08/28/24 12/09/24 Rx (AmLactin) calcium carbonate (Tums) 0 mg PO DAILY 10/11/24 12/09/24 History calcium 0 cap PO QAM 11/02/24 12/09/24 History diltiazem HCl 360 mg 360 mg PO QAM 11/02/24 12/09/24 History capsule,extended release 24 hr furosemide 20 mg tablet 20 mg PO QAM 11/02/24 12/09/24 History garlic 0 cap PO QAM 11/02/24 12/09/24 History loratadine 10 mg tablet 10 mg PO QAM 11/02/24 12/09/24 History omeprazole 40 mg capsule,delayed 40 mg PO QAM 11/02/24 12/09/24 History release polyethylene glycol 3350 17 17 g PO DAILY PRN Constipation 11/02/24 12/09/24 History gram/dose oral powder (Miralax) hydrocortisone 2.5 % topical cream 1 applic topical BID PRN rash #30 11/12/24 12/09/24 Rx grams hydrocortisone 25 mg-pramoxine 18 1 supp NJ BID #12 ea 11/16/24 12/09/24 Rx mg rectal suppository pravastatin 10 mg tablet 10 mg PO DAILY 12/09/24 12/09/24 History Past Med/Surg History Problem List (Updated 12/09/24 @ 20:40 by Sarthak Gregory MD, PhD) Polyp of ascending colon Acute GI bleeding Generalized weakness (Acute) Nausea (Acute) Acute upper gastrointestinal bleeding (Acute) Melanotic stools (Acute) Hemorrhoids History of adenomatous polyp of colon Prediabetes Deformity, foot acquired, cavovarus Benign prostatic hyperplasia (BPH) with straining on urination Physical deconditioning Wheelchair bound pt states he can transfer himself from wheelchair to bed 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 Dependent edema Peripheral edema Elevated PSA Obstructive sleep apnea (Acute) no device Hypertension (Acute) Hyperlipidemia (Acute) Gastroesophageal reflux disease (Acute) Erectile dysfunction (Acute) Arthrogryposis (Acute) Allergic rhinitis (Acute) Medical History Rectal Hemorrhage Dependent edema hx 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 Hx of allergic rhinitis Tubular adenoma of colon hx Chronic back pain History of COVID-19 hx of 02/01/21--severe, had to be hospitalized on oxygen--resolved Weakness Sleep disturbances Surgical History History of open reduction and internal fixation (ORIF) procedure left patella fx--no hardware History of anesthesia reaction during elbow surgery as a child roughly around age 5 or 6, pt had too much anesthesia and was in coma for a couple days--has had surgery since without any issues History of surgery on right wrist d/t congenital arthrogryposis History of elbow surgery right d/t congenital arthrogryposis History of shoulder surgery right d/t congenital arthrogryposis History of foot surgery multiple on bilateral feet d/t congenital arthrogryposis History of tooth extraction History of colonoscopy (2022) Family History Mother , at 70 years of age from lung CA in the setting of tobacco abuse. Aneurysm of abdominal aorta Lung disease Father , at 80 years of age from natural causes with underlying CAD s/p CABG, s/p acute CA. Myocardial infarction Hx of CABG Brother Hypertension Sister Hypertension Other No family history of adverse response to anesthesia Denies family history of Ovarian cancer Prostate cancer Breast cancer Colorectal cancer Social History Smoking Status: Never smoker Second Hand Exposure: Yes (hx as child); Do You Dip or Chew Tobacco: No; Hx Alcohol Use: Yes Alcohol type: wine Alcohol Intake Frequency: Monthly or Less Hx Substance Use: Yes Last Used Substance Other:: years ago Preferred Language: Trinidadian Communication Ability: Effective Visual Impairment: No Limitations Hearing Ability: Normal Fitness Manager Required: No Beliefs That Will Affect Care: None marital status: Current Living Situation: Alone Current Living Situation Comment: caregiver Francisco, Tuesday-Tuesday for 8 hrs current occupational status: disabled How many Children do You have: 2 Feels Safe at Home: Yes Safety Concerns Comment: Patient has in home caregivers to assist him Childhood Exposure to Second-Hand Smoke: Yes Diet: regular caffeine: No Dental Care, Regularly: No Physical Activity Frequency: Does not Exercise Seatbelt Use: always Sunscreen Use: Yes Assistive Devices: None and Wheelchair Review of Systems Constitutional: As above in the History of Present Illness. Physical Exam Constitutional: General: Comfortable, coherent, and cooperative. Not confused or obtunded, but lethargic. Patient speaks very slowly, but in complete, fluent, and articulate 3-5 word sentences without pause, interruption, cough, or wheeze with O2 sat 100% on room air (12/09/2024, 12:36pm). HEENT: Normocephalic, atraumatic. No nystagmus, gaze paresis, anisocoria, miosis, mydriasis, hyphema, scleral injection, conjunctivitis, or pterygium. No otorrhea or rhinorrhea. No pharyngeal erythema, edema, or discharge. Neck: Supple, no stridor, bruit, goiter, or hepato-jugular reflux. Jugular venous pressure is estimated to be 3 cm above the sternal angle of Kaushik, which in turn, is 5 cm above the level of the right atrium; with jugular venous pressure estimated to be 8 cm, then, there is no jugular venous distention on 12/09/2024. Lymphatics: No cervical (anterior/posterior), supraclavicular, infraclavicular, axillary, epitrochlear, or inguinal adenopathy. Chest: Symmetric rise and fall with respirations. Non-tender to palpation. Lungs: Clear to auscultation and percussion. Heart: Regular rate and rhythm. S1 and S2 noted. No S3 or S4 summation gallop. No tripartite friction rub. Grade II/ early systolic murmur @ LLSB without radiation to the carotids, axilla, or back, and which remains invariant in regards to the respiratory cycle. Abdomen: Soft, non-tender, non-distended. No rebound, guarding, Vanessa's sign, or organomegaly. Bowel sounds auscultated in all 4 quadrants. Extremities: No clubbing, cyanosis, or edema. Skin: No decubitus ulcer, exanthem, or enanthem. Neuro: Awake, but lethargic and oriented in regards to person, place, time, and situation. DTR+. 5/5 motor strength in all 4 extremities, both proximally and distally. No myoclonus, tremors, or tics. Genito-urinary: No urethral discharge. No dalton catheter. Results & Data Results & Data Vital Signs (Past 12 Hours) Vital Signs Temp Pulse Pulse Resp BP BP Pulse Ox 12/09/24 18:00 74 18 128/83 98 12/09/24 17:26 83 12/09/24 16:00 85 14 136/89 98 12/09/24 15:00 76 18 146/90 H 96 12/09/24 14:00 79 15 95 12/09/24 13:51 19 12/09/24 13:45 80 17 95 12/09/24 13:40 97 12/09/24 13:30 81 14 12/09/24 13:30 111/71 12/09/24 13:24 90 16 12/09/24 13:12 83 16 99 12/09/24 13:00 104/90 12/09/24 13:00 93 H 16 97 12/09/24 12:36 36.7 C 102 H 20 117/67 100 12/09/24 12:35 96 H O2 Del Method 12/09/24 18:00 Room Air 12/09/24 17:26 12/09/24 16:00 Room Air 12/09/24 15:00 Room Air 12/09/24 14:00 12/09/24 13:51 12/09/24 13:45 12/09/24 13:40 Room Air 12/09/24 13:30 12/09/24 13:30 12/09/24 13:24 12/09/24 13:12 12/09/24 13:00 12/09/24 13:00 12/09/24 12:36 Room Air 12/09/24 12:35 Laboratory Results As above in the History of Present Illness. Diagnostic Findings As above in the History of Present Illness. Medications Administered As above in the History of Present Illness. Code Status & VTE Plan VTE Prophylaxis Plan VTE Prophylaxis will be ordered: No Reason for no VTE drug order: Contraindicated PG Care Time/CCT Total # of Minutes Spent Total Time Spent with Patient: Total time spent is greater than 50% in coordination of care (as documented) at patient's floor/unit and/or counseling patient: Coding Level of Care Code 64134 INT INP/OBS CARE 2/55MIN Diagnoses Acute GI bleeding K92.2 Polyp of ascending colon K63.5
[2024-12-09] MEDS: PANTOprazole 40 MG/10 ML SYR IV SCH (22:19)
[2024-12-10 09:05] LABS: Hematocrit (blood only) 45.7 % (42.0-52.0); Hemoglobin 15.5 g/dl (14.0-18.0); Immature Granulocytes # (auto) 0.03 K/uL (0.01-0.20); Immature Granulocytes % (auto) 0.3 %; Mean Corpuscular Hemoglobin 29.7 pg (25.0-34.0); Mean Corpuscular Volume 87.5 fL (80.0-100.0); Platelet Count 229 K/uL (130-400); RDW Standard Deviation 45.6 fL (36.4-46.3); Red Blood Count 5.22 M/uL (4.70-6.10); White Blood Count 9.85 K/ul (4.8-10.8)
[2024-12-10] MEDS: SODIUM CHLORIDE 0.9% 1,000 ML IV ONE (09:41)
--- NOTE | 2024-12-10 10:50 | Gastrointestinal Consultation ---
Date of Consultation December 10, 2024 Assessment & Plan (1) Melanotic stools: H/H unremarkable. On daily PPI at home. No NSAID use. Currently on a PPI gtt as ordered by PCP. No alarming features at present. -Continue to monitor H/H -OK to continue PPI gtt at present -FOBT requested by Dr. Moralse prior to making further decisions regarding the utility of EGD. Supervising Physician Co-Signing Physician Notes I saw and examined this patient with our nurse practitioner and agree with her assessment and plan. Despite lack of significant GI symptoms in light of the black stool that he is reported we will proceed with endoscopy to exclude peptic ulcer disease and other pathology. History of Present Illness Reason for Consultation: eval melena + hemorrhoids; EGD? Attending Physician: Sarthak Gregory MD, PhD History of Present Illness Patient is a 64 yo male with PMH as listed with recent history of colonoscopy in November 2024 during which he had a polyp of the ascending colon removed. After that procedure he developed BRBPR. He returned to the ED. Anoscopy was performed and hemorrhoids were treated with silver nitrate. He was referred to general surgery for these and has an upcoming appointment in January. He notes that within the last 2 weeks he has had dark stools. He notes his home health aide encouraged him to seek evaluation. H/H is unremarkable at 15.5/45.7. He is not taking iron supplements or Pepto Bismol. He has a history of acid reflux and takes Omeprazole 40 mg daily. He denies heartburn, acid reflux, nausea, hematemesis, or vomiting. No new symptoms otherwise. Allergies Allergy/AdvReac Type Severity Reaction Status Date / Time pollen extracts Allergy Mild sneezing, Verified 11/16/24 10:25 watery eye Home Medications Medication Instructions Recorded Confirmed Type miscellaneous medical supply #1 ea 03/13/19 11/16/24 Rx Wheelchair (Powered) (Power #1 ea 03/29/19 11/16/24 Rx Wheelchair) Hospital Bed Homecare (Hospital #1 ea 04/21/21 11/16/24 Rx Bed) hospital bed mattress #1 ea 08/20/22 11/16/24 Rx fluticasone propionate 50 2 spray intranasal QAM #54.6 mL 05/18/23 12/09/24 Rx mcg/actuation nasal spray,suspension (Flonase Allergy Relief) olopatadine 0.1 % eye drops 0 drp OPB QAM 11/08/23 12/09/24 History Lift Chair #1 ea 06/08/24 11/16/24 Rx losartan 100 mg tablet 100 mg PO QAM #90 tabs 06/12/24 12/09/24 Rx ammonium lactate 12 % lotion 1 applic topical DAILY #225 grams 08/28/24 12/09/24 Rx (AmLactin) calcium carbonate (Tums) 0 mg PO DAILY 10/11/24 12/09/24 History calcium 0 cap PO QAM 11/02/24 12/09/24 History diltiazem HCl 360 mg 360 mg PO QAM 11/02/24 12/09/24 History capsule,extended release 24 hr furosemide 20 mg tablet 20 mg PO QAM 11/02/24 12/09/24 History garlic 0 cap PO QAM 11/02/24 12/09/24 History loratadine 10 mg tablet 10 mg PO QAM 11/02/24 12/09/24 History omeprazole 40 mg capsule,delayed 40 mg PO QAM 11/02/24 12/09/24 History release polyethylene glycol 3350 17 17 g PO DAILY PRN Constipation 11/02/24 12/09/24 History gram/dose oral powder (Miralax) hydrocortisone 2.5 % topical cream 1 applic topical BID PRN rash #30 11/12/24 12/09/24 Rx grams hydrocortisone 25 mg-pramoxine 18 1 supp W[place] BID #12 ea 11/16/24 12/09/24 Rx mg rectal suppository pravastatin 10 mg tablet 10 mg PO DAILY 12/09/24 12/09/24 History Patient History Medical History Rectal Hemorrhage Dependent edema hx 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 Hx of allergic rhinitis Tubular adenoma of colon hx Chronic back pain History of COVID-19 hx of 02/01/21--severe, had to be hospitalized on oxygen--resolved Weakness Sleep disturbances Surgical History History of open reduction and internal fixation (ORIF) procedure left patella fx--no hardware History of anesthesia reaction during elbow surgery as a child roughly around age 5 or 6, pt had too much anesthesia and was in coma for a couple days--has had surgery since without any issues History of surgery on right wrist d/t congenital arthrogryposis History of elbow surgery right d/t congenital arthrogryposis History of shoulder surgery right d/t congenital arthrogryposis History of foot surgery multiple on bilateral feet d/t congenital arthrogryposis History of tooth extraction History of colonoscopy (2022) Family History Mother , at 70 years of age from lung CA in the setting of tobacco abuse. Aneurysm of abdominal aorta Lung disease Father , at 80 years of age from natural causes with underlying CAD s/p CABG, s/p acute [place]. Myocardial infarction Hx of CABG Brother Hypertension Sister Hypertension Other No family history of adverse response to anesthesia Denies family history of Ovarian cancer Prostate cancer Breast cancer Colorectal cancer Social History Smoking Status: Never smoker Second Hand Exposure: Yes (hx as child); Do You Dip or Chew Tobacco: No; Hx Alcohol Use: Yes Alcohol type: beer Alcohol Intake Frequency: Monthly or Less Hx Substance Use: No Preferred Language: [place] Communication Ability: Effective Visual Impairment: No Limitations Hearing Ability: Normal Facilities Administrator Required: No Beliefs That Will Affect Care: None marital status: Current Living Situation: Alone Current Living Situation Comment: caregivers come to patients house current occupational status: disabled How many Children do You have: 2 Feels Safe at Home: Yes Safety Concerns: Feels Safe At This Time Safety Concerns Comment: Patient has in home caregivers to assist him Childhood Exposure to Second-Hand Smoke: Yes Diet: regular caffeine: No Dental Care, Regularly: No Physical Activity Frequency: Does not Exercise Seatbelt Use: always Sunscreen Use: Yes Assistive Devices: Scooter/Electric Scooter Review of Systems Constitutional: no fever and no chills Gastrointestinal: + melena; no abdominal pain, no heartbur n, no nausea, no vomiting and no blood in stools Physical Exam Constitutional: WD/WN, vitals as above Respiratory: normal respiratory effort Cardiovascular: Rate/Rhythm: regular rate Gastrointestinal (Abdomen): normal bowel sounds, soft, nontender, no hepatosplenomegaly Psychiatric: Orientation: alert and oriented x 3 Results & Data Vital Signs (Past 12 Hours) Vital Signs Temp Pulse Resp BP Pulse Ox O2 Del Method 12/10/24 08:44 36.7 C 98 H 18 120/76 95 Room Air Laboratory Results Laboratory Results - last 48 hr 12/09/24 12/09/24 12/09/24 12:51 13:20 13:50 WBC 10.38 RBC 5.94 Hgb 17.4 Hct 51.6 MCV 86.9 MCH 29.3 MCHC 33.7 RDW Std Deviation 44.4 RDW Coeff of Taylor 14.1 Plt Count 247 MPV 11.5 Immature Gran % (Auto) 0.2 Neut % (Auto) 69.0 Lymph % (Auto) 23.2 Moody % (Auto) 6.6 Eos % (Auto) 0.8 Baso % (Auto) 0.2 Neut # (Auto) 7.16 H Lymph # (Auto) 2.41 Moody # (Auto) 0.69 H Eos # (Auto) 0.08 Baso # (Auto) 0.02 Immature Gran # (Auto) 0.02 Absolute Nucleated RBC Nucleated RBC % (auto) Neutrophils % (Manual) Band Neutrophils % Lymphocytes % (Manual) Prolymphocyte % Reactive Lymphs % (Man) Monocytes % (Manual) Eosinophils % (Manual) Basophils % (Manual) Metamyelocytes % (Man) Myelocytes % (Man) Promyelocytes % (Man) Blast Cells % (Manual) Plasma Cell % (Manual) Other Cells % Nucleated RBC % Neutrophils # (Manual) Band Neutrophils # Total Absolute Neuts Lymphocytes # (Manual) Prolymphocyte # Reactive Lymphs # Total Abs Lymphocytes Monocytes # (Manual) Eosinophils # (Manual) Basophils # (Manual) Metamyelocytes # (Man) Myelocytes # (Manual) Promyelocytes # (Man) Blast Cells # (Man) Plasma Cell # (Manual) Other Cells # Nucleated RBCs # (Man) Hypersegmented Neuts Hyposegmented Neuts Hypogranular Neuts Large Granular Lymphs # Lrg Granular Lymphs Hairy Cells Smudge Cells Toxic Granulation Toxic Vacuolation Dohle Bodies Medhat Rods Platelet Estimate Hypogranular Platelets Giant Platelets Platelet Satelliting RBC Morphology Polychromasia Hypochromasia Poikilocytosis Basophilic Stippling Anisocytosis Microcytosis Macrocytosis Spherocytes Pappenheimer Bodies Sickle Cells Target Cells Tear Drop Cells Ovalocytes Stomatocytes Abebe-Mckay Bodies Echinocytes Acanthocytes (Spur) Rouleaux RBC Agglutinates Schistocytes Sezary Cell PT Cancelled 11.3 INR Cancelled 1.0 Sodium 141 Potassium 3.5 Chloride 108 H Carbon Dioxide 22 Anion Gap 11 BUN 14 Creatinine 0.78 Est Cr Clr Drug Dosing 105.8 eGFR 98.35 BUN/Creatinine Ratio 17.9 Glucose 125 H Lactate 2.0 Calcium 9.5 Total Bilirubin 0.6 AST 14 ALT 18 Alkaline Phosphatase 87 Troponin I High Sens 3.7 Total Protein 7.9 Albumin 4.9 Globulin 3.0 Albumin/Globulin Ratio 1.6 Lipase 33 Urine Color Yellow Urine Appearance Clear Urine pH 6.5 Ur Specific Whiteface 1.015 Urine Protein Negative Urine Glucose (UA) Negative Urine Ketones Trace H Urine Blood Negative Urine Nitrite Negative Urine Bilirubin Negative Urine Urobilinogen Negative Ur Leukocyte Esterase Trace H Urine WBC (Auto) 0-5 Urine RBC (Auto) 0-2 U Hyaline Cast (Auto) 0-2 U Epithel Cells (Auto) 0-2 Urine Bacteria (Auto) None Seen Urine Comment Stool Occult Bld Scrn Blood Parasites ID Blood Type A Positive Antibody Screen NEGATIVE 12/09/24 12/10/24 12/10/24 18:30 00:50 06:33 WBC Cancelled RBC Cancelled Hgb 15.7 14.8 Cancelled Hct 46.3 Cancelled MCV Cancelled MCH Cancelled MCHC Cancelled RDW Std Deviation Cancelled RDW Coeff of Taylor Cancelled Plt Count Cancelled MPV Cancelled Immature Gran % (Auto) Cancelled Neut % (Auto) Cancelled Lymph % (Auto) Cancelled Moody % (Auto) Cancelled Eos % (Auto) Cancelled Baso % (Auto) Cancelled Neut # (Auto) Cancelled Lymph # (Auto) Cancelled Moody # (Auto) Cancelled Eos # (Auto) Cancelled Baso # (Auto) Cancelled Immature Gran # (Auto) Cancelled Absolute Nucleated RBC Cancelled Nucleated RBC % (auto) Cancelled Neutrophils % (Manual) Cancelled Band Neutrophils % Cancelled Lymphocytes % (Manual) Cancelled Prolymphocyte % Cancelled Reactive Lymphs % (Man) Cancelled Monocytes % (Manual) Cancelled Eosinophils % (Manual) Cancelled Basophils % (Manual) Cancelled Metamyelocytes % (Man) Cancelled Myelocytes % (Man) Cancelled Promyelocytes % (Man) Cancelled Blast Cells % (Manual) Cancelled Plasma Cell % (Manual) Cancelled Other Cells % Cancelled Nucleated RBC % Cancelled Neutrophils # (Manual) Cancelled Band Neutrophils # Cancelled Total Absolute Neuts Cancelled Lymphocytes # (Manual) Cancelled Prolymphocyte # Cancelled Reactive Lymphs # Cancelled Total Abs Lymphocytes Cancelled Monocytes # (Manual) Cancelled Eosinophils # (Manual) Cancelled Basophils # (Manual) Cancelled Metamyelocytes # (Man) Cancelled Myelocytes # (Manual) Cancelled Promyelocytes # (Man) Cancelled Blast Cells # (Man) Cancelled Plasma Cell # (Manual) Cancelled Other Cells # Cancelled Nucleated RBCs # (Man) Cancelled Hypersegmented Neuts Cancelled Hyposegmented Neuts Cancelled Hypogranular Neuts Cancelled Large Granular Lymphs Cancelled # Lrg Granular Lymphs Cancelled Hairy Cells Cancelled Smudge Cells Cancelled Toxic Granulation Cancelled Toxic Vacuolation Cancelled Dohle Bodies Cancelled Medhat Rods Cancelled Platelet Estimate Cancelled Hypogranular Platelets Cancelled Giant Platelets Cancelled Platelet Satelliting Cancelled RBC Morphology Cancelled Polychromasia Cancelled Hypochromasia Cancelled Poikilocytosis Cancelled Basophilic Stippling Cancelled Anisocytosis Cancelled Microcytosis Cancelled Macrocytosis Cancelled Spherocytes Cancelled Pappenheimer Bodies Cancelled Sickle Cells Cancelled Target Cells Cancelled Tear Drop Cells Cancelled Ovalocytes Cancelled Stomatocytes Cancelled Abebe-Mckay Bodies Cancelled Echinocytes Cancelled Acanthocytes (Spur) Cancelled Rouleaux Cancelled RBC Agglutinates Cancelled Schistocytes Cancelled Sezary Cell Cancelled PT INR Sodium Potassium Chloride Carbon Dioxide Anion Gap BUN Creatinine Est Cr Clr Drug Dosing eGFR BUN/Creatinine Ratio Glucose Lactate Calcium Total Bilirubin AST ALT Alkaline Phosphatase Troponin I High Sens Total Protein Albumin Globulin Albumin/Globulin Ratio Lipase Urine Color Urine Appearance Urine pH Ur Specific Whiteface Urine Protein Urine Glucose (UA) Urine Ketones Urine Blood Urine Nitrite Urine Bilirubin Urine Urobilinogen Ur Leukocyte Esterase Urine WBC (Auto) Urine RBC (Auto) U Hyaline Cast (Auto) U Epithel Cells (Auto) Urine Bacteria (Auto) Urine Comment Stool Occult Bld Scrn Blood Parasites ID Cancelled Blood Type Antibody Screen 12/10/24 12/10/24 12/10/24 08:50 11:51 12:49 WBC 9.85 RBC 5.22 Hgb 15.5 15.3 Hct 45.7 44.8 MCV 87.5 MCH 29.7 MCHC 33.9 RDW Std Deviation 45.6 RDW Coeff of Taylor 14.2 Plt Count 229 MPV 11.2 Immature Gran % (Auto) 0.3 Neut % (Auto) 62.8 Lymph % (Auto) 27.4 Moody % (Auto) 7.2 Eos % (Auto) 2.1 Baso % (Auto) 0.2 Neut # (Auto) 6.18 Lymph # (Auto) 2.70 Moody # (Auto) 0.71 H Eos # (Auto) 0.21 Baso # (Auto) 0.02 Immature Gran # (Auto) 0.03 Absolute Nucleated RBC Nucleated RBC % (auto) Neutrophils % (Manual) Band Neutrophils % Lymphocytes % (Manual) Prolymphocyte % Reactive Lymphs % (Man) Monocytes % (Manual) Eosinophils % (Manual) Basophils % (Manual) Metamyelocytes % (Man) Myelocytes % (Man) Promyelocytes % (Man) Blast Cells % (Manual) Plasma Cell % (Manual) Other Cells % Nucleated RBC % Neutrophils # (Manual) Band Neutrophils # Total Absolute Neuts Lymphocytes # (Manual) Prolymphocyte # Reactive Lymphs # Total Abs Lymphocytes Monocytes # (Manual) Eosinophils # (Manual) Basophils # (Manual) Metamyelocytes # (Man) Myelocytes # (Manual) Promyelocytes # (Man) Blast Cells # (Man) Plasma Cell # (Manual) Other Cells # Nucleated RBCs # (Man) Hypersegmented Neuts Hyposegmented Neuts Hypogranular Neuts Large Granular Lymphs # Lrg Granular Lymphs Hairy Cells Smudge Cells Toxic Granulation Toxic Vacuolation Dohle Bodies Medhat Rods Platelet Estimate Hypogranular Platelets Giant Platelets Platelet Satelliting RBC Morphology Polychromasia Hypochromasia Poikilocytosis Basophilic Stippling Anisocytosis Microcytosis Macrocytosis Spherocytes Pappenheimer Bodies Sickle Cells Target Cells Tear Drop Cells Ovalocytes Stomatocytes Abebe-Mckay Bodies Echinocytes Acanthocytes (Spur) Rouleaux RBC Agglutinates Schistocytes Sezary Cell PT INR Sodium Potassium Chloride Carbon Dioxide Anion Gap BUN Creatinine Est Cr Clr Drug Dosing eGFR BUN/Creatinine Ratio Glucose Lactate Calcium Total Bilirubin AST ALT Alkaline Phosphatase Troponin I High Sens Total Protein Albumin Globulin Albumin/Globulin Ratio Lipase Urine Color Urine Appearance Urine pH Ur Specific Whiteface Urine Protein Urine Glucose (UA) Urine Ketones Urine Blood Urine Nitrite Urine Bilirubin Urine Urobilinogen Ur Leukocyte Esterase Urine WBC (Auto) Urine RBC (Auto) U Hyaline Cast (Auto) U Epithel Cells (Auto) Urine Bacteria (Auto) Urine Comment Stool Occult Bld Scrn Negative Blood Parasites ID Blood Type Antibody Screen PG Care Time/CCT Total # of Minutes Spent Total Time Spent with Patient: Total time spent is greater than 50% in coordination of care (as documented) at patient's floor/unit and/or counseling patient: Coding Level of Care Code 32261 INT INP/OBS CARE MIN Diagnoses Melanotic stools K92.1
[2024-12-10 12:11] LABS: Hematocrit (blood only) 44.8 % (42.0-52.0); Hemoglobin 15.3 g/dl (14.0-18.0)
[2024-12-10] MEDS: LOSARTAN POTASSIUM 50 MG TAB PO SCH (17:07)
[2024-12-10 20:56] LABS: Hematocrit (blood only) 43.1 % (42.0-52.0); Hemoglobin 14.7 g/dl (14.0-18.0)
--- NOTE | 2024-12-10 21:53 | Hospitalist Progress Note ---
Date of Service December 10, 2024 Assessment & Plan (1) Acute GI bleeding: Plan: Patient was subsequently placed in OBSERVATION on the hospitalist service @ [facility] on 12/09/2024 with the following diagnoses: 1. Acute GI bleed, of unclear etiology, after having undergone colonoscopy (11/12/2024, 9:15am, [facility] GI Dr. Nathen Hirsch). 2. Ascending colon polyp, of unclear etiology, after having undergone colonoscopy (11/12/2024, 9:15am, [facility] GI Dr. Nathen Hirsch), given subsequent pathology result: "Colon, ascending polyp, polypectomy; Fragments of fecal material only" (as per [facility] Pathologist Dr. Mary Nova)). To address #1, patient was made NPO and started on protonix infusion @ 8 mg/hr (12/09/2024, 1:29pm) in [facility] ER bed #B07. Patient was subsequently transitioned to protonix 40mg IV bid (12/09/2024, 7:43pm) in [facility] ER bed #[id number]. Patient awaits repeat Hb/Hct testing q6h (12/09/2024, 6:00pm; 12/10/2024, 12:00am, 6:00am, 12:00pm, 6:00pm) and formal GI Service evaluation with Dr. Hernandez Morales in the 12/10/2024 am. To address #2, patient awaits formal GI Service evaluation with Dr. Hernandez Morales in the 12/10/2024 am. (2) Polyp of ascending colon: Admission and Anticipated Discharge Date Admission Date: December 09, 2024 Subjective "I feel ok. No more bright red blood today. No belly pain. No nausea or vomit. Do you know when I will get the EGD?" Review of Systems Constitutional: Patient denies antecedent/coincident fevers, chills, diaphoresis, cough, wheeze, sore throat, hemoptysis, shortness of breath, dyspnea on exertion, chest pains, palpitations, pleurisy, vomiting, diarrhea, abdominal pain, pelvic pain, hematemesis, hematochezia, melena, hematuria, dysuria, frequency, urgency, headaches, dizziness, lightheadedness, visual changes, hearing changes, weakness, falls, syncope, trauma, travel history, sick contacts, or food/drug ingestions novel or new. All other review of systems are reported as negative by the patient on 12/10/2024. Physical Exam Constitutional: General: Comfortable, coherent, and cooperative. Not confused or obtunded, but lethargic. Patient speaks very slowly, but in complete, fluent, and articulate 3-5 word sentences without pause, interruption, cough, or wheeze with O2 sat 100% on room air (12/09/2024, 12:36pm). HEENT: Normocephalic, atraumatic. No nystagmus, gaze paresis, anisocoria, miosis, mydriasis, hyphema, scleral injection, conjunctivitis, or pterygium. No otorrhea or rhinorrhea. No pharyngeal erythema, edema, or discharge. Neck: Supple, no stridor, bruit, goiter, or hepato-jugular reflux. Jugular venous pressure is estimated to be 3 cm above the sternal angle of Kaushik, which in turn, is 5 cm above the level of the right atrium; with jugular venous pressure estimated to be 8 cm, then, there is no jugular venous distention on 12/09/2024. Lymphatics: No cervical (anterior/posterior), supraclavicular, infraclavicular, axillary, epitrochlear, or inguinal adenopathy. Chest: Symmetric rise and fall with respirations. Non-tender to palpation. Lungs: Clear to auscultation and percussion. Heart: Regular rate and rhythm. S1 and S2 noted. No S3 or S4 summation gallop. No tripartite friction rub. Grade II/ early systolic murmu r @ LLSB without radiation to the carotids, axilla, or back, and which remains invariant in regards to the respiratory cycle. Abdomen: Soft, non-tender, non-distended. No rebound, guarding, M urphy's sign, or organomegaly. Bowel sounds auscultated in all 4 quadrants. Extremities: No clubbing, cyanosis, or edema. Skin: No decubitus ulcer, exanthem, or enanthem. Neuro: Awake, but lethargic and oriented in regards to person, place, time, and situation. DTR+. 5/5 motor strength in all 4 extremities, both proximally and distally. No myoclonus, tremors, or tics. Genito-urinary: No urethral discharge. No dalton catheter. Results & Data Results & Data Vital Signs (Past 12 Hours) Vital Signs Temp Pulse Resp BP Pulse Ox O2 Del Method 12/10/24 19:53 36.8 C 85 18 142/92 H 93 Room Air 12/10/24 15:45 36.7 C 87 18 152/95 H 92 Room Air Laboratory Results WBC 10.38, N69 L23 M7 E1, Hb 15.7, MCV 86.9, MCHC 33.7, platelet 247 (12/09/2024, 12:51pm). WBC 9.85, N63 L27 M7 E2, Hb 15.3, MCV 87.5, MCHC 33.9, platelet 229 (12/10/2024, 8:50am). Hb 14.7 (12/10/2024, 8:09pm). INR 1.0 (12/09/2024, 1:50pm). Na 141, K 3.5, BUN 14, creatinine 0.78, glucose 125, Ca 9.5, AST 14, ALT 18, ALK PHOS 87 (12/09/2024, 12:51pm). Lactic acid #1 2.0 mmol/L (, 12:51pm). Troponin #1 3.7 mmol/L (12/09/2024, 12:51pm). Lipase 33 U/L (12/09/2024, 12:51pm). U/A: clear yellow, nitrite-, LE trace, WBC 0-5, RBC 0-2, epithelial cells 0-2, bacteria 0 (12/09/2024, 1:20pm). Diagnostic Findings EKG (12/09/2024, 2:02pm): NSR @ 77, AZ 152, QTC 441, q in aVF, TWI in III, aVF, no acute ST depressions/elevations (by my review). Cf., historical EKG (11/08/2024, 6:35am): NSR @ 91, AZ 138, QTC 453, q in AVF, TWI in III, no acute ST depressions/elevations (by my review). PG Care Time/CCT Total # of Minutes Spent Total Time Spent with Patient: Total time spent is greater than 50% in coordination of care (as documented) at patient's floor/unit and/or counseling patient: Coding Level of Care Code 84250 SUB INP/OBS CARE 235MIN Diagnoses Acute GI bleeding K92.2 Polyp of ascending colon K63.5
--- NOTE | 2024-12-11 09:34 | History & Physical Bridge Note ---
Date of Service December 11, 2024 History & Physical Bridge Note I have examined the patient, reviewed the History & Physical and in the interval since the performance of the History & Physical I have noted the following changes of clinical significance: no changes noted Patient has been NPO. No melena today. Continue PPI. Keep NPO and proceed with EGD today. Supervising Physician Co-Signing Physician Notes I saw and examined this patient with our nurse practitioner and agree with her assessment and plan. History of possible melena no recent episodes. Will proceed with endoscopy to exclude peptic ulcer disease.
[2024-12-11] MEDS: FUROSEMIDE 20 MG TAB PO SCH (12:23)
[2024-12-11] MEDS: SODIUM CHLORIDE 0.9% 500 ML IV SCH (13:51)
--- NOTE | 2024-12-11 13:56 | Anesthesiology Consultation ---
Date of Service December 11, 2024 Assessment & Plan ASA ASA3 Proposed Anesthesia Anesthesia Type: MAC Risk / Benefits Reviewed With: PT / POA / Parent / Guardian, Accepts Plan and Informed Consent Obtained History Surgery Operation Date: 12/11/24 17:25 Proposed Procedures p Esophagogastroduodenoscopy Dr. Andrew Morales MD Operation Date: 12/11/24 17:55 Proposed Procedures p Esophagogastroduodenoscopy Dr. Andrew Morales MD Height/Weight Height: 5 ft 5 in Weight: 106.5 kg Allergies Allergy/AdvReac Type Severity Reaction Status Date / Time pollen extracts Allergy Mild sneezing, Verified 11/16/24 10:25 watery eye Medications Home Medications Medication Instructions Recorded Confirmed Last Taken miscellaneous medical supply #1 ea 03/13/19 11/16/24 Unknown Wheelchair (Powered) (Power #1 ea 03/29/19 11/16/24 Unknown Wheelchair) Hospital Bed Homecare (Hospital #1 ea 04/21/21 11/16/24 Unknown Bed) hospital bed mattress #1 ea 08/20/22 11/16/24 Unknown fluticasone propionate 50 2 spray intranasal QAM #54.6 mL 05/18/23 12/09/24 11/08/23 mcg/actuation nasal spray,suspension (Flonase Allergy Relief) olopatadine 0.1 % eye drops 0 drp OPB QAM 11/08/23 12/09/24 11/08/23 Lift Chair #1 ea 06/08/24 11/16/24 Unknown losartan 100 mg tablet 100 mg PO QAM #90 tabs 06/12/24 12/09/24 11/12/24 ammonium lactate 12 % lotion 1 applic topical DAILY #225 grams 08/28/24 12/09/24 Unknown (AmLactin) calcium carbonate (Tums) 0 mg PO DAILY 10/11/24 12/09/24 Unknown calcium 0 cap PO QAM 11/02/24 12/09/24 Unknown diltiazem HCl 360 mg 360 mg PO QAM 11/02/24 12/09/24 11/12/24 capsule,extended release 24 hr furosemide 20 mg tablet 20 mg PO QAM 11/02/24 12/09/24 11/11/24 garlic 0 cap PO QAM 11/02/24 12/09/24 Unknown loratadine 10 mg tablet 10 mg PO QAM 11/02/24 12/09/24 11/11/24 omeprazole 40 mg capsule,delayed 40 mg PO QAM 11/02/24 12/09/24 11/12/24 release polyethylene glycol 3350 17 17 g PO DAILY PRN Constipation 11/02/24 12/09/24 Unknown gram/dose oral powder (Miralax) hydrocortisone 2.5 % topical cream 1 applic topical BID PRN rash #30 11/12/24 12/09/24 Unknown grams hydrocortisone 25 mg-pramoxine 18 1 supp NV BID #12 ea 11/16/24 12/09/24 Unknown mg rectal suppository pravastatin 10 mg tablet 10 mg PO DAILY 12/09/24 12/09/24 Unknown Active Medications Generic Name Dose Route Start Last Admin Trade Name Freq PRN Reason Stop Dose Admin Diltiazem HCl 360 mg 12/10/24 16:45 12/11/24 12:23 Diltiazem Hcl 180 Mg Capcr PO 01/09/25 16:44 Not Given QAM ANTONY Furosemide 20 mg 12/11/24 09:00 12/11/24 12:23 Furosemide 20 Mg Tab PO 01/10/25 08:59 Not Given QAM ANTONY Pantoprazole Sodium 40 mg in 10 mls @ 5 mls/min 12/09/24 21:00 12/11/24 12:23 Protonix IV 01/08/25 20:59 Not Given BID ANTONY Sodium Chloride 500 mls @ 15 mls/hr 12/11/24 07:30 12/11/24 13:51 Nss IV 12/12/24 07:29 15 mls/hr .Q24H ANTONY Administration Losartan Potassium 100 mg 12/10/24 16:45 12/11/24 12:23 Losartan Potassium 50 Mg Tab PO 01/09/25 16:44 Not Given QAM ANTONY NPO Date Last Intake of Fluids: 12/10/24 Time Last Intake of Fluids: 00:00 Date Last Intake of Solids: 12/10/24 Time Last Intake of Solids: 16:00 Past Medical History Medical History Rectal Hemorrhage Dependent edema hx 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 Hx of allergic rhinitis Tubular adenoma of colon hx Chronic back pain History of COVID-19 hx of 02/01/21--severe, had to be hospitalized on oxygen--resolved Weakness Sleep disturbances Exercise / Class Metabolic Activity IV < 2 Limit ADL/Bedbound Past Family History Family History Mother , at 70 years of age from lung CA in the setting of tobacco abuse. Aneurysm of abdominal aorta Lung disease Father , at 80 years of age from natural causes with underlying CAD s/p CABG, s/p acute [place]. Myocardial infarction Hx of CABG Brother Hypertension Sister Hypertension Other No family history of adverse response to anesthesia Denies family history of Ovarian cancer Prostate cancer Breast cancer Colorectal cancer Past Surgical History Surgical History History of open reduction and internal fixation (ORIF) procedure left patella fx--no hardware History of anesthesia reaction during elbow surgery as a child roughly around age 5 or 6, pt had too much anesthesia and was in coma for a couple days--has had surgery since without any issues History of surgery on right wrist d/t congenital arthrogryposis History of elbow surgery right d/t congenital arthrogryposis History of shoulder surgery right d/t congenital arthrogryposis History of foot surgery multiple on bilateral feet d/t congenital arthrogryposis History of tooth extraction History of colonoscopy (2022) Past Anesthesia History No Hx of Anesthesia Complications and No Family Hx of Anesthesia Complications History of PONV No Hx of PONV and No Hx of Motion Sickness Social History Smoking Status: Never smoker Do You Dip or Chew Tobacco: No Hx Alcohol Use: Yes Alcohol type: beer alcohol intake frequency: holidays/special occasions only Hx Substance Use: No substance use type: former substance user and marijuana Last Used Substance Other:: years ago Physical Exam Vital Signs Last Vital Signs Temp 37.0 C 12/11/24 13:40 Pulse 86 12/11/24 13:40 Resp 17 12/11/24 13:40 BP 126/93 12/11/24 13:40 Pulse Ox 97 12/11/24 13:40 O2 Del Method Room Air 12/11/24 13:40 Constitutional no acute distress ENMT Mouth: no dentition abnormality Thyromental Distance: > or= 3.5 Finger Breadths Mallampati Class: II Neck normal visual inspection Respiratory normal respiratory effort Auscultation: lungs clear to auscultation bilaterally Cardiovascular Rate/Rhythm: regular rate and regular rhythm Musculoskeletal Extremities: + limited ROM of extremities Psychiatric Orientation: alert and oriented x 3 Testing Laboratory Results 12/10/24 20:09 12/09/24 12:51 PT 11.3 Seconds (9.0-12.0) 12/09/24 13:50 INR 1.0 (0.9-1.1) 12/09/24 13:50 Urine Color Yellow 12/09/24 13:20 Urine Appearance Clear (Clear) 12/09/24 13:20 Urine pH 6.5 (4.5-7.5) 12/09/24 13:20 Ur Specific [place] 1.015 (1.000-1.030) 12/09/24 13:20 Urine Protein Negative (Negative) 12/09/24 13:20 Urine Glucose (UA) Negative (Negative) 12/09/24 13:20 Urine Ketones Trace (Negative) H 12/09/24 13:20 Urine Nitrite Negative (Negative) 12/09/24 13:20 Ur Leukocyte Esterase Trace (Negative) H 12/09/24 13:20 Urine WBC (Auto) 0-5 /hpf (0-5) 12/09/24 13:20 Urine RBC (Auto) 0-2 /hpf (0-2) 12/09/24 13:20 U Hyaline Cast (Auto) 0-2 /lpf (0-2) 12/09/24 13:20 U Epithel Cells (Auto) 0-2 /hpf (0-2) 12/09/24 13:20 Urine Bacteria (Auto) None Seen (None Seen) 12/09/24 13:20 Blood Type A Positive 12/09/24 12:51 Antibody Screen NEGATIVE 12/09/24 12:51 Electrocardiogram Date: 12/09/24 Findings: + NSR @ Inferior infarct Chest X-Ray Date: 11/07/24 Findings: + cardiomegaly Echocardiogram Date: 11/08/24 EF: 65% LV Function: normal RWMA: + none Valvular Disease: + no significant valvular disease
--- NOTE | 2024-12-11 14:21 | GI REPORT ---
[facility] Patient: USHA CEBALLOS : 1960 Sex at : Male Age: 64 Years Procedure: Upper GI endoscopy Date: 12/11/2024 Attending Physician: Hernandez Morlaes MD Referring MD: Sarthak Gregory MD Phd Indications: - Suspected upper gastrointestinal bleeding Medications: - Monitored Anesthesia Care Complications: - No immediate complications. Procedure: - Prior to the procedure, a History and Physical was performed, and patient medications and allergies were reviewed. The patient's tolerance of previous anesthesia was also reviewed. The risks and benefits of the procedure and the sedation options and risks were discussed with the patient. All questions were answered, and informed consent was obtained. [Anticoagulant Agents] [Days Prior to Procedure]. [ASA Grade]. After reviewing the risks and benefits, the patient was deemed in satisfactory condition to undergo the procedure. - The egd scope was introduced through the mouth and advanced to the second part of the duodenum. - The upper GI endoscopy was accomplished without difficulty. - The patient tolerated the procedure well. Findings: - The examined esophagus was normal. Biopsies were obtained at the gastroesophageal junction with cold forceps. - The entire examined stomach was normal. - The examined duodenum was normal. Impression: - Normal esophagus. - Biopsies were obtained at the gastroesophageal junction. - Normal stomach. - Normal examined duodenum. Recommendation: - Resume previous diet. - Patient has a contact number available for emergencies. The signs and symptoms of potential delayed complications were discussed with the patient. Return to normal activities tomorrow. Written discharge instructions were provided to the patient. Procedure Code(s): - 16170, Esophagogastroduodenoscopy, flexible, transoral; with biopsy, single or multiple CPT(R) - 2023 copyright [employer]. All Rights Reserved. The CPT codes, CCI edits and ICD codes generated are intended as suggestions and were generated based on input data. These codes are preliminary and upon transit bus operator review may be revised to meet current compliance and payer requirements. The provider is responsible for the final determination of appropriate codes, and modifiers. Hernandez Morales MD This document has been electronically signed. Note Initiated:12/11/2024 Note Completed:12/11/2024 2:21 PM \\[email or web address]\[id number]
--- NOTE | 2024-12-11 14:39 | Anesthesiology Progress Note ---
Date of Service December 11, 2024 Anesthesia Post Procedure Vital Signs Vital Signs: Temp Pulse Resp BP BP Pulse Ox O2 Del Method 12/11/24 14:33 73 18 118/73 96 Room Air 12/11/24 14:18 92 H 18 109/69 96 Room Air 12/11/24 13:40 37.0 C 86 17 126/93 126/93 97 Room Air 12/11/24 08:18 36.9 C 84 18 147/91 H 92 Room Air 12/10/24 19:53 36.8 C 85 18 142/92 H 93 Room Air 12/10/24 15:45 36.7 C 87 18 152/95 H 92 Room Air Transfer of Care Handoff Completed per policy Notes Mental Status: alert / awake / arousable Patient Amnestic to Procedure: Yes Nausea / Vomiting: adequately controlled Pain: adequately controlled Airway Patency, RR, SpO2: stable & adequate BP & HR: stable & adequate Hydration State: stable & adequate Anesthetic Complications: no major complications apparent and Pt Satisfied with anesthetic care
--- NOTE | 2024-12-11 16:34 | Discharge Summary ---
Discharge Summary Date of Service December 11, 2024 Principal Dx & Hospital Course #1 = Principal Diagnosis (1) Acute GI bleeding: Patient was subsequently placed in OBSERVATION on the hospitalist service @ [facility] on 12/09/2024 with the following diagnoses: 1. Acute GI bleed, of unclear etiology, after having undergone colonoscopy (11/12/2024, 9:15am, [facility] GI Dr. Nathen Hirsch). 2. Ascending colon polyp, of unclear etiology, after having undergone colonoscopy (11/12/2024, 9:15am, [facility] GI Dr. Nathen Hirsch), given subsequent pathology result: "Colon, ascending polyp, polypectomy; Fragments of fecal material only" (as per [facility] Pathologist Dr. Mary Nova)). To address #1, patient was made NPO and started on protonix infusion @ 8 mg/hr (12/09/2024, 1:29pm) in [facility] ER bed #B07. Patient was subsequently transitioned to protonix 40mg IV bid (12/09/2024, 7:43pm) in [facility] ER bed #B07. Patient underwent repeat Hb/Hct testing q6h (12/09/2024, 6:00pm; 12/10/2024, 12:00am, 6:00am, 12:00pm, 6:00pm). Patient's Hb/Hct levels remained unchanged throughout hospitalization: cf., Hb 17.4 g/dL, Hct 51.6% (12/09/2024, 12:51pm). cf., Hb 15.7 g/dL, Hct 46.3% (12/09/2024, 6:30pm). cf., Hb 14.8 g/dL, no Hct (12/10/2024, 12:50am). cf., Hb 15.5 g/dL, Hct 45.7% (12/10/2024, 8:50am). cf., Hb 15.3 g/dL, Hct 44.8% (12/10/2024, 11:51am). cf., Hb 14.7 g/dL, Hct 43.1% (12/10/2024, 8:09pm). Patient also underwent formal GI Service evaluation with Dr. Hernandez Morales in the 12/10/2024 am, followed by EGD (12/11/2024, 2:00pm): "Findings: - The examined esophagus was normal. Biopsies were obtained at the gastroesophageal junction with cold forceps. - The entire examined stomach was normal. - The examined duodenum was normal. Impression: - Normal esophagus. - Biopsies were obtained at the gastroesophageal junction. - Normal stomach. - Normal examined duodenum. Recommendation: - Resume previous diet. - Patient has a contact number available for emergencies. The signs and symptoms of potential delayed complications were discussed with the patient. Return to normal activities tomorrow. Written discharge instructions were provided to the patient." To address #2, patient underwent formal GI Service evaluation with Dr. Hernandez Morales in the 12/10/2024 am, and will undergo outpatient screening colonoscopy, to be arranged by his PCP Dr. Robin Mandujano. (2) Polyp of ascending colon: Admission HPI Per Admitting Provider 64 years old male with PMH of FULL CODE @ home alone with a visiting caregiver named Francisco, who stays with the patient 8 hours a day, Tuesday through Tuesday, obesity with BMI 39.8 (height 165.1 cm; weight 108.5 kg), NIK not on nocturnal CPAP, wheelchair bound due to congenital multiple arthrogryposis, allergic rhinitis on loratidine 10mg PO qam and fluticasone nasal spray, 50ug/spray, 2 sprays to each nostril qam, allergic conjunctivitis on olapatadine 0.1% gtt, 1 gtt OU daily, HTN on diltiazem 360mg PO qam, lasix 20mg PO qam, and losartan 100mg PO daily, and GERD on omeprazole 40mg PO qam, who reports: "I had a colonoscopy here at [facility] (11/12/2024, 9:15am, GI Dr. Nathen Hirsch; cf., pathology result: "Colon, ascending polyp, polypectomy; Fragments of fecal material only" (as per [facility] Pathologist Dr. Mary Nova)). They said I had internal hemorrhoids and 1 polyp in my (ascending) colon. I went home that same day, and I started having painless bright red blood come out of my rectum. Subsequently, I started having black tarry stools twice a day, every day, since then. My belly doesn't hurt at all. I woke up today (12/09/2024) feeling a little nauseated, but no vomiting or diarrhea or belly pain. I did not pass out or fall down. I came to [facility] ER to get checked out." Patient denies antecedent/coincident fevers, chills, diaphoresis, cough, wheeze, sore throat, hemoptysis, shortness of breath, dyspnea on exertion, chest pains, palpitations, pleurisy, vomiting, diarrhea, abdominal pain, pelvic pain, hematemesis, hematochezia, melena, hematuria, dysuria, frequency, urgency, headaches, dizziness, lightheadedness, visual changes, hearing changes, weakness, falls, syncope, trauma, travel history, sick contacts, or food/drug ingestions novel or new. All other review of systems are reported as negative by the patient on observation date 12/09/2024. In [facility] ER bed #B7, patient was afebrile @ 36.7 degrees Celsius, HR 102, RR 20, O2 sat 100% on room air, and BP 117/67 (12/09/2024, 12:36pm). Exam was noted for GUAIAC+ stool, no external hemorrhoids, and no [id number]. Labs in [facility] ER bed #B7 included: WBC 10.38, N69 L23 M7 E1, Hb 15.7, MCV 86.9, MCHC 33.7, platelet 247 (12/09/2024, 12:51pm). INR 1.0 (12/09/2024, 1:50pm). Na 141, K 3.5, BUN 14, creatinine 0.78, glucose 125, Ca 9.5, AST 14, ALT 18, ALK PHOS 87 (12/09/2024, 12:51pm). Lactic acid #1 2.0 mmol/L (, 12:51pm). Troponin #1 3.7 mmol/L (12/09/2024, 12:51pm). Lipase 33 U/L (12/09/2024, 12:51pm). U/A: clear yellow, nitrite-, LE trace, WBC 0-5, RBC 0-2, epithelial cells 0-2, bacteria 0 (12/09/2024, 1:20pm). Additional testing in [facility] ER bed #B7 included: EKG (12/09/2024, 2:02pm): NSR @ 77, W[place] 152, QTC 441, q in aVF, TWI in III, aVF, no acute ST depressions/elevations (by my review). Cf., historical EKG (11/08/2024, 6:35am): NSR @ 91, W[place] 138, QTC 453, q in AVF, TWI in III, no acute ST depressions/elevations (by my review). Patient was subsequently placed in OBSERVATION on the hospitalist service @ [facility] on 12/09/2024 with the following diagnoses: 1. Acute GI bleed, of unclear etiology, after having undergone colonoscopy (11/12/2024, 9:15am, [facility] GI Dr. Nathen Hirsch). 2. Ascending colon polyp, of unclear etiology, after having undergone colonoscopy (11/12/2024, 9:15am, [facility] GI Dr. Nathen Hirsch), given subsequent pathology result: "Colon, ascending polyp, polypectomy; Fragments of fecal material only" (as per [facility] Pathologist Dr. Mary Nova)). To address #1, patient was made NPO and started on protonix infusion @ 8 mg/hr (12/09/2024, 1:29pm) in [facility] ER bed #B07. Patient was subsequently transitioned to protonix 40mg IV bid (12/09/2024, 7:43pm) in [facility] ER bed #B07. Patient awaits repeat Hb/Hct testing q6h (12/09/2024, 6:00pm; 12/10/2024, 12:00am, 6:00am, 12:00pm, 6:00pm) and formal GI Service evaluation with Dr. Hernandez Morales in the 12/10/2024 am. To address #2, patient awaits formal GI Service evaluation with Dr. Hernandez Morales in the 12/10/2024 am. Discharge Exam Constitutional General: Comfortable, coherent, and cooperative. Not confused or obtunded, but lethargic. Patient speaks very slowly, but in complete, fluent, and articulate 3-5 word sentences without pause, interruption, cough, or wheeze with O2 sat 96% on room air (12/11/2024, 2:48pm). HEENT: Normocephalic, atraumatic. No nystagmus, gaze paresis, anisocoria, miosis, mydriasis, hyphema, scleral injection, conjunctivitis, or pterygium. No otorrhea or rhinorrhea. No pharyngeal erythema, edema, or discharge. Neck: Supple, no stridor, bruit, goiter, or hepato-jugular reflux. Jugular venous pressure is estimated to be 3 cm above the sternal angle of [place], which in turn, is 5 cm above the level of the right atrium; with jugular venous pressure estimated to be 8 cm, then, there is no jugular venous distention on 12/11/2024. Lymphatics: No cervical (anterior/posterior), supraclavicular, infraclavicular, axillary, epitrochlear, or inguinal adenopathy. Chest: Symmetric rise and fall with respirations. Non-tender to palpation. Lungs: Clear to auscultation and percussion. Heart: Regular rate and rhythm. S1 and S2 noted. No S3 or S4 summation gallop. No tripartite friction rub. Grade II/ early systolic murmur @ LLSB without radiation to the carotids, axilla, or back, and which henrietta ins invariant in regards to the respiratory cycle. Abdomen: Soft, non-tender, non-distended. No rebound, guarding, Vanessa's sign, or organomegaly. Bowel sounds auscultated in all 4 quadrants. Extremities: No clubbing, cyanosis, or edema. Skin: No decubitus ulcer, exanthem, or enanthem. Neuro: Awake, but lethargic and oriented in regards to person, plac e, time, and situation. DTR+. 5/5 motor strength in all 4 extremities, both proximally and distally. No myoclonus, tremors, or tics. Genito-urinary: No urethral discharge. No dalton catheter. Discharge Plan Discharge Items Patient Disposition: Home - Self-Care Reason For Visit: MELENA Discharge Diagnosis: chronic hemorrhoidal bleeding Condition on Discharge: Fair Activity: Resume your previous activity Lifting: Gradually increase as tolerated Bathing: No limitations Exercise/Sports: Gradually increase as tolerated Weightbearing: Full weightbearing Non-emergency contact: Primary Care Provider Call non-emergency contact if: you have any medication questions Follow-up/Referrals: Robin Mandujano MD [Primary Care Provider] - Diet: Heart Healthy Addtl Attending Provider Instructions: See your PCP Dr. Robin Mandujano within 5-7 days of hospital discharge. Pending Studies at Discharge: No Stand-Alone Forms: My [facility] [employer], Smoking Cessation Medications and DC Order Prescriptions: Continued (DME) miscellaneous medical supply misc See Dose Instructions .ROUTE .MEDSUPPLY Qty: 1 0RF Dose Instruction: As directed Rx Instructions: new seat and arm rests for quantum power chair (DME) Power Wheelchair Device See Dose Instructions .ROUTE .MEDSUPPLY Qty: 1 0RF Dose Instruction: As directed Rx Instructions: THERAPIST EVALUATION FOR POWER MOBILITY (DME) Hospital Bed Misc See Rx Instructions .Route Qty: 1 0RF Rx Instructions: As directed (DME) hospital bed mattress See Rx Instructions .Route .MEDSUPPLY Qty: 1 0RF Rx Instructions: As directed fluticasone propionate [Flonase Allergy Relief] 50 mcg/actuation spray,suspension 2 spray INTNAS QAM Qty: 54.6 3RF Patient Comments: 12/09- otc unable to verify (DME) Lift Chair Misc See Rx Instructions .Route Qty: 1 0RF Rx Instructions: As directed losartan 100 mg tablet 100 mg PO QAM Qty: 90 3RF ammonium lactate [AmLactin] 12 % lotion 1 applic topical DAILY Qty: 225 0RF Patient Comments: last filled 07/18/24 Rx Instructions: Apply to dry skin on the feet once daily. Tums 300 mg (750 mg) tablet,chewable 0 mg PO DAILY Patient Comments: 12/09- otc unable to verify olopatadine 0.1 % drops 0 drp OPB QAM Patient Comments: last filled 01/25/24 Rx Instructions: 1 drp into the eye(s) daily; 1 drop to both eyes once daily garlic Capsule 0 cap PO QAM Patient Comments: 12/09- otc unable to verify furosemide 20 mg tablet 20 mg PO QAM calcium 0 cap PO QAM Patient Comments: 12/09- otc unable to verify diltiazem HCl 360 mg capsule,extended release 24hr 360 mg PO QAM omeprazole 40 mg capsule,delayed release(DR/EC) 40 mg PO QAM polyethylene glycol 3350 [Miralax] 17 gram/dose powder 17 g PO DAILY PRN (Reason: Constipation) Patient Comments: 12/09- otc unable to verify loratadine 10 mg tablet 10 mg PO QAM Patient Comments: 12/09- otc unable to verify hydrocortisone 2.5 % cream 1 applic topical BID PRN (Reason: rash) Qty: 30 6RF hydrocortisone-pramoxine 25-18 mg suppository 1 supp [place] BID Qty: 12 0RF Rx Instructions: As needed for rectal irritation/bleeding. pravastatin 10 mg tablet 10 mg PO DAILY Patient Comments: 12/09- otc unable to verify Discharge Orders: Discharge Order (Routine); Ordered 12/11/24 Ordered By: Sarthak Gregory Admission Data Admit Date/Time: 12/09/24 15:01 Attending Provider: Sarthak Gregory Admit Provider: Sarthak Gregory Primary Care Provider: Robin Mandujano Other Providers: Sarthak Gregory; Hernandez Morales I Hospital Stay Data Consultations 12/09/24 15:01 ED Decision to Admit Stat 12/10/24 09:00 Consult Gastroenterology Routine Procedures Performed Operation Date: 12/11/24 17:55 <No data on this case meets the specified criteria> Pending Results Patient Have Any Pending Studies at Discharge: No Discharge Instructions Given to Patient (Per Discharging Provider) See your PCP Dr. Robin Mandujano within 5-7 days of hospital discharge. Total Time Total Time Spent Total Time Spent (In Minutes): 35 minutes. Of this time period, 19 minutes were spent in coordinating patient's discharge. Coding Level of Care Code 88341 INP/OBS DISCH >30 MIN Diagnoses Acute GI bleeding K92.2 Polyp of ascending colon K63.5
[2024-12-11 19:23] VITALS: RESP 18
--- NOTE | 2024-12-12 07:45 | Discharge Summary ---
Discharge Summary Date of Service December 12, 2024 Principal Dx & Hospital Course #1 = Principal Diagnosis (1) Acute GI bleeding: Patient was subsequently placed in OBSERVATION on the hospitalist service @ [facility] on 12/09/2024 with the following diagnoses: 1. Acute GI bleed, of unclear etiology, after having undergone colonoscopy (11/12/2024, 9:15am, [facility] GI Dr. Nathen Hirsch). 2. Ascending colon polyp, of unclear etiology, after having undergone colonoscopy (11/12/2024, 9:15am, [facility] GI Dr. Nathen Hirsch), given subsequent pathology result: "Colon, ascending polyp, polypectomy; Fragments of fecal material only" (as per [facility] Pathologist Dr. Mary Nova)). To address #1, patient was made NPO and started on protonix infusion @ 8 mg/hr (12/09/2024, 1:29pm) in [facility] ER bed #B07. Patient was subsequently transitioned to protonix 40mg IV bid (12/09/2024, 7:43pm) in [facility] ER bed #B07. Patient underwent repeat Hb/Hct testing q6h (12/09/2024, 6:00pm; 12/10/2024, 12:00am, 6:00am, 12:00pm, 6:00pm). Patient's Hb/Hct levels remained unchanged throughout hospitalization: cf., Hb 17.4 g/dL, Hct 51.6% (12/09/2024, 12:51pm). cf., Hb 15.7 g/dL, Hct 46.3% (12/09/2024, 6:30pm). cf., Hb 14.8 g/dL, no Hct (12/10/2024, 12:50am). cf., Hb 15.5 g/dL, Hct 45.7% (12/10/2024, 8:50am). cf., Hb 15.3 g/dL, Hct 44.8% (12/10/2024, 11:51am). cf., Hb 14.7 g/dL, Hct 43.1% (12/10/2024, 8:09pm). Patient also underwent formal GI Service evaluation with Dr. Hernandez Morales in the 12/10/2024 am, followed by EGD (12/11/2024, 2:00pm): "Findings: - The examined esophagus was normal. Biopsies were obtained at the gastroesophageal junction with cold forceps. - The entire examined stomach was normal. - The examined duodenum was normal. Impression: - Normal esophagus. - Biopsies were obtained at the gastroesophageal junction. - Normal stomach. - Normal examined duodenum. Recommendation: - Resume previous diet. - Patient has a contact number available for emergencies. The signs and symptoms of potential delayed complications were discussed with the patient. Return to normal activities tomorrow. Written discharge instructions were provided to the patient." To address #2, patient underwent formal GI Service evaluation with Dr. Hernandez Morales in the 12/10/2024 am, and will undergo outpatient screening colonoscopy, to be arranged by his PCP Dr. Robin Mandujano. 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 Nathen Hirsch; cf., pathology result: "Colon, ascending polyp, polypectomy; Fragments of fecal material only" (as per [facility] Pathologist Dr. Mary Nova)). They said I had internal hemorrhoids and 1 polyp in my (ascending) colon. I went home that same day, and I started having painless bright red blood come out of my rectum. Subsequently, I started having black tarry stools twice a day, every day, since then. My belly doesn't hurt at all. I woke up today (12/09/2024) feeling a little nauseated, but no vomiting or diarrhea or belly pain. I did not pass out or fall down. I came to [facility] ER to get checked out." Patient denies antecedent/coincident fevers, chills, diaphoresis, cough, wheeze, sore throat, hemoptysis, shortness of breath, dyspnea on exertion, chest pains, palpitations, pleurisy, vomiting, diarrhea, abdominal pain, pelvic pain, hematemesis, hematochezia, melena, hematuria, dysuria, frequency, urgency, headaches, dizziness, lightheadedness, visual changes, hearing changes, weakness, falls, syncope, trauma, travel history, sick contacts, or food/drug ingestions novel or new. All other review of systems are reported as negative by the patient on observation date 12/09/2024. In [facility] ER bed #B7, patient was afebrile @ 36.7 degrees Celsius, HR 102, RR 20, O2 sat 100% on room air, and BP 117/67 (12/09/2024, 12:36pm). Exam was noted for GUAIAC+ stool, no external hemorrhoids, and no [id number]. Labs in [facility] ER bed #B7 included: WBC 10.38, N69 L23 M7 E1, Hb 15.7, MCV 86.9, MCHC 33.7, platelet 247 (12/09/2024, 12:51pm). INR 1.0 (12/09/2024, 1:50pm). Na 141, K 3.5, BUN 14, creatinine 0.78, glucose 125, Ca 9.5, AST 14, ALT 18, ALK PHOS 87 (12/09/2024, 12:51pm). Lactic acid #1 2.0 mmol/L (, 12:51pm). Troponin #1 3.7 mmol/L (12/09/2024, 12:51pm). Lipase 33 U/L (12/09/2024, 12:51pm). U/A: clear yellow, nitrite-, LE trace, WBC 0-5, RBC 0-2, epithelial cells 0-2, bacteria 0 (12/09/2024, 1:20pm). Additional testing in [facility] ER bed #B7 included: EKG (12/09/2024, 2:02pm): NSR @ 77, PA 152, QTC 441, q in aVF, TWI in III, aVF, no acute ST depressions/elevations (by my review). Cf., historical EKG (11/08/2024, 6:35am): NSR @ 91, PA 138, QTC 453, q in AVF, TWI in III, no acute ST depressions/elevations (by my review). Patient was subsequently placed in OBSERVATION on the hospitalist service @ [facility] on 12/09/2024 with the following diagnoses: 1. Acute GI bleed, of unclear etiology, after having undergone colonoscopy (11/12/2024, 9:15am, [facility] GI Dr. Nathen Hirsch). 2. Ascending colon polyp, of unclear etiology, after having undergone colonoscopy (11/12/2024, 9:15am, [facility] GI Dr. Nathen Hirsch), given subsequent pathology result: "Colon, ascending polyp, polypectomy; Fragments of fecal material only" (as per [facility] Pathologist Dr. Mary Nova)). To address #1, patient was made NPO and started on protonix infusion @ 8 mg/hr (12/09/2024, 1:29pm) in [facility] ER bed #B07. Patient was subsequently transitioned to protonix 40mg IV bid (12/09/2024, 7:43pm) in [facility] ER bed #B07. Patient awaits repeat Hb/Hct testing q6h (12/09/2024, 6:00pm; 12/10/2024, 12:00am, 6:00am, 12:00pm, 6:00pm) and formal GI Service evaluation with Dr. Hernandez Morales in the 12/10/2024 am. To address #2, patient awaits formal GI Service evaluation with Dr. Hernandez Morales in the 12/10/2024 am. Discharge Exam Constitutional General: Comfortable, coherent, and cooperative. Not confused or obtunded, but lethargic. Patient speaks very slowly, but in complete, fluent, and articulate 3-5 word sentences without pause, interruption, cough, or wheeze with O2 sat 98% on room air (12/12/2024, 7:22pm). HEENT: Normocephalic, atraumatic. No nystagmus, gaze paresis, anisocoria, miosis, mydriasis, hyphema, scleral injection, conjunctivitis, or pterygium. No otorrhea or rhinorrhea. No pharyngeal erythema, edema, or discharge. Neck: Supple, no stridor, bruit, goiter, or hepato-jugular reflux. Jugular venous pressure is estimated to be 3 cm above the sternal angle of Kaushik, which in turn, is 5 cm above the level of the right atrium; with jugular venous pressure estimated to be 8 cm, then, there is no jugular venous distention on 12/12/2024. Lymphatics: No cervical (anterior/posterior), supraclavicular, infraclavicular, axillary, epitrochlear, or inguinal adenopathy. Chest: Symmetric rise and fall with respirations. Non-tender to palpation. Lungs: Clear to auscultation and percussion. Heart: Regular rate and rhythm. S1 and S2 noted. No S3 or S4 summation gallop. No tripartite friction rub. Grade II/ early systolic murmur @ LLSB without radiation to the carotids, axilla, or back, and which henrietta ins invariant in regards to the respiratory cycle. Abdomen: Soft, non-tender, non-distended. No rebound, guarding, Vanessa's sign, or organomegaly. Bowel sounds auscultated in all 4 quadrants. Extremities: No clubbing, cyanosis, or edema. Skin: No decubitus ulcer, exanthem, or enanthem. Neuro: Awake, but lethargic and oriented in regards to person, plac e, time, and situation. DTR+. 5/5 motor strength in all 4 extremities, both proximally and distally. No myoclonus, tremors, or tics. Genito-urinary: No urethral discharge. No dalton catheter. Discharge Plan Discharge Items Patient Disposition: Home - Self-Care Reason For Visit: MELENA Discharge Diagnosis: chronic hemorrhoidal bleeding Condition on Discharge: Fair Activity: Resume your previous activity Lifting: Gradually increase as tolerated Bathing: No limitations Exercise/Sports: Gradually increase as tolerated Weightbearing: Full weightbearing Non-emergency contact: Primary Care Provider Call non-emergency contact if: you have any medication questions Follow-up/Referrals: Robin Mandujano MD [Primary Care Provider] - 12/28/24 10:30 am (w/ Tia) Diet: Heart Healthy Addtl Attending Provider Instructions: See your PCP Dr. Robin Mandujano within 5-7 days of hospital discharge. Pending Studies at Discharge: No Stand-Alone Forms: My [facility], Smoking Cessation Medications and DC Order Prescriptions: Continued (DME) miscellaneous medical supply misc See Dose Instructions .ROUTE .MEDSUPPLY Qty: 1 0RF Dose Instruction: As directed Rx Instructions: new seat and arm rests for quantum power chair (DME) Power Wheelchair Device See Dose Instructions .ROUTE .MEDSUPPLY Qty: 1 0RF Dose Instruction: As directed Rx Instructions: THERAPIST EVALUATION FOR POWER MOBILITY (DME) Hospital Bed Misc See Rx Instructions .Route Qty: 1 0RF Rx Instructions: As directed (DME) hospital bed mattress See Rx Instructions .Route .MEDSUPPLY Qty: 1 0RF Rx Instructions: As directed fluticasone propionate [Flonase Allergy Relief] 50 mcg/actuation spray,suspension 2 spray INTNAS QAM Qty: 54.6 3RF Patient Comments: 12/09- otc unable to verify (DME) Lift Chair Misc See Rx Instructions .Route Qty: 1 0RF Rx Instructions: As directed losartan 100 mg tablet 100 mg PO QAM Qty: 90 3RF ammonium lactate [AmLactin] 12 % lotion 1 applic topical DAILY Qty: 225 0RF Patient Comments: last filled 07/18/24 Rx Instructions: Apply to dry skin on the feet once daily. Tums 300 mg (750 mg) tablet,chewable 0 mg PO DAILY Patient Comments: 12/09- otc unable to verify olopatadine 0.1 % drops 0 drp OPB QAM Patient Comments: last filled 01/25/24 Rx Instructions: 1 drp into the eye(s) daily; 1 drop to both eyes once daily garlic Capsule 0 cap PO QAM Patient Comments: 12/09- otc unable to verify furosemide 20 mg tablet 20 mg PO QAM calcium 0 cap PO QAM Patient Comments: 12/09- otc unable to verify diltiazem HCl 360 mg capsule,extended release 24hr 360 mg PO QAM omeprazole 40 mg capsule,delayed release(DR/EC) 40 mg PO QAM polyethylene glycol 3350 [Miralax] 17 gram/dose powder 17 g PO DAILY PRN (Reason: Constipation) Patient Comments: 12/09- otc unable to verify loratadine 10 mg tablet 10 mg PO QAM Patient Comments: 12/09- otc unable to verify hydrocortisone 2.5 % cream 1 applic topical BID PRN (Reason: rash) Qty: 30 6RF hydrocortisone-pramoxine 25-18 mg suppository 1 supp PA BID Qty: 12 0RF Rx Instructions: As needed for rectal irritation/bleeding. pravastatin 10 mg tablet 10 mg PO DAILY Patient Comments: 12/09- otc unable to verify Discharge Orders: Discharge Order (Routine); Ordered 12/11/24 Ordered By: Sarthak Gregory Admission Data Admit Date/Time: 12/09/24 15:01 Attending Provider: Sarthak Gregory Admit Provider: Sarthak Gregory Primary Care Provider: Robin Mandujano Other Providers: Sarthak Gregory; Hernandez Morales I Hospital Stay Data Consultations 12/09/24 15:01 ED Decision to Admit Stat 12/10/24 09:00 Consult Gastroenterology Routine Procedures Performed Operation Date: 12/11/24 17:55 <No data on this case meets the specified criteria> Pending Results Patient Have Any Pending Studies at Discharge: No Discharge Instructions Given to Patient (Per Discharging Provider) See your PCP Dr. Robin Mandujano within 5-7 days of hospital discharge. Total Time Total Time Spent Total Time Spent (In Minutes): 35 minutes. Of this time period, 19 minutes were spent in coordinating patient's discharge. Coding Level of Care Code 53871 INP/OBS DISCH >30 MIN Diagnoses Acute GI bleeding K92.2 Polyp of ascending colon K63.5
[2024-12-12 07:47] VITALS: BP 121/83; PULSE 72; TEMP 97.7; O2SAT 94
--- NOTE | 2024-12-12 09:59 | Gastroenterology Progress Note ---
Date of Service December 12, 2024 Assessment & Plan (1) Melanotic stools: Plan: No further episodes. H/H normal. EGD normal yesterday. Recent colonoscopy in November 2024. His fecal occult blood testing on 12/10/2024 was negative. We discussed the possibility of a video capsule endoscopy as an outpatient. Continue to monitor for any evidence of returning overt GI bleeding and monitor H/H. It is reassuring that his FOB was negative. Admission and Anticipated Discharge Date Admission Date: December 09, 2024 Supervising Physician Co-Signing Physician Notes I saw and examined this patient with our nurse practitioner and agree with her assessment and plan. Patient discharged prior to my seeing him today. Plan will be for outpatient small bowel capsule study to exclude small bowel source for bleeding. Subjective Patient is a 64 yo male who presented due to concerns for melena. He has not continued to have melena throughout the admission. He had a colonoscopy on 11/12/24. He then underwent an EGD yesterday with no evidence of bleeding. Again, no further melena during the admission. H/H has remained within normal range--currently 14.7/43.1. Review of Systems Gastrointestinal: no abdominal pain, no diarrhea/loose stools and no melena Physical Exam Gastrointestinal (Abdomen): normal bowel sounds, soft, nontender, no hepatosplenomegaly Results & Data Results & Data Vital Signs (Past 12 Hours) Vital Signs Temp Pulse Resp BP Pulse Ox O2 Del Method 12/12/24 07:46 36.5 C 72 18 121/83 94 Room Air PG Care Time/CCT Total # of Minutes Spent Total Time Spent with Patient: Total time spent is greater than 50% in coordination of care (as documented) at patient's floor/unit and/or counseling patient: Coding Level of Care Code 00666 SUB INP/OBS CARE 3/50MIN Diagnoses Melanotic stools K92.1
== END 2024-12-12 11:10 | disposition home or self-care (01) ==
LOC: ED 12:18 → EDINP 12:18 → 3W 20:08